=== PATIENT | male | born 1960 | race Two or more races ===

== ENCOUNTER → 2016-04-01 | Outpatient (CLI) | payer OTHER ==
[~2016-04-01] MED LIST: /WARF25TA PO; ALBU17IN INH; EFFE37.527 PO; METOPROLOL SUCCINATE; OMEPPOW18 OR; OXYC30TA4 PO; PERCOCET PO; PRAV40TA PO; PRIL20CA9 PO; SING10TA32 PO; TOPR25TA PO; TYLE325T5 PO; VENL37TA OR; albuterol inhaler INH; allergy shots; effexor OR; pravastatin OR
[2016-04-01 12:25] LABS: MEAN CORPUSCULAR HEMOGLOBIN 32.3 pg (27.0-33.0); MEAN CORPUSCULAR HGB CONC 34.6 g/dl (32.0-36.5); MEAN CORPUSCULAR VOLUME 93.2 fl (80.0-96.0); RED CELL DISTRIBUTION WIDTH 12.5 % (11.5-14.5); WHITE BLOOD COUNT 5.4 K/mm3 (4.0-10.0)
[2016-04-01 12:29] LABS: INR 0.96
[2016-04-01 13:02] LABS: ALBUMIN 4.1 GM/DL (3.2-5.2); ALBUMIN/GLOBULIN RATIO 1.17 (1.00-1.93); ALKALINE PHOSPHATASE 80 U/L (45-117); ALT/SGPT 53 U/L (12-78); ANION GAP 7 MEQ/L (8-16); AST/SGOT 29 U/L (15-37); BILIRUBIN,TOTAL 0.8 MG/DL (0.2-1.0); BLOOD UREA NITROGEN 13 MG/DL (7-18); CALCIUM LEVEL 9.3 MG/DL (8.5-10.1); CARBON DIOXIDE LEVEL 28 MEQ/L (21-32); CHLORIDE LEVEL 102 MEQ/L (98-107); CREATININE FOR GFR 1.03 MG/DL (0.70-1.30); GLOMERULAR FILTRATION RATE > 60.0 (>56); GLUCOSE, FASTING 96 MG/DL (70-105); POTASSIUM SERUM 4.5 MEQ/L (3.5-5.1); SODIUM LEVEL 137 MEQ/L (136-145); TOTAL PROTEIN 7.6 GM/DL (6.4-8.2)
--- NOTE | 2016-04-01 16:16 | REP ---
Chest x-ray: Two views. History: Hypertension. Comparison study: April 11, 2014 . Findings: The lungs are well inflated and free of infiltrate. The pleural angles are sharp. The heart size is normal. Pulmonary vasculature is not increased. No significant bony abnormality is seen. Impression: Negative chest x-ray. Signed by Michael Morales MD 04/01/2016 04:08 P
--- NOTE | 2016-04-01 23:14 | ECGEPIP ---
Stationary ECG Study [facility] Test Date: 2016-04-01 Pat Name: ELVA ODDD Department: Room: - Gender: M Cardiac Rehabilitation Program Director: JULIAN : 1960 Requested By: Jada George Order Number: [id number] Reading MD: Willem Vaughan Measurements Intervals [place] Rate: 55 P: 30 WI: 184 QRS: 23 QRSD: 106 T: 20 QT: 407 QTc: 391 Interpretive Statements SINUS BRADYCARDIA SIMILAR 04/01/14 Electronically Signed On 04-01-2016 23:13:30 EST by Willem Vaughan
== END ==
LOC: EDSTATUS 10:30 → M ADMPAT 10:35
PROVIDERS: ATTEND Orthopaedic Surgery
DX: Z01.818 Encounter for other preprocedural examination (principal); M17.11 Unilateral primary osteoarthritis, right knee

== ENCOUNTER 2016-04-13 09:57 | Inpatient (IN) | payer OTHER ==
[2016-04-01 11:18] VITALS: BP 155/84
[~2016-04-13] VITALS: Ht 185.4 cm; Wt 120.0 kg
[2016-04-13] MEDS ORDERED: LR 1,000 ML IV SCH ×4 (10:15→15:00)
[2016-04-13] MEDS ORDERED: VANCOMYCIN HCL 1,000 MG, VIAL MATE ADAPTER 1 EACH in D5W 250 ML IV ONE ×2 (10:15→23:00)
[2016-04-13] MEDS ORDERED: ACETAMINOPHEN 500 MG TAB PO ONE (10:15)
[2016-04-13] MEDS ORDERED: TRANEXAMIC ACID 100 MG/ML 10ML VIAL As Ordered ONE (10:29)
[2016-04-13] MEDS ORDERED: ROPIvacaine 0.5% 30 ML INJECTION (J2795) As Ordered ONE (10:29)
[2016-04-13] MEDS ORDERED: BUPIVACAINE HCL 0.5% 10 ML VIAL As Ordered ONE (10:30)
[2016-04-13] MEDS ORDERED: EPINEPHrine INJ 1 MG/ML 1ML VIAL/AMP As Ordered ONE (10:30)
[2016-04-13] MEDS ORDERED: ceFAZolin 1GM INJ (J0690) As Ordered ONE (10:30)
[2016-04-13] MEDS ORDERED: CLINDAMYCIN INJ 900MG/6ML VIAL As Ordered ONE (10:39)
[2016-04-13] MEDS ORDERED: fentaNYL 100 MCG/2 ML INJECTION (J3010) As Ordered ONE ×3 (10:51→12:34)
[2016-04-13] MEDS ORDERED: MIDAZOLAM INJ 2 MG/2 ML VIAL (J2250) As Ordered ONE ×2 (10:51→11:48)
[2016-04-13] MEDS ORDERED: XANA0.5T PO (10:57)
[2016-04-13] MEDS ORDERED: PROPOFOL 200 MG/20 ML VIAL As Ordered ONE ×2 (12:34→13:11)
[2016-04-13] MEDS ORDERED: LIDOCAINE 2% INJ 100 MG/5 ML SDV (FOR ANES.) As Ordered ONE (12:34)
[2016-04-13] MEDS ORDERED: TRANEXAMIC ACID 100 MG/ML 10ML VIAL XX ONE (12:52)
[2016-04-13] MEDS ORDERED: CLINDAMYCIN INJ 900MG/6ML VIAL IR ONE (12:52)
[2016-04-13] MEDS ORDERED: fentaNYL 100 MCG/2 ML INJECTION (J3010) XX ONE (12:52)
[2016-04-13] MEDS ORDERED: BUPIVACAINE HCL 0.5% 10 ML VIAL XX ONE (12:52)
[2016-04-13] MEDS ORDERED: EPINEPHrine INJ 1 MG/ML 1ML VIAL/AMP XX ONE (12:52)
[2016-04-13] MEDS ORDERED: ROPIvacaine 0.5% 30 ML INJECTION (J2795) XX ONE (12:52)
[2016-04-13] MEDS ORDERED: MIDAZOLAM INJ 2 MG/2 ML VIAL (J2250) IV ONE (13:00)
[2016-04-13] MEDS ORDERED: fentaNYL 100 MCG/2 ML INJECTION (J3010) IV ONE (13:00)
[2016-04-13] MEDS ORDERED: dexameTHASONE 10 MG/1 ML VIAL PRES.FREE (J1100) ONE (13:18)
[2016-04-13] MEDS ORDERED: LIDOCAINE W/EPINEPHRINE 1% 20ML VIAL ONE (13:18)
[2016-04-13] MEDS ORDERED: ROPIvacaine 0.5% 30 ML INJECTION (J2795) ONE (13:18)
[2016-04-13] MEDS ORDERED: MORPHINE PCA 1MG/ML 100ML CADD As Ordered ONE (14:19)
[2016-04-13] MEDS ORDERED: FLEET ENEMA PR PRN (14:45)
[2016-04-13] MEDS ORDERED: ALPRAZolam 0.25 MG TAB PO PRN (14:45)
[2016-04-13] MEDS ORDERED: ALBUTEROL 90 MCG/ACT 8GM HFA INHALER INH PRN (14:45)
[2016-04-13] MEDS ORDERED: diphenhydrAMINE INJ 50MG/ML VIAL (J1200) IV PRN (15:00)
[2016-04-13] MEDS ORDERED: PATIENT IS CURRENTLY ON AN ON-Q PAIN BUSTER PAIN RELIEF SYSTEM XX SCH (15:00)
[2016-04-13] MEDS ORDERED: EPIDURAL/PCA KEYS XX PRN (15:00)
[2016-04-13] MEDS ORDERED: fentaNYL 100 MCG/2 ML INJECTION (J3010) IV PRN (15:00)
[2016-04-13] MEDS ORDERED: NALBUPHINE HCL 10 MG/ML AMP (J2300) IV PRN (15:00)
[2016-04-13] MEDS ORDERED: MORPHINE 2 MG/ML 1ML SYRINGE IV PRN (15:00)
[2016-04-13] MEDS ORDERED: MORPHINE PCA 1MG/ML 100ML CADD IV PRN (15:00)
[2016-04-13] MEDS ORDERED: ONDANSETRON 4MG/2ML VIAL (J2405) IV PRN ×2 (15:00)
[2016-04-13] MEDS ORDERED: NALOXONE INJ 0.4 MG/1 ML VIAL (J2310) IV PRN (15:00)
[2016-04-13] MEDS ORDERED: WARFARIN SOD 5 MG TAB PO ONE (17:00)
--- NOTE | 2016-04-13 17:21 | CR ---
DATE OF CONSULTATION: 04/13/[address] Sumi Georges REFERRING PHYSICIAN: Dr. Perez REASON FOR CONSULTATION: Medical management. HOSPITALIZATION COURSE: The patient is a 55-year-old male with a past medical history significant for allergic rhinitis, hypertension, gastroesophageal reflux disease (GERD), anxiety, hyperlipidemia, bilateral osteoarthritis status post multiple knee procedures, reactive airway disease, who presented to [facility] on 04/13/2016 for right knee replacement. Preoperative clearance was done by Dr. Neno Ortiz on 04/03/2016. The patient tolerated the procedure well. No complications. After the surgery, the hospitalist team was called for medical management. ALLERGIES: CEPHALEXIN. PAST MEDICAL HISTORY: 1. Allergic rhinitis. 2. Hypertension. 3. Gastroesophageal reflux disease (GERD). 4. Anxiety. 5. Hyperlipidemia. 6. Osteoarthritis. 7. Reactive airway disease. PAST SURGICAL HISTORY: Five knee surgeries in the past. Two sinus surgeries. SOCIAL HISTORY: Denies smoking. Drinks wine almost every night. No recreational drug use. REVIEW OF SYSTEMS: GENERAL: No fever or chills. HEENT: No vision changes. No auditory changes. CARDIOVASCULAR: No chest pain, palpitations. RESPIRATORY: Reactive airway disease, uses breathing treatments intermittently. On Singulair. Currently no cough, no wheezes, no shortness of breath. GASTROINTESTINAL: No nausea. No vomiting. No abdominal pain. No diarrhea. MUSCULOSKELETAL: Multiple knee surgeries in the past. Today has a right knee replacement. NEUROLOGIC: No numbness or tingling. VITAL SIGNS: Blood pressure is 117/75, heart rate is 52, respiration rate 16. PHYSICAL EXAMINATION: GENERAL: No acute distress. Alert and oriented times three. HEENT: Normocephalic, atraumatic. Extraocular muscles intact. CARDIOVASCULAR: Positive S1, S2. Regular rate. LUNGS: Clear to auscultation bilaterally. No wheezes or rhonchi. ABDOMEN: Obese. Soft, nontender, nondistended. Bowel sounds present. No rebound or guarding. EXTREMITIES: No edema. No sign of cyanosis. Thromboembolic compression stockings (TEDS), sequential compression device (SCD) in place. NEUROLOGIC: Sensation to fine touch is grossly intact. Muscle strength 5/5. LABORATORY DATA: WBC 5.4, hemoglobin 16.2, hematocrit 46.9, platelet count is 235. Sodium is 137, potassium 4.5, chloride 102, carbon dioxide 28, BUN 13, creatinine 1.03, GFR greater than 60, fasting glucose 96, calcium is 9.3, phosphorous 3, total bilirubin 0.8, AST is 29, ALT 53, alkaline phosphatase 80, total CK is 168. ASSESSMENT AND PLAN: 1. Right knee replacement. Surgery was performed by Dr. Perez on 04/13/2016. I will defer pain management, activity level, diet, and anticoagulation to the primary team. 2. Anxiety. The patient was restarted on Effexor 37.5 mg by mouth daily. At baseline, the patient uses Xanax weekly to control the flares. The patient will have Xanax as needed here. 3. Hypertension. We will continue the patient on metoprolol 20 mg by mouth daily. 4. Gastroesophageal reflux disease (GERD). Continue omeprazole 40 mg by mouth daily. 5. Reactive airway disease. Continue on Singulair. The patient has as needed albuterol nebulizers. 6. Deep vein thrombosis (DVT) prophylaxis. Per surgical team.
[2016-04-13 17:30] VITALS: BP 145/88
[2016-04-13 18:00] VITALS: BP 135/76
[2016-04-13] MEDS: MONTELUKAST 10 MG TAB PO SCH (18:06)
[2016-04-13 19:00] VITALS: BP 130/96
--- NOTE | 2016-04-13 19:14 | RO ---
DATE OF PROCEDURE: 04/13/2016 PREPROCEDURE DIAGNOSIS: Right knee degenerative arthritis. POSTPROCEDURE DIAGNOSIS: Right knee degenerative arthritis. PROCEDURE: Right total knee arthroplasty using a size 5 cruciate-retaining femoral component, size 5 tibial tray, 10.5 mm rotating platform polyethylene insert and a 38 mm polyethylene button. Prosthesis made by [employer] is a PFC knee. SURGEON: Dr. Jada Perez CRANE HOIST OR LIFT OPERATOR: Mr. Sergey Hewitt ANESTHESIA: Spinal. COMPLICATIONS: None. ESTIMATED BLOOD LOSS: Less than 20 mL. DRAINS: One, PainBuster. SPECIMENS: Joint surface. DESCRIPTION OF PROCEDURE: Antibiotics were given intravenously preoperatively successfully, then a Elkins catheter was placed, tourniquet placed on the right upper thigh and not inflated. The right lower extremity was prepped and draped in the usual sterile fashion and then the leg was elevated. After appropriate time out, tourniquet was inflated, longitudinal incision was made for a medial parapatellar approach to the knee. Bovie cautery was used to coagulate crossing vessels. A medial parapatellar arthrotomy was performed. Subperiosteal dissection around the proximal and medial portion of the tibia was performed, then we everted the patella and flexed the knee. It was noteworthy he had a large Juliocesar-Schlatter ossicle, which we left alone at the insertion of the patellar tendon over the tibial tubercle. The starter reamer was placed down the center of the femoral canal, followed by the distal femoral cutting jig set at 10 mm resection level at 5 degree valgus for a right knee. I did remove any remaining bits of cartilage off the medial femoral condyle such that the distal femoral block would sit flush. It was pinned into position, the distal femoral cut performed. We took an additional 2 mm because of his flexion contracture. The AP sizing jig measured for about a 5.2, so I pinned it in place and elected to use a #5. The 3-degree external rotation block was placed and drill holes were made and the 4-in-1 block applied, then the anterior, posterior, chamfer cuts performed. We then exposed the proximal tibia, performed a proximal tibial osteotomy using the extramedullary alignment jig, making sure we were parallel to the mechanical axis, referencing off the medial tibial condyle and selected a 4 mm resection level. Block was pinned into place. Secondary check with the extramedullary mena confirmed we had good alignment and thus the osteotomy was performed. We then placed the lamina medical records administrator medially and performed a completion lateral meniscectomy and debridement of posterolateral osteophytes. We then placed the lamina medical records administrator laterally and performed a completion medial meniscectomy, debridement of the posteromedial osteophytes, as well as made sure we had good posteromedial release. The sizing block measured nicely at 10 mm in flexion and 11 mm in extension with very good stability of varus, valgus, AP stress testing. Thus, I felt this was the appropriate size component to use. We then exposed the proximal tibia, sized for a #5 tibial tray, which was pinned into position, followed by the reamer and the broach, then the trial polyethylene was applied, followed by the trial femoral component, and the knee was brought into extension. He had excellent stability once again in flexion and extension to AP and varus/valgus stress testing. With the knee in extension, I everted the patella, performed a patellar osteotomy, sized for a 38 mm button. The lug holes were drilled. Patellofemoral tracking was anatomic. We drilled the lug holes for the femur, removed all of the trial components, then copiously pulsatile lavage irrigated out the knee joint. I did do a little bit of posterior cruciate ligament release just to help a bit with some excessive posterior roll back in extreme flexion. Mr. Hewitt was critical to the success of the procedure by helping with appropriate soft tissue retraction, helping to manipulate the knee and helped to close the wound and prepare the patient for surgery, amongst many other tasks, as well as mixing the cement. Once all of the bony surfaces had been thoroughly dried, I cemented the tibial tray, removed excess cement, placed the polyethylene, then we cemented the femoral component and brought the knee into extension, and then cemented the patellar button and held it with a clamp until the cement had hardened. While we were waiting for it to harden, we copiously pulsatile lavage irrigated out the knee joint as I did several times throughout the operation. We then put two #1 PDS sutures at the apex proximally of the arthrotomy and then one at the medial parapatellar area to set the tension and then used a running double-armed Stratafix to close the capsule. The tourniquet was released at this point. TXA was placed prior to closure of the capsule and then we placed the PainBuster catheter from superolateral puncture underneath the capsule after the capsule had been closed. We copiously irrigated the subdermal tissues, they were then closed with interrupted #2-0 PDS sutures, skin was closed with stefany, covered by Adaptic dry sterile bulky dressing. He was then transferred to the recovery room in stable condition. There were no intraoperative complications.
[2016-04-13 20:00] VITALS: BP 144/83
[2016-04-13 21:00] VITALS: BP 134/86
[2016-04-13 22:00] VITALS: BP_SYST 144; BP_DIAS 81; BP_DIAS 83
[2016-04-14 02:00] VITALS: BP 108/79
[2016-04-14 06:00] VITALS: BP 126/72
[2016-04-14] MEDS ORDERED: ONDANSETRON 4 MG TAB (S0181) PO PRN (06:30)
[2016-04-14] MEDS ORDERED: PERCOCET 5MG/325MG TAB PO PRN (06:30)
[2016-04-14 07:11] LABS: MEAN CORPUSCULAR HEMOGLOBIN 33.2 pg (27.0-33.0); MEAN CORPUSCULAR HGB CONC 34.6 g/dl (32.0-36.5); RED CELL DISTRIBUTION WIDTH 12.7 % (11.5-14.5); WHITE BLOOD COUNT 14.4 K/mm3 (4.0-10.0)
[2016-04-14 07:19] LABS: INR 1.08
[2016-04-14 07:20] LABS: ANION GAP 6 MEQ/L (8-16); BLOOD UREA NITROGEN 10 MG/DL (7-18); CALCIUM LEVEL 8.5 MG/DL (8.5-10.1); CARBON DIOXIDE LEVEL 31 MEQ/L (21-32); CHLORIDE LEVEL 100 MEQ/L (98-107); GLOMERULAR FILTRATION RATE > 60.0 (>56); GLUCOSE, FASTING 127 MG/DL (70-105); POTASSIUM SERUM 4.1 MEQ/L (3.5-5.1); SODIUM LEVEL 137 MEQ/L (136-145)
[2016-04-14] MEDS: OMEPRAZOLE 20 MG CAP PO SCH (09:00)
[2016-04-14] MEDS: VENLAFAXINE **XR** 37.5 MG CAPSULE PO SCH (09:00)
[2016-04-14] MEDS: METOPROLOL SUCC *XL* 25MG TAB (TopROL *XL*) PO SCH (09:00)
[2016-04-14] MEDS ORDERED: VENLAFAXINE **XR** 37.5 MG CAPSULE PO SCH (09:00)
[2016-04-14] MEDS: PRAVASTATIN 20 MG TAB PO SCH (09:00)
[2016-04-14] MEDS ORDERED: MONTELUKAST 10 MG TAB PO SCH (09:00)
[2016-04-14] MEDS ORDERED: OMEPRAZOLE 20 MG CAP PO SCH (09:00)
[2016-04-14] MEDS: SENOKOT S TAB PO SCH ×2 (09:26→21:45)
[2016-04-14] MEDS: MIRALAX *UNIT DOSE* 17GM PACKET PO SCH (09:26)
[2016-04-14] MEDS: MOM 30ML SUSPENSION UDC PO SCH (09:26)
[2016-04-14] MEDS: MONTELUKAST 10 MG TAB PO SCH (09:29)
[2016-04-14] MEDS: PERCOCET 5MG/325MG TAB PO PRN ×4 (09:30→21:47)
[2016-04-14 10:00] VITALS: BP 135/76
--- NOTE | 2016-04-14 11:25 | REP ---
Clinical: Status post arthroplasty. Technique: AP and cross-table lateral views. Findings: The patient is status post right knee replacement with normal positioning and appearance to the femoral and tibial components. Overlying postsurgical changes appreciated. Impression: Satisfactory right knee replacement radiographs. Signed by Jonny Patterson MD 04/14/2016 11:17 A
[2016-04-14 14:00] VITALS: BP 138/78
[2016-04-14] MEDS ORDERED: WARFARIN SOD 5 MG TAB PO ONE (17:00)
[2016-04-14 22:00] VITALS: BP 167/88
[2016-04-15] MEDS: ACETAMINOPHEN TAB 650MG DOSE (2X325MG) PO PRN ×2 (00:20→05:06)
--- NOTE | 2016-04-15 00:35 | IPNPDOC ---
Subjective General Date Seen The patient was seen on 04/14/16. Subjective Chief Complaint/HPI The patient is a 55-year-old male admitted with a reason for visit of Arthritis Right Knee. Today he reports that his pain is controlled. He feels "groggy" on the pain medications. Was able to eat dinner last night. Has not had a BM since surgery. Needed O2 overnight because his saturations were low. Denies any fevers, dyspnea , SOB. Has some knee soreness around surgical site. General: Reports: Normal Appetite, Denies: Chills, Fatigue, Malaise, Night Sweats Constitutional: Denies: Chills, Fever, Night Sweats Pulmonary: Denies: Cough, Dyspnea Cardiovascular: Denies: Chest Pain, Lt Headedness, Orthopnea, Palpitations, Paroxysmal Noc. Dyspnea Gastrointestinal: Denies: Abdominal Pain, Constipation, Diarrhea, Nausea, Vomiting Musculoskeletal: Reports: Joint Pain (L knee soreness, postop), Denies: Back Pain, Muscle Pain, Neck Pain, Spasms Objective Physical Examination General Exam: Positive: Alert, No Acute Distress Neck Exam: Positive: Supple, Negative: JVD, thyromegaly Chest Exam: Positive: Clear to auscultation, Normal air movement Heart Exam: Positive: Normal S1, Normal S2, Rate Normal, Regular Rhythm, Negative: Murmurs, Rubs Abdomen Exam: Positive: Normal bowel sounds, Soft, Negative: Hepatospenomegaly, Tenderness Skin Exam: Positive: Other skin issue (Surgical incision site on R knee. Dressing intact. No swelling or edema to surrounding skin.) Neuro Exam: Positive: Normal Speech Assessment /Plan Problems Problems: (1) Degenerative arthritis of right knee Status: Acute Problem Text: Post op day #1 s/p Right total knee arthroplasty Surgical site dressed and intact. No swelling to surrounding skin. Pt still feels sore, but is tolerated with pain medications that are managed by ortho. (2) HTN (hypertension) Status: Chronic Problem Text: BP controlled today, we will continue to monitor. Pt was continued on home medication (3) Reactive airway disease Status: Acute Problem Text: Cont Singulair. No respiratory symptoms today. (4) Anxiety Status: Chronic Problem Text: Restarted on home medications for anxiety. (5) GERD (gastroesophageal reflux disease) Status: Chronic Problem Text: Cont on home medications. stable today. Plan/VTE VTE Prophylaxis Ordered?: Yes VS, I&O, 24H, Fishbone Vital Signs/I&O Vital Signs Date Time Temp Pulse Resp B/P Pulse Ox O2 Delivery O2 Flow Rate FiO2 04/14/16 09:30 18 04/14/16 06:00 96.7 88 126/72 97 Room Air 04/14/16 05:37 2.0 I&O- Last 24 Hours up to 6 AM 04/14/16 06:00 Intake Total 2140 ml Output Total 2300 ml Balance -160 ml Laboratory Data 24H LABS Laboratory Tests 2 04/14/16 06:24: Anion Gap 6L, Blood Urea Nitrogen 10, Creatinine 0.90, Sodium Level 137, Potassium Level 4.1, Chloride Level 100, Carbon Dioxide Level 31, Calcium Level 8.5, Glomerular Filtration Rate > 60.0, Prothromb Time International Ratio 1.08 , Prothrombin Time 14.1 CBC/BMP Laboratory Tests 04/14/16 06:24 Calcium Level 8.5, Red Blood Count 4.53, Mean Corpuscular Volume 96.0, Mean Corpuscular Hemoglobin 33.2 H, Mean Corpuscular Hemoglobin Concent 34.6, Red Cell Distribution Width 12.7 SUSAN SWAN DO Apr 14, 2016 10:43
[2016-04-15] MEDS: PERCOCET 5MG/325MG TAB PO PRN ×4 (02:02→17:00)
[2016-04-15 06:00] VITALS: BP 182/90
[2016-04-15] MEDS ORDERED: MORPHINE 15 MG SA TAB As Ordered ONE (06:52)
[2016-04-15] MEDS: MORPHINE 15 MG SA TAB PO SCH ×2 (06:53→21:04)
[2016-04-15 06:58] LABS: MEAN CORPUSCULAR HEMOGLOBIN 32.2 pg (27.0-33.0); MEAN CORPUSCULAR HGB CONC 33.8 g/dl (32.0-36.5); MEAN CORPUSCULAR VOLUME 95.3 fl (80.0-96.0); WHITE BLOOD COUNT 9.6 K/mm3 (4.0-10.0)
[2016-04-15 07:00] LABS: INR 1.28
[2016-04-15 07:04] LABS: ANION GAP 8 MEQ/L (8-16); BLOOD UREA NITROGEN 8 MG/DL (7-18); CALCIUM LEVEL 8.4 MG/DL (8.5-10.1); CARBON DIOXIDE LEVEL 31 MEQ/L (21-32); CHLORIDE LEVEL 97 MEQ/L (98-107); CREATININE FOR GFR 0.95 MG/DL (0.70-1.30); GLOMERULAR FILTRATION RATE > 60.0 (>56); GLUCOSE, FASTING 113 MG/DL (70-105); POTASSIUM SERUM 3.9 MEQ/L (3.5-5.1); SODIUM LEVEL 136 MEQ/L (136-145)
[2016-04-15] MEDS: SENOKOT S TAB PO SCH ×2 (08:49→21:05)
[2016-04-15] MEDS: PRAVASTATIN 20 MG TAB PO SCH (08:49)
[2016-04-15] MEDS: METOPROLOL SUCC *XL* 25MG TAB (TopROL *XL*) PO SCH (08:50)
[2016-04-15] MEDS: VENLAFAXINE **XR** 37.5 MG CAPSULE PO SCH (08:50)
[2016-04-15] MEDS: OMEPRAZOLE 20 MG CAP PO SCH (08:51)
[2016-04-15] MEDS: MOM 30ML SUSPENSION UDC PO SCH (08:51)
[2016-04-15] MEDS: MONTELUKAST 10 MG TAB PO SCH (08:51)
[2016-04-15] MEDS: MIRALAX *UNIT DOSE* 17GM PACKET PO SCH (08:52)
[2016-04-15] MEDS: ALBUTEROL 90 MCG/ACT 8GM HFA INHALER INH PRN ×2 (08:58→20:12)
[2016-04-15] MEDS ORDERED: MORPHINE 30 MG SA TAB PO SCH (09:00)
[2016-04-15] MEDS ORDERED: MORPHINE 15 MG SA TAB PO SCH (09:00)
[2016-04-15 14:00] VITALS: BP 152/88
[2016-04-15 22:00] VITALS: BP 158/77
[2016-04-16] MEDS: PERCOCET 5MG/325MG TAB PO PRN ×2 (01:08→05:36)
[2016-04-16 06:00] VITALS: BP 143/83
[2016-04-16] MEDS ORDERED: MAGNESIUM CITRATE 300 ML BTL PO ONE (06:45)
[2016-04-16 07:17] LABS: INR 1.11
[2016-04-16 07:19] LABS: MEAN CORPUSCULAR HGB CONC 33.6 g/dl (32.0-36.5); MEAN CORPUSCULAR VOLUME 95.3 fl (80.0-96.0); RED CELL DISTRIBUTION WIDTH 12.7 % (11.5-14.5)
[2016-04-16] MEDS: ALBUTEROL 90 MCG/ACT 8GM HFA INHALER INH PRN (07:30)
[2016-04-16 07:37] LABS: ANION GAP 7 MEQ/L (8-16); BLOOD UREA NITROGEN 8 MG/DL (7-18); CALCIUM LEVEL 8.4 MG/DL (8.5-10.1); CARBON DIOXIDE LEVEL 32 MEQ/L (21-32); CHLORIDE LEVEL 99 MEQ/L (98-107); CREATININE FOR GFR 0.96 MG/DL (0.70-1.30); GLOMERULAR FILTRATION RATE > 60.0 (>56); GLUCOSE, FASTING 108 MG/DL (70-105); POTASSIUM SERUM 3.7 MEQ/L (3.5-5.1); SODIUM LEVEL 138 MEQ/L (136-145)
[2016-04-16] MEDS ORDERED: MORP-38 PO (07:55)
[2016-04-16] MEDS ORDERED: PERC5TAB6 PO (07:55)
[2016-04-16] MEDS ORDERED: COUM2.5T11 PO (07:55)
[2016-04-16] MEDS ORDERED: ENOXAPARIN 40 MG/0.4 ML SYRINGE (J1650) SC ONE (08:00)
--- NOTE | 2016-04-16 08:32 | IPNPDOC ---
Subjective General Date Seen The patient was seen on 04/16/16. Subjective Chief Complaint/HPI The patient is a 55-year-old male admitted with a reason for visit of Arthritis Right Knee. Events since last encounter pt seen and examined, doing well, wants to go home today Constitutional: Denies: Chills, Fever, Night Sweats Pulmonary: Denies: Cough, Dyspnea Cardiovascular: Denies: Chest Pain, Lt Headedness, Orthopnea, Palpitations, Paroxysmal Noc. Dyspnea Objective Physical Examination General Exam: Positive: Alert, No Acute Distress Neck Exam: Positive: Supple, Negative: JVD, thyromegaly Chest Exam: Positive: Clear to auscultation, Normal air movement Heart Exam: Positive: Normal S1, Normal S2, Rate Normal, Regular Rhythm, Negative: Murmurs, Rubs Abdomen Exam: Positive: Normal bowel sounds, Soft, Negative: Hepatospenomegaly, Tenderness Skin Exam: Positive: Other skin issue (Surgical incision site on R knee. Dressing intact. No swelling or edema to surrounding skin.) Neuro Exam: Positive: Normal Speech Assessment /Plan Problems Problems: (1) Degenerative arthritis of right knee Status: Acute Problem Text: * Post op day #3 s/p Right total knee arthroplasty * Surgical site dressed and intact. No swelling to surrounding skin. * can be discharged today (2) HTN (hypertension) Status: Chronic Problem Text: BP controlled today, Pt was continued on home medication (3) Reactive airway disease Status: Acute Problem Text: Cont Singulair. No respiratory symptoms today. (4) Anxiety Status: Chronic Problem Text: continue home medications for anxiety. (5) GERD (gastroesophageal reflux disease) Status: Chronic Problem Text: Cont on home medications. stable today. Plan/VTE VTE Prophylaxis Ordered?: Yes VS, I&O, 24H, Fishbone Vital Signs/I&O Vital Signs Date Time Temp Pulse Resp B/P Pulse Ox O2 Delivery O2 Flow Rate FiO2 04/16/16 07:56 Room Air 04/16/16 06:06 18 04/16/16 06:00 97.8 70 143/83 94 04/14/16 05:37 2.0 I&O- Last 24 Hours up to 6 AM 04/16/16 06:00 Intake Total 2280 ml Output Total 2050 ml Balance 230 ml Laboratory Data 24H LABS Laboratory Tests 2 04/16/16 06:59: Anion Gap 7L, Blood Urea Nitrogen 8, Creatinine 0.96, Sodium Level 138, Potassium Level 3.7, Chloride Level 99, Carbon Dioxide Level 32, Calcium Level 8.4L, Glomerular Filtration Rate > 60.0, Prothromb Time International Ratio 1.11 , Prothrombin Time 14.4 CBC/BMP Laboratory Tests 04/16/16 06:59 Calcium Level 8.4 L, Red Blood Count 3.94 L, Mean Corpuscular Volume 95.3, Mean Corpuscular Hemoglobin 32.0, Mean Corpuscular Hemoglobin Concent 33.6, Red Cell Distribution Width 12.7 PATRICK GARAY DO Apr 16, 2016 08:32
[2016-04-16] MEDS: PRAVASTATIN 20 MG TAB PO SCH (09:43)
[2016-04-16] MEDS: MOM 30ML SUSPENSION UDC PO SCH (09:43)
[2016-04-16] MEDS: MONTELUKAST 10 MG TAB PO SCH (09:44)
[2016-04-16] MEDS: VENLAFAXINE **XR** 37.5 MG CAPSULE PO SCH (09:44)
[2016-04-16] MEDS: MORPHINE 15 MG SA TAB PO SCH (09:44)
[2016-04-16] MEDS: SENOKOT S TAB PO SCH (09:44)
[2016-04-16 09:45] VITALS: BP 143/83
[2016-04-16] MEDS: OMEPRAZOLE 20 MG CAP PO SCH (09:45)
[2016-04-16] MEDS: METOPROLOL SUCC *XL* 25MG TAB (TopROL *XL*) PO SCH (09:45)
[2016-04-16] MEDS: MIRALAX *UNIT DOSE* 17GM PACKET PO SCH (09:45)
--- NOTE | 2016-04-16 10:10 | NOCOX ---
DATE OF PROCEDURE: Nocturnal recording oximetry was performed on room air. Baseline oxygen saturation was 92%. Lowest oxygen saturation recorded was 84%. The pattern was one of periodic variable desaturations. IMPRESSION: Normal baseline oxygen saturation on room air with pattern of periodic desaturations consistent with obstructive sleep apnea syndrome. Consider formal sleep testing if clinically indicated.
--- NOTE | 2016-04-20 10:08 | DSES ---
DATE OF ADMISSION: 04/13/2016 DATE OF DISCHARGE: 04/16/2016 ADMISSION DIAGNOSIS: Right knee osteoarthritis. DISCHARGE DIAGNOSIS: Status post right total knee arthroplasty. HOSPITAL COURSE: The patient uneventfully underwent right total knee arthroplasty under spinal anesthesia. Medical optimization per Dr. Neno Ortiz. X-rays are consistent with advanced osteoarthritis. OPERATION PERFORMED: Right total knee arthroplasty. HOSPITAL COURSE: The patient uneventfully underwent right total knee arthroplasty under spinal anesthesia and was returned to postanesthesia care unit (PACU) comfortable. Our hospital team decided to discharge the patient on 04/16/2016, with the following instructions. Weightbearing as tolerated right lower extremity with walker. Percocet as needed for pain. Coumadin and thromboembolic deterrent (ANUJ) stockings times 30 days. Diet as regular. Optifoam dressing change in 4 days time. Followup in office 12-14 days for wound check, staple removal. The patient is encouraged to contact our office sooner with increased pain, bleeding, drainage, radiating leg discomfort, fever greater than 101 or further concerns. MTDDon
== END 2016-04-16 11:32 | disposition home health service (06) | DRG 302 ==
LOC: M OR 09:57 → M MS5PR 17:10
PROVIDERS: ADMIT Orthopaedic Surgery; ATTEND Orthopaedic Surgery
PROC: 0SRC0J9 Replacement of Right Knee Joint with Synthetic Substitute, Cemented, Open Approach (ICD-10-PCS; principal; 2016-04-13 11:50)
DX: M17.11 Unilateral primary osteoarthritis, right knee (principal); I10 Essential (primary) hypertension; J45.909 Unspecified asthma, uncomplicated; K21.9 Gastro-esophageal reflux disease without esophagitis; F41.8 Other specified anxiety disorders; E78.2 Mixed hyperlipidemia; E66.9 Obesity, unspecified; Z88.1 Allergy status to other antibiotic agents; Z79.1 Long term (current) use of non-steroidal anti-inflammatories (NSAID); Z79.51 Long term (current) use of inhaled steroids; Z79.899 Other long term (current) drug therapy; Z96.652 Presence of left artificial knee joint; Z68.38 Body mass index [BMI] 38.0-38.9, adult

== ENCOUNTER 2017-07-05 14:48 | Inpatient (IN) | payer OTHER ==
[2017-07-05 15:31] LABS: BASO % 0.1 % (0.0-1.0); EOS % 0.1 % (0.0-3.0); HEMATOCRIT 46.9 % (42.0-52.0); HEMOGLOBIN 16.2 g/dl (13.5-17.5); IMMATURE GRANULOCYTE % 0.3 % (0-3.0); LYMPH # 0.8 10^3/uL (1.5-4.5); LYMPH % 5.6 % (24.0-44.0); MEAN CORPUSCULAR HEMOGLOBIN 32.5 pg (27.0-33.0); MEAN CORPUSCULAR HGB CONC 34.5 g/dl (32.0-36.5); MEAN CORPUSCULAR VOLUME 94.2 fl (80.0-96.0); MONO # 0.9 10^3/uL (0.0-0.8); MONO % 5.8 % (0.0-5.0); NEUTROPHILS # 13.2 10^3/uL (1.8-7.7); NEUTROPHILS % 88.1 % (36.0-66.0); PLATELET COUNT, AUTOMATED 236 10^3/uL (150-450); RED BLOOD COUNT 4.98 10^6/uL (4.30-6.10); RED CELL DISTRIBUTION WIDTH 13.5 % (11.5-14.5)
[2017-07-05 15:54] LABS: ERYTHROCYTE SEDIMENTATION RATE 17 mm/hr (0-20)
[2017-07-05 15:58] LABS: ALBUMIN 3.6 GM/DL (3.2-5.2); ALBUMIN/GLOBULIN RATIO 0.82 (1.00-1.93); ALKALINE PHOSPHATASE 77 U/L (45-117); ALT/SGPT 33 U/L (12-78); ANION GAP 9 MEQ/L (8-16); AST/SGOT 21 U/L (7-37); BILIRUBIN,TOTAL 1.2 MG/DL (0.2-1.0); BLOOD UREA NITROGEN 10 MG/DL (7-18); CALCIUM LEVEL 9.2 MG/DL (8.5-10.1); CARBON DIOXIDE LEVEL 24 MEQ/L (21-32); CHLORIDE LEVEL 100 MEQ/L (98-107); CREATININE FOR GFR 1.05 MG/DL (0.70-1.30); GLOMERULAR FILTRATION RATE > 60.0 (>56); GLUCOSE, FASTING 142 MG/DL (70-100); POTASSIUM SERUM 3.9 MEQ/L (3.5-5.1); SODIUM LEVEL 133 MEQ/L (136-145)
[2017-07-05] MEDS: ACETAMINOPHEN TAB 650MG DOSE (2X325MG) PO ×2 (16:41→20:53)
[2017-07-05] MEDS ORDERED: MONTELUKAST 10 MG TAB PO (16:45)
[2017-07-05] MEDS: NS 500 ML IV (17:00)
[2017-07-05] MEDS: VANCOMYCIN HCL 1,000 MG, VIAL MATE ADAPTER 1 EACH in D5W 250 ML IV (17:16)
[2017-07-05] MEDS: MORPHINE 4 MG/ML 1ML VIAL/SYRINGE (J2270) IV (17:16)
[2017-07-05 18:15] LABS: KETONE, URINE AUTO RFX NEGATIVE (NEGATIVE); LEUKOCYTE ESTERASE UR AUTO RFX NEGATIVE (NEGATIVE); NITRITE, URINE AUTO RFX NEGATIVE (NEGATIVE); RBC, URINE AUTO RFX 5 /HPF (0-3); SQUAM EPITHELIAL CELL UR AURFX 0 /HPF (0-6); WBC, URINE AUTO RFX 1 /HPF (0-3)
[2017-07-05] MEDS: NS 1,000 ML IV (18:47)
[2017-07-05] MEDS: SENOKOT S TAB PO (20:52)
[2017-07-05] MEDS: ALBUTEROL 90 MCG/ACT 8GM HFA INHALER INH (21:59)
[2017-07-06] MEDS: ACETAMINOPHEN TAB 650MG DOSE (2X325MG) PO ×4 (01:37→20:21)
[2017-07-06] MEDS: VANCOMYCIN HCL 1,000 MG, VIAL MATE ADAPTER 1 EACH in D5W 250 ML IV ×3 (04:27→20:22)
[2017-07-06] MEDS: NS 1,000 ML IV (05:31)
[2017-07-06] MEDS: MORPHINE 4 MG/ML 1ML VIAL/SYRINGE (J2270) IV (05:32)
[2017-07-06 06:26] LABS: HEMATOCRIT 40.1 % (42.0-52.0); MEAN CORPUSCULAR HEMOGLOBIN 32.9 pg (27.0-33.0); MEAN CORPUSCULAR HGB CONC 35.2 g/dl (32.0-36.5); MEAN CORPUSCULAR VOLUME 93.5 fl (80.0-96.0); PLATELET COUNT, AUTOMATED 229 10^3/uL (150-450); RED BLOOD COUNT 4.29 10^6/uL (4.30-6.10); RED CELL DISTRIBUTION WIDTH 13.5 % (11.5-14.5); WHITE BLOOD COUNT 10.6 10^3/uL (4.0-10.0)
[2017-07-06] MEDS ORDERED: PERCOCET 5MG/325MG TAB PO ×2 (06:30→18:15)
[2017-07-06 06:33] LABS: HEMOGLOBIN 14.1 g/dl (13.5-17.5)
[2017-07-06 06:45] LABS: ANION GAP 7 MEQ/L (8-16); BLOOD UREA NITROGEN 9 MG/DL (7-18); CALCIUM LEVEL 8.5 MG/DL (8.5-10.1); CARBON DIOXIDE LEVEL 26 MEQ/L (21-32); CHLORIDE LEVEL 103 MEQ/L (98-107); CREATININE FOR GFR 0.92 MG/DL (0.70-1.30); GLOMERULAR FILTRATION RATE > 60.0 (>56); GLUCOSE, FASTING 105 MG/DL (70-100); POTASSIUM SERUM 3.5 MEQ/L (3.5-5.1); SODIUM LEVEL 136 MEQ/L (136-145)
[2017-07-06] MEDS: SENOKOT S TAB PO ×2 (08:22→20:22)
[2017-07-06] MEDS: PRAVASTATIN 20 MG TAB PO (08:22)
[2017-07-06] MEDS: METOPROLOL SUCC *XL* 25MG TAB (TopROL *XL*) PO (08:22)
[2017-07-06] MEDS: OMEPRAZOLE 20 MG CAP PO (08:23)
[2017-07-06] MEDS: PERCOCET 5MG/325MG TAB PO (09:51)
[2017-07-06] MEDS: TRANEXAMIC ACID 100 MG/ML 10ML VIAL As Ordered (14:14)
[2017-07-06] MEDS: EPINEPHrine INJ 1 MG/ML 1ML AMP As Ordered (14:14)
[2017-07-06] MEDS: BUPIVACAINE HCL 0.25% 10 ML VIAL As Ordered (14:14)
[2017-07-06] MEDS: BUPIVACAINE LIPOSOME/PF 1.3% 20 ML VIAL (13.3MG/ML)(EXPAREL) As Ordered (14:14)
[2017-07-06] MEDS ORDERED: TOBRAMYCIN SULF 1.2 GM VIAL (14:53)
[2017-07-06] MEDS ORDERED: TOBRAMYCIN SULF 1.2 GM VIAL As Ordered (14:53)
[2017-07-06] MEDS ORDERED: ALBUTEROL SULFATE 2.5 MG/0.5 ML INH NEB SOLN As Ordered (14:57)
[2017-07-06] MEDS: ALBUTEROL SULFATE 2.5 MG/0.5 ML INH NEB SOLN INH (15:10)
[2017-07-06] MEDS ORDERED: fentaNYL 100 MCG/2 ML INJECTION (J3010) As Ordered (16:14)
[2017-07-06] MEDS ORDERED: MIDAZOLAM INJ 2 MG/2 ML VIAL (J2250) As Ordered (16:14)
[2017-07-06] MEDS ORDERED: PROPOFOL 200 MG/20 ML VIAL As Ordered ×4 (16:14→17:10)
[2017-07-06] MEDS: CLINDAMYCIN INJ 900MG/6ML VIAL As Ordered ×2 (16:19→16:49)
[2017-07-06] MEDS: VANCOMYCIN 1000 MG/20 ML VIAL (J3370) As Ordered (17:23)
[2017-07-06] MEDS ORDERED: MORPHINE 1MG/ML IN 0.9% NACL 100ML IV BAG As Ordered (18:00)
[2017-07-06] MEDS ORDERED: MORPHINE 1MG/ML IN 0.9% NACL 100ML IV BAG IV (18:15)
[2017-07-06] MEDS ORDERED: ONDANSETRON 4MG/2ML VIAL (J2405) IV ×2 (18:15)
[2017-07-06] MEDS ORDERED: EPIDURAL/PCA KEYS XX (18:15)
[2017-07-06] MEDS ORDERED: NALOXONE INJ 0.4 MG/1 ML VIAL (J2310) IV (18:15)
[2017-07-06] MEDS: LR 1,000 ML IV ×2 (18:15→18:51)
[2017-07-06] MEDS ORDERED: NALBUPHINE HCL 10 MG/ML AMP (J2300) IV (18:15)
[2017-07-06] MEDS ORDERED: KETOROLAC 30 MG/ML VIAL (J1885) IV (18:15)
[2017-07-06] MEDS ORDERED: fentaNYL 100 MCG/2 ML INJECTION (J3010) IV (18:15)
[2017-07-06] MEDS ORDERED: FLEET ENEMA PR (18:30)
[2017-07-06] MEDS: WARFARIN SOD 5 MG TAB PO (20:22)
[2017-07-06] MEDS: diphenhydrAMINE INJ 50MG/ML VIAL (J1200) IV (20:22)
[2017-07-06] MEDS: ALBUTEROL 90 MCG/ACT 8GM HFA INHALER INH (22:50)
[2017-07-07] MEDS: ACETAMINOPHEN TAB 650MG DOSE (2X325MG) PO (00:45)
[2017-07-07] MEDS: ALPRAZolam 0.5 MG TAB PO (00:45)
[2017-07-07] MEDS: VANCOMYCIN HCL 1,000 MG, VIAL MATE ADAPTER 1 EACH in D5W 250 ML IV ×2 (04:13→12:31)
[2017-07-07 06:21] LABS: HEMATOCRIT 42.6 % (42.0-52.0); HEMOGLOBIN 14.3 g/dl (13.5-17.5); MEAN CORPUSCULAR HEMOGLOBIN 32.1 pg (27.0-33.0); MEAN CORPUSCULAR HGB CONC 33.6 g/dl (32.0-36.5); MEAN CORPUSCULAR VOLUME 95.7 fl (80.0-96.0); PLATELET COUNT, AUTOMATED 265 10^3/uL (150-450); RED BLOOD COUNT 4.45 10^6/uL (4.30-6.10); RED CELL DISTRIBUTION WIDTH 13.4 % (11.5-14.5); WHITE BLOOD COUNT 7.9 10^3/uL (4.0-10.0)
[2017-07-07 06:38] LABS: ANION GAP 7 MEQ/L (8-16); BLOOD UREA NITROGEN 9 MG/DL (7-18); CALCIUM LEVEL 8.7 MG/DL (8.5-10.1); CARBON DIOXIDE LEVEL 28 MEQ/L (21-32); CHLORIDE LEVEL 100 MEQ/L (98-107); CREATININE FOR GFR 0.88 MG/DL (0.70-1.30); GLOMERULAR FILTRATION RATE > 60.0 (>56); GLUCOSE, FASTING 98 MG/DL (70-100); POTASSIUM SERUM 3.6 MEQ/L (3.5-5.1); SODIUM LEVEL 135 MEQ/L (136-145)
[2017-07-07] MEDS: METOPROLOL SUCC *XL* 25MG TAB (TopROL *XL*) PO (06:38)
[2017-07-07 06:46] LABS: INR 1.08; PROTHROMBIN TIME 14.2 SECONDS (12.4-14.5)
[2017-07-07] MEDS ORDERED: ONDANSETRON 4 MG TAB (S0181) PO (07:00)
[2017-07-07] MEDS ORDERED: PERCOCET 5MG/325MG TAB PO (07:00)
[2017-07-07] MEDS: MOM 30ML SUSPENSION UDC PO (08:10)
[2017-07-07] MEDS: MIRALAX *UNIT DOSE* 17GM PACKET PO (08:10)
[2017-07-07] MEDS: OMEPRAZOLE 20 MG CAP PO (08:10)
[2017-07-07] MEDS: PRAVASTATIN 20 MG TAB PO (08:11)
[2017-07-07] MEDS: MORPHINE 15 MG SA TAB PO ×2 (08:11→21:43)
[2017-07-07] MEDS: SENOKOT S TAB PO ×2 (08:12→21:43)
[2017-07-07] MEDS: ALBUTEROL 90 MCG/ACT 8GM HFA INHALER INH (09:59)
[2017-07-07] MEDS: PERCOCET 5MG/325MG TAB PO ×2 (12:30→17:38)
[2017-07-07] MEDS ORDERED: VANCOMYCIN HCL 750 MG, VIAL MATE ADAPTER 1 EACH in D5W 250 ML IV (13:00)
[2017-07-07] MEDS: WARFARIN SOD 7.5 MG TAB PO (17:37)
[2017-07-07] MEDS: CETIRIZINE (ZyrTEC) 10 MG TAB PO (18:31)
[2017-07-08] MEDS: PERCOCET 5MG/325MG TAB PO ×2 (03:02→17:15)
[2017-07-08] MEDS: SODIUM CHLORIDE 0.9% INJ 10 ML SYR IV ×3 (06:00→17:16)
[2017-07-08 06:35] LABS: HEMATOCRIT 38.8 % (42.0-52.0); HEMOGLOBIN 13.6 g/dl (13.5-17.5); MEAN CORPUSCULAR HEMOGLOBIN 32.5 pg (27.0-33.0); MEAN CORPUSCULAR HGB CONC 35.1 g/dl (32.0-36.5); MEAN CORPUSCULAR VOLUME 92.6 fl (80.0-96.0); PLATELET COUNT, AUTOMATED 257 10^3/uL (150-450); RED BLOOD COUNT 4.19 10^6/uL (4.30-6.10); RED CELL DISTRIBUTION WIDTH 13.1 % (11.5-14.5)
[2017-07-08 06:51] LABS: INR 1.09; PROTHROMBIN TIME 14.3 SECONDS (12.4-14.5)
[2017-07-08 07:13] LABS: ANION GAP 8 MEQ/L (8-16); BLOOD UREA NITROGEN 6 MG/DL (7-18); CALCIUM LEVEL 8.7 MG/DL (8.5-10.1); CARBON DIOXIDE LEVEL 29 MEQ/L (21-32); CHLORIDE LEVEL 98 MEQ/L (98-107); CREATININE FOR GFR 0.78 MG/DL (0.70-1.30); GLOMERULAR FILTRATION RATE > 60.0 (>56); GLUCOSE, FASTING 95 MG/DL (70-100); POTASSIUM SERUM 3.8 MEQ/L (3.5-5.1); SODIUM LEVEL 135 MEQ/L (136-145)
[2017-07-08] MEDS: MORPHINE 15 MG SA TAB PO ×2 (09:39→21:25)
[2017-07-08] MEDS: LACTOBACILLUS ACIDOPHILUS CAP (BACID) PO ×2 (09:40→21:24)
[2017-07-08] MEDS: OMEPRAZOLE 20 MG CAP PO (09:40)
[2017-07-08] MEDS: SENOKOT S TAB PO ×2 (09:41→21:24)
[2017-07-08] MEDS: PRAVASTATIN 20 MG TAB PO (09:41)
[2017-07-08] MEDS: MOM 30ML SUSPENSION UDC PO (09:42)
[2017-07-08] MEDS: METOPROLOL SUCC *XL* 25MG TAB (TopROL *XL*) PO (09:42)
[2017-07-08] MEDS: MIRALAX *UNIT DOSE* 17GM PACKET PO (09:42)
[2017-07-08] MEDS: DAPTOmycin 1,000 MG in NS 50 ML IV (14:10)
[2017-07-08] MEDS: WARFARIN SOD 5 MG TAB PO (17:15)
[2017-07-08] MEDS: ALBUTEROL 90 MCG/ACT 8GM HFA INHALER INH (20:19)
[2017-07-09] MEDS: PERCOCET 5MG/325MG TAB PO ×2 (02:53→15:29)
[2017-07-09] MEDS: ALBUTEROL 90 MCG/ACT 8GM HFA INHALER INH (04:20)
[2017-07-09] MEDS: SODIUM CHLORIDE 0.9% INJ 10 ML SYR IV ×2 (06:00→10:10)
[2017-07-09 06:20] LABS: HEMATOCRIT 38.5 % (42.0-52.0); HEMOGLOBIN 13.3 g/dl (13.5-17.5); MEAN CORPUSCULAR HEMOGLOBIN 32.2 pg (27.0-33.0); MEAN CORPUSCULAR HGB CONC 34.5 g/dl (32.0-36.5); MEAN CORPUSCULAR VOLUME 93.2 fl (80.0-96.0); PLATELET COUNT, AUTOMATED 287 10^3/uL (150-450); RED BLOOD COUNT 4.13 10^6/uL (4.30-6.10); RED CELL DISTRIBUTION WIDTH 13.1 % (11.5-14.5)
[2017-07-09 06:29] LABS: INR 1.56; PROTHROMBIN TIME 19.1 SECONDS (12.4-14.5)
[2017-07-09 06:48] LABS: ANION GAP 6 MEQ/L (8-16); BLOOD UREA NITROGEN 9 MG/DL (7-18); CALCIUM LEVEL 8.4 MG/DL (8.5-10.1); CARBON DIOXIDE LEVEL 30 MEQ/L (21-32); CHLORIDE LEVEL 99 MEQ/L (98-107); CREATININE FOR GFR 0.83 MG/DL (0.70-1.30); GLOMERULAR FILTRATION RATE > 60.0 (>56); GLUCOSE, FASTING 101 MG/DL (70-100); POTASSIUM SERUM 3.9 MEQ/L (3.5-5.1); SODIUM LEVEL 135 MEQ/L (136-145)
[2017-07-09] MEDS: MOM 30ML SUSPENSION UDC PO (09:32)
[2017-07-09] MEDS: MIRALAX *UNIT DOSE* 17GM PACKET PO (09:32)
[2017-07-09] MEDS: OMEPRAZOLE 20 MG CAP PO (09:34)
[2017-07-09] MEDS: LACTOBACILLUS ACIDOPHILUS CAP (BACID) PO (09:35)
[2017-07-09] MEDS: SENOKOT S TAB PO (09:35)
[2017-07-09] MEDS: METOPROLOL SUCC *XL* 25MG TAB (TopROL *XL*) PO (09:36)
[2017-07-09] MEDS: PRAVASTATIN 20 MG TAB PO (09:36)
[2017-07-09] MEDS: DAPTOmycin 1,000 MG in NS 50 ML IV (09:38)
[2017-07-09] MEDS: MORPHINE 15 MG SA TAB PO (09:38)
== END 2017-07-09 16:30 | disposition home or self-care (01) | DRG 302 ==
LOC: M MS5PR 14:48
PROC: 0SPW0JZ Removal of Synthetic Substitute from Left Knee Joint, Tibial Surface, Open Approach (ICD-10-PCS; principal; 2017-07-06 15:29)
PROC: 0SRW0J9 Replacement of Left Knee Joint, Tibial Surface with Synthetic Substitute, Cemented, Open Approach (ICD-10-PCS; 2017-07-06 15:29)
PROC: 3E0U029 Introduction of Other Anti-infective into Joints, Open Approach (ICD-10-PCS; 2017-07-06 15:29)
PROC: 30233N1 Transfusion of Nonautologous Red Blood Cells into Peripheral Vein, Percutaneous Approach (ICD-10-PCS; 2017-07-06 15:29)
DX: T84.54XA Infection and inflammatory reaction due to internal left knee prosthesis, initial encounter (principal); I10 Essential (primary) hypertension; E78.00 Pure hypercholesterolemia, unspecified; F41.9 Anxiety disorder, unspecified; E78.5 Hyperlipidemia, unspecified; K21.9 Gastro-esophageal reflux disease without esophagitis; J45.909 Unspecified asthma, uncomplicated; Z79.899 Other long term (current) drug therapy; Z88.1 Allergy status to other antibiotic agents; Z96.653 Presence of artificial knee joint, bilateral; B95.61 Methicillin susceptible Staphylococcus aureus infection as the cause of diseases classified elsewhere; Y82.9 Unspecified medical devices associated with adverse incidents

== ENCOUNTER → 2017-07-05 | Outpatient (REF) | payer OTHER ==
[2017-07-05 14:05] LABS: CRYSTALS, BODY FLUID NONE SEEN (NONE SEEN); SOURCE, BODY FLUID CRYSTALS RT KNEE
[2017-07-05 14:27] LABS: APPEARANCE, BODY FLUID TURBID (CLEAR); SOURCE, BODY FLUID RT KNEE; SYNOVIAL FLUID COLOR AMBER (YELLOW)
[2017-07-05 14:29] LABS: BODY FLUID RHEUMATOID SCREEN NEGATIVE (NEGATIVE); RBC BODY FLUID 98 10^3/uL (<2); WBC BODY FLUID 179400 /uL (0-10)
[2017-07-05 14:30] LABS: BF DIFF IF INDICATED? YES (NO); BF MONONUCLEAR CELL % 13.8 % (0-0); BF POLYMORPHONUCLEAR CELL % 86.2 % (0-0)
[2017-07-05 14:31] LABS: MUCIN CLOT TEST 4+ (4+); SOURCE, BODY FLUID GLUCOSE RT KNEE
== END ==
LOC: M LAB REF 13:24
DX: Z96.651 Presence of right artificial knee joint (principal)

== ENCOUNTER → 2017-07-12 | Outpatient (REF) | payer OTHER ==
[2017-07-12 11:42] LABS: BASO % 0.7 % (0.0-1.0); EOS # 0.3 10^3/uL (0.0-0.50); EOS % 5.1 % (0.0-3.0); HEMATOCRIT 39.9 % (42.0-52.0); HEMOGLOBIN 13.6 g/dl (13.5-17.5); MEAN CORPUSCULAR HEMOGLOBIN 32.4 pg (27.0-33.0); MEAN CORPUSCULAR HGB CONC 34.1 g/dl (32.0-36.5); MONO # 0.5 10^3/uL (0.0-0.8); MONO % 9.1 % (0.0-5.0); NEUTROPHILS # 4.1 10^3/uL (1.8-7.7); NEUTROPHILS % 68.1 % (36.0-66.0); PLATELET COUNT, AUTOMATED 379 10^3/uL (150-450); RED CELL DISTRIBUTION WIDTH 13.1 % (11.5-14.5); WHITE BLOOD COUNT 5.9 10^3/uL (4.0-10.0)
[2017-07-12 11:52] LABS: ANION GAP 7 MEQ/L (8-16); BLOOD UREA NITROGEN 12 MG/DL (7-18); C REACTIVE PROTEIN QUANTITATIV 4.77 MG/DL (0.00-0.30); CALCIUM LEVEL 8.6 MG/DL (8.5-10.1); CARBON DIOXIDE LEVEL 29 MEQ/L (21-32); CHLORIDE LEVEL 102 MEQ/L (98-107); CPK CREATINE PHOSPHOKINASE 96 U/L (39-308); CREATININE FOR GFR 0.81 MG/DL (0.70-1.30); GLOMERULAR FILTRATION RATE > 60.0 (>56); GLUCOSE, FASTING 128 MG/DL (70-100); POTASSIUM SERUM 4.1 MEQ/L (3.5-5.1); SODIUM LEVEL 138 MEQ/L (136-145)
== END ==
LOC: M LAB REF 11:22
DX: T84.54XA Infection and inflammatory reaction due to internal left knee prosthesis, initial encounter (principal); B95.61 Methicillin susceptible Staphylococcus aureus infection as the cause of diseases classified elsewhere
CPT/HCPCS: 82550

== ENCOUNTER → 2017-07-12 | Outpatient (REF) | payer OTHER ==
[2017-07-12 11:53] LABS: INR 2.05; PROTHROMBIN TIME 23.8 SECONDS (12.4-14.5)
== END ==
LOC: M LAB REF 11:23
DX: Z51.81 Encounter for therapeutic drug level monitoring (principal); Z79.01 Long term (current) use of anticoagulants
CPT/HCPCS: 85610

== ENCOUNTER → 2017-07-19 | Outpatient (REF) | payer OTHER ==
[2017-07-19 12:41] LABS: ANION GAP 9 MEQ/L (8-16); BLOOD UREA NITROGEN 11 MG/DL (7-18); C REACTIVE PROTEIN QUANTITATIV 1.13 MG/DL (0.00-0.30); CALCIUM LEVEL 8.7 MG/DL (8.5-10.1); CARBON DIOXIDE LEVEL 26 MEQ/L (21-32); CHLORIDE LEVEL 102 MEQ/L (98-107); CPK CREATINE PHOSPHOKINASE 83 U/L (39-308); GLOMERULAR FILTRATION RATE > 60.0 (>56); GLUCOSE, FASTING 139 MG/DL (70-100); POTASSIUM SERUM 4.2 MEQ/L (3.5-5.1); SODIUM LEVEL 137 MEQ/L (136-145)
[2017-07-19 12:52] LABS: BASO # 0.1 10^3/uL (0.0-0.2); BASO % 1.4 % (0.0-1.0); EOS # 0.3 10^3/uL (0.0-0.50); EOS % 4.3 % (0.0-3.0); HEMATOCRIT 41.5 % (42.0-52.0); HEMOGLOBIN 14.2 g/dl (13.5-17.5); IMMATURE GRANULOCYTE % 0.5 % (0-3.0); LYMPH # 1.1 10^3/uL (1.5-4.5); LYMPH % 17.5 % (24.0-44.0); MEAN CORPUSCULAR HEMOGLOBIN 32.2 pg (27.0-33.0); MEAN CORPUSCULAR HGB CONC 34.2 g/dl (32.0-36.5); MEAN CORPUSCULAR VOLUME 94.1 fl (80.0-96.0); MONO # 0.4 10^3/uL (0.0-0.8); MONO % 5.5 % (0.0-5.0); NEUTROPHILS # 4.6 10^3/uL (1.8-7.7); NEUTROPHILS % 70.8 % (36.0-66.0); PLATELET COUNT, AUTOMATED 524 10^3/uL (150-450); RED BLOOD COUNT 4.41 10^6/uL (4.30-6.10); RED CELL DISTRIBUTION WIDTH 12.7 % (11.5-14.5); WHITE BLOOD COUNT 6.5 10^3/uL (4.0-10.0)
== END ==
LOC: M LAB REF 11:40
DX: T84.54XA Infection and inflammatory reaction due to internal left knee prosthesis, initial encounter (principal); B95.61 Methicillin susceptible Staphylococcus aureus infection as the cause of diseases classified elsewhere; Y79.2 Prosthetic and other implants, materials and accessory orthopedic devices associated with adverse incidents
CPT/HCPCS: 82550

== ENCOUNTER → 2017-07-19 | Outpatient (REF) | payer OTHER ==
[2017-07-19 12:45] LABS: INR 1.24; PROTHROMBIN TIME 15.8 SECONDS (12.4-14.5)
== END ==
LOC: M SHH 11:43
DX: Z51.81 Encounter for therapeutic drug level monitoring (principal); Z79.01 Long term (current) use of anticoagulants
CPT/HCPCS: 85610

== ENCOUNTER → 2017-07-27 | Outpatient (REF) | payer OTHER ==
[2017-07-27 10:34] LABS: BASO # 0.1 10^3/uL (0.0-0.2); BASO % 0.8 % (0.0-1.0); EOS # 0.6 10^3/uL (0.0-0.50); EOS % 8.3 % (0.0-3.0); HEMATOCRIT 39.7 % (42.0-52.0); HEMOGLOBIN 13.4 g/dl (13.5-17.5); IMMATURE GRANULOCYTE % 0.4 % (0-3.0); LYMPH # 0.9 10^3/uL (1.5-4.5); LYMPH % 11.6 % (24.0-44.0); MEAN CORPUSCULAR HEMOGLOBIN 31.5 pg (27.0-33.0); MEAN CORPUSCULAR HGB CONC 33.8 g/dl (32.0-36.5); MEAN CORPUSCULAR VOLUME 93.2 fl (80.0-96.0); MONO # 0.5 10^3/uL (0.0-0.8); MONO % 6.2 % (0.0-5.0); NEUTROPHILS # 5.5 10^3/uL (1.8-7.7); NEUTROPHILS % 72.7 % (36.0-66.0); PLATELET COUNT, AUTOMATED 283 10^3/uL (150-450); RED BLOOD COUNT 4.26 10^6/uL (4.30-6.10); RED CELL DISTRIBUTION WIDTH 12.8 % (11.5-14.5); WHITE BLOOD COUNT 7.6 10^3/uL (4.0-10.0)
[2017-07-27 10:54] LABS: ANION GAP 8 MEQ/L (8-16); BLOOD UREA NITROGEN 7 MG/DL (7-18); CALCIUM LEVEL 8.5 MG/DL (8.5-10.1); CARBON DIOXIDE LEVEL 26 MEQ/L (21-32); CHLORIDE LEVEL 103 MEQ/L (98-107); CPK CREATINE PHOSPHOKINASE 71 U/L (39-308); CREATININE FOR GFR 0.89 MG/DL (0.70-1.30); GLOMERULAR FILTRATION RATE > 60.0 (>56); GLUCOSE, FASTING 143 MG/DL (70-100); POTASSIUM SERUM 3.7 MEQ/L (3.5-5.1); SODIUM LEVEL 137 MEQ/L (136-145)
== END ==
LOC: M LAB REF 09:58
DX: B95.61 Methicillin susceptible Staphylococcus aureus infection as the cause of diseases classified elsewhere (principal)

== ENCOUNTER → 2017-07-27 | Outpatient (REF) | payer OTHER ==
[2017-07-27 10:56] LABS: INR 1.27; PROTHROMBIN TIME 16.2 SECONDS (12.4-14.5)
== END ==
LOC: M LAB REF 10:00
DX: Z79.01 Long term (current) use of anticoagulants (principal)

== ENCOUNTER → 2017-07-29 | Outpatient (REF) | payer OTHER ==
[2017-07-29 12:38] LABS: BASO # 0.1 10^3/uL (0.0-0.2); BASO % 1.1 % (0.0-1.0); EOS # 0.5 10^3/uL (0.0-0.50); EOS % 6.1 % (0.0-3.0); HEMATOCRIT 43.9 % (42.0-52.0); HEMOGLOBIN 14.8 g/dl (13.5-17.5); IMMATURE GRANULOCYTE % 0.5 % (0-3.0); LYMPH # 1.3 10^3/uL (1.5-4.5); LYMPH % 17.3 % (24.0-44.0); MEAN CORPUSCULAR HEMOGLOBIN 31.5 pg (27.0-33.0); MEAN CORPUSCULAR HGB CONC 33.7 g/dl (32.0-36.5); MEAN CORPUSCULAR VOLUME 93.4 fl (80.0-96.0); MONO # 0.6 10^3/uL (0.0-0.8); MONO % 8.1 % (0.0-5.0); NEUTROPHILS # 5.1 10^3/uL (1.8-7.7); NEUTROPHILS % 66.9 % (36.0-66.0); PLATELET COUNT, AUTOMATED 294 10^3/uL (150-450); RED CELL DISTRIBUTION WIDTH 12.5 % (11.5-14.5); WHITE BLOOD COUNT 7.6 10^3/uL (4.0-10.0)
[2017-07-29 12:53] LABS: ALBUMIN 3.4 GM/DL (3.2-5.2); ALBUMIN/GLOBULIN RATIO 0.83 (1.00-1.93); ALKALINE PHOSPHATASE 117 U/L (45-117); ALT/SGPT 175 U/L (12-78); ANION GAP 7 MEQ/L (8-16); AST/SGOT 63 U/L (7-37); BILIRUBIN,TOTAL 0.6 MG/DL (0.2-1.0); BLOOD UREA NITROGEN 7 MG/DL (7-18); C REACTIVE PROTEIN QUANTITATIV 6.51 MG/DL (0.00-0.30); CALCIUM LEVEL 8.9 MG/DL (8.5-10.1); CARBON DIOXIDE LEVEL 27 MEQ/L (21-32); CHLORIDE LEVEL 102 MEQ/L (98-107); CREATININE FOR GFR 0.93 MG/DL (0.70-1.30); GLOMERULAR FILTRATION RATE > 60.0 (>56); GLUCOSE, FASTING 122 MG/DL (70-100); POTASSIUM SERUM 4.3 MEQ/L (3.5-5.1); SODIUM LEVEL 136 MEQ/L (136-145); TOTAL PROTEIN 7.5 GM/DL (6.4-8.2)
[2017-07-29 13:47] LABS: ERYTHROCYTE SEDIMENTATION RATE 69 mm/hr (0-20)
== END ==
LOC: M SFHCPLAZ 07:52
DX: A49.01 Methicillin susceptible Staphylococcus aureus infection, unspecified site (principal); Z96.652 Presence of left artificial knee joint
CPT/HCPCS: 80053

== ENCOUNTER → 2017-08-03 | Outpatient (REF) | payer OTHER ==
[2017-08-03 09:46] LABS: BASO # 0.1 10^3/uL (0.0-0.2); BASO % 1.2 % (0.0-1.0); EOS # 0.3 10^3/uL (0.0-0.50); EOS % 6.6 % (0.0-3.0); HEMATOCRIT 40.4 % (42.0-52.0); HEMOGLOBIN 13.9 g/dl (13.5-17.5); IMMATURE GRANULOCYTE % 0.9 % (0-3.0); LYMPH # 1.1 10^3/uL (1.5-4.5); LYMPH % 26.4 % (24.0-44.0); MEAN CORPUSCULAR HEMOGLOBIN 31.4 pg (27.0-33.0); MEAN CORPUSCULAR HGB CONC 34.4 g/dl (32.0-36.5); MEAN CORPUSCULAR VOLUME 91.2 fl (80.0-96.0); MONO # 0.4 10^3/uL (0.0-0.8); MONO % 9.9 % (0.0-5.0); NEUTROPHILS # 2.3 10^3/uL (1.8-7.7); PLATELET COUNT, AUTOMATED 231 10^3/uL (150-450); RED BLOOD COUNT 4.43 10^6/uL (4.30-6.10); RED CELL DISTRIBUTION WIDTH 12.5 % (11.5-14.5); WHITE BLOOD COUNT 4.3 10^3/uL (4.0-10.0)
[2017-08-03 09:56] LABS: INR 1.25
[2017-08-03 10:09] LABS: ALBUMIN 3.2 GM/DL (3.2-5.2); ALBUMIN/GLOBULIN RATIO 0.86 (1.00-1.93); ALKALINE PHOSPHATASE 94 U/L (45-117); ALT/SGPT 282 U/L (12-78); ANION GAP 7 MEQ/L (8-16); AST/SGOT 102 U/L (7-37); BILIRUBIN,TOTAL 0.3 MG/DL (0.2-1.0); BLOOD UREA NITROGEN 9 MG/DL (7-18); C REACTIVE PROTEIN QUANTITATIV 0.68 MG/DL (0.00-0.30); CALCIUM LEVEL 8.5 MG/DL (8.5-10.1); CARBON DIOXIDE LEVEL 26 MEQ/L (21-32); CHLORIDE LEVEL 103 MEQ/L (98-107); GLOMERULAR FILTRATION RATE > 60.0 (>56); GLUCOSE, FASTING 80 MG/DL (70-100); POTASSIUM SERUM 4.5 MEQ/L (3.5-5.1); SODIUM LEVEL 136 MEQ/L (136-145); TOTAL PROTEIN 6.9 GM/DL (6.4-8.2); VANCOMYCIN LEVEL TROUGH 8.1 UG/ML (10.0-20.0)
[2017-08-03 10:21] LABS: ERYTHROCYTE SEDIMENTATION RATE 58 mm/hr (0-20)
== END ==
LOC: M SHH 09:18
DX: Z79.01 Long term (current) use of anticoagulants (principal)

== ENCOUNTER → 2017-08-10 | Outpatient (REF) | payer OTHER ==
[2017-08-10 09:24] LABS: BASO # 0.1 10^3/uL (0.0-0.2); BASO % 1.1 % (0.0-1.0); EOS # 0.2 10^3/uL (0.0-0.50); EOS % 4.6 % (0.0-3.0); HEMATOCRIT 41.6 % (42.0-52.0); HEMOGLOBIN 14.4 g/dl (13.5-17.5); IMMATURE GRANULOCYTE % 0.4 % (0-3.0); LYMPH # 1.4 10^3/uL (1.5-4.5); LYMPH % 30.3 % (24.0-44.0); MEAN CORPUSCULAR HEMOGLOBIN 31.4 pg (27.0-33.0); MEAN CORPUSCULAR HGB CONC 34.6 g/dl (32.0-36.5); MEAN CORPUSCULAR VOLUME 90.8 fl (80.0-96.0); MONO # 0.4 10^3/uL (0.0-0.8); MONO % 9.2 % (0.0-5.0); NEUTROPHILS # 2.5 10^3/uL (1.8-7.7); NEUTROPHILS % 54.4 % (36.0-66.0); PLATELET COUNT, AUTOMATED 210 10^3/uL (150-450); RED BLOOD COUNT 4.58 10^6/uL (4.30-6.10); RED CELL DISTRIBUTION WIDTH 13.3 % (11.5-14.5); WHITE BLOOD COUNT 4.6 10^3/uL (4.0-10.0)
[2017-08-10 09:42] LABS: ALBUMIN 3.2 GM/DL (3.2-5.2); ALBUMIN/GLOBULIN RATIO 0.86 (1.00-1.93); ALKALINE PHOSPHATASE 78 U/L (45-117); ALT/SGPT 225 U/L (12-78); ANION GAP 6 MEQ/L (8-16); AST/SGOT 61 U/L (7-37); BILIRUBIN,TOTAL 0.5 MG/DL (0.2-1.0); BLOOD UREA NITROGEN 9 MG/DL (7-18); C REACTIVE PROTEIN QUANTITATIV < 0.30 MG/DL (0.00-0.30); CALCIUM LEVEL 8.5 MG/DL (8.5-10.1); CARBON DIOXIDE LEVEL 27 MEQ/L (21-32); CHLORIDE LEVEL 106 MEQ/L (98-107); CREATININE FOR GFR 0.85 MG/DL (0.70-1.30); GLOMERULAR FILTRATION RATE > 60.0 (>56); GLUCOSE, FASTING 90 MG/DL (70-100); POTASSIUM SERUM 4.2 MEQ/L (3.5-5.1); SODIUM LEVEL 139 MEQ/L (136-145); TOTAL PROTEIN 6.9 GM/DL (6.4-8.2); VANCOMYCIN LEVEL TROUGH 9.5 UG/ML (10.0-20.0)
[2017-08-10 10:40] LABS: ERYTHROCYTE SEDIMENTATION RATE 24 mm/hr (0-20)
== END ==
LOC: M SHH 09:09
DX: T84.54XA Infection and inflammatory reaction due to internal left knee prosthesis, initial encounter (principal); Y82.8 Other medical devices associated with adverse incidents; B95.61 Methicillin susceptible Staphylococcus aureus infection as the cause of diseases classified elsewhere

== ENCOUNTER → 2017-08-30 | Outpatient (REF) | payer OTHER ==
[2017-08-30 11:02] LABS: BASO % 0.8 % (0.0-1.0); EOS # 0.1 10^3/uL (0.0-0.50); EOS % 2.1 % (0.0-3.0); HEMOGLOBIN 14.8 g/dl (13.5-17.5); IMMATURE GRANULOCYTE % 0.2 % (0-3.0); LYMPH # 2.2 10^3/uL (1.5-4.5); LYMPH % 45.1 % (24.0-44.0); MEAN CORPUSCULAR HEMOGLOBIN 31.3 pg (27.0-33.0); MEAN CORPUSCULAR HGB CONC 34.4 g/dl (32.0-36.5); MEAN CORPUSCULAR VOLUME 90.9 fl (80.0-96.0); MONO # 0.3 10^3/uL (0.0-0.8); MONO % 7.1 % (0.0-5.0); NEUTROPHILS # 2.1 10^3/uL (1.8-7.7); NEUTROPHILS % 44.7 % (36.0-66.0); PLATELET COUNT, AUTOMATED 225 10^3/uL (150-450); RED BLOOD COUNT 4.73 10^6/uL (4.30-6.10); RED CELL DISTRIBUTION WIDTH 13.8 % (11.5-14.5); WHITE BLOOD COUNT 4.8 10^3/uL (4.0-10.0)
[2017-08-30 11:14] LABS: ANION GAP 9 MEQ/L (8-16); BLOOD UREA NITROGEN 7 MG/DL (7-18); C REACTIVE PROTEIN QUANTITATIV < 0.30 MG/DL (0.00-0.30); CALCIUM LEVEL 8.5 MG/DL (8.5-10.1); CARBON DIOXIDE LEVEL 27 MEQ/L (21-32); CHLORIDE LEVEL 105 MEQ/L (98-107); CREATININE FOR GFR 1.09 MG/DL (0.70-1.30); GLOMERULAR FILTRATION RATE > 60.0 (>56); GLUCOSE, FASTING 120 MG/DL (70-100); POTASSIUM SERUM 3.7 MEQ/L (3.5-5.1); SODIUM LEVEL 141 MEQ/L (136-145)
[2017-08-30 11:37] LABS: ERYTHROCYTE SEDIMENTATION RATE 12 mm/hr (0-20)
== END ==
LOC: M SFHCPLAZ 07:39 → M SFHCCLAY 07:43
DX: T84.54XD Infection and inflammatory reaction due to internal left knee prosthesis, subsequent encounter (principal)
CPT/HCPCS: 80048

== ENCOUNTER → 2017-10-01 | Outpatient (REF) | payer OTHER ==
[2017-10-01 11:35] LABS: BASO % 0.6 % (0.0-1.0); EOS # 0.2 10^3/uL (0.0-0.50); EOS % 3.2 % (0.0-3.0); HEMATOCRIT 46.3 % (42.0-52.0); HEMOGLOBIN 15.8 g/dl (13.5-17.5); IMMATURE GRANULOCYTE % 0.6 % (0-3.0); LYMPH % 41.7 % (24.0-44.0); MEAN CORPUSCULAR HEMOGLOBIN 31.7 pg (27.0-33.0); MEAN CORPUSCULAR HGB CONC 34.1 g/dl (32.0-36.5); MONO # 0.4 10^3/uL (0.0-0.8); MONO % 8.7 % (0.0-5.0); NEUTROPHILS # 2.1 10^3/uL (1.8-7.7); NEUTROPHILS % 45.2 % (36.0-66.0); PLATELET COUNT, AUTOMATED 224 10^3/uL (150-450); RED BLOOD COUNT 4.98 10^6/uL (4.30-6.10); WHITE BLOOD COUNT 4.7 10^3/uL (4.0-10.0)
[2017-10-01 11:55] LABS: ALBUMIN 3.9 GM/DL (3.2-5.2); ALBUMIN/GLOBULIN RATIO 1.05 (1.00-1.93); ALKALINE PHOSPHATASE 97 U/L (45-117); ALT/SGPT 42 U/L (12-78); ANION GAP 8 MEQ/L (8-16); AST/SGOT 31 U/L (7-37); BILIRUBIN,TOTAL 0.7 MG/DL (0.2-1.0); BLOOD UREA NITROGEN 8 MG/DL (7-18); C REACTIVE PROTEIN QUANTITATIV 0.55 MG/DL (0.00-0.30); CALCIUM LEVEL 8.8 MG/DL (8.5-10.1); CARBON DIOXIDE LEVEL 27 MEQ/L (21-32); CHLORIDE LEVEL 102 MEQ/L (98-107); CREATININE FOR GFR 1.04 MG/DL (0.70-1.30); GLOMERULAR FILTRATION RATE > 60.0 (>56); GLUCOSE, FASTING 82 MG/DL (70-100); POTASSIUM SERUM 4.5 MEQ/L (3.5-5.1); SODIUM LEVEL 137 MEQ/L (136-145); TOTAL PROTEIN 7.6 GM/DL (6.4-8.2)
[2017-10-01 11:58] LABS: ERYTHROCYTE SEDIMENTATION RATE 7 mm/hr (0-20)
== END ==
LOC: M SFHCPLAZ 08:54
DX: T84.54XD Infection and inflammatory reaction due to internal left knee prosthesis, subsequent encounter (principal); W18.30XD Fall on same level, unspecified, subsequent encounter; Y92.009 Unspecified place in unspecified non-institutional (private) residence as the place of occurrence of the external cause

== ENCOUNTER → 2017-10-18 | Outpatient (REF) | payer OTHER ==
[2017-10-18 17:18] LABS: C REACTIVE PROTEIN QUANTITATIV < 0.30 MG/DL (0.00-0.30)
[2017-10-18 17:20] LABS: BASO % 0.9 % (0.0-1.0); EOS # 0.2 10^3/uL (0.0-0.50); EOS % 4.9 % (0.0-3.0); HEMATOCRIT 45.3 % (42.0-52.0); HEMOGLOBIN 15.3 g/dl (13.5-17.5); IMMATURE GRANULOCYTE % 0.2 % (0-3.0); LYMPH # 1.5 10^3/uL (1.5-4.5); LYMPH % 33.8 % (24.0-44.0); MEAN CORPUSCULAR HEMOGLOBIN 31.4 pg (27.0-33.0); MEAN CORPUSCULAR HGB CONC 33.8 g/dl (32.0-36.5); MEAN CORPUSCULAR VOLUME 92.8 fl (80.0-96.0); MONO # 0.5 10^3/uL (0.0-0.8); MONO % 10.5 % (0.0-5.0); NEUTROPHILS # 2.2 10^3/uL (1.8-7.7); NEUTROPHILS % 49.7 % (36.0-66.0); PLATELET COUNT, AUTOMATED 248 10^3/uL (150-450); RED BLOOD COUNT 4.88 10^6/uL (4.30-6.10); RED CELL DISTRIBUTION WIDTH 15.6 % (11.5-14.5); WHITE BLOOD COUNT 4.5 10^3/uL (4.0-10.0)
[2017-10-18 19:03] LABS: ERYTHROCYTE SEDIMENTATION RATE 6 mm/hr (0-20)
== END ==
LOC: M SFHCPLAZ 11:01
DX: T84.54XD Infection and inflammatory reaction due to internal left knee prosthesis, subsequent encounter (principal)
CPT/HCPCS: 86140

== ENCOUNTER → 2017-11-24 | Outpatient (REF) | payer OTHER ==
[2017-11-24 17:25] LABS: BASO % 0.5 % (0.0-1.0); EOS # 0.1 10^3/uL (0.0-0.50); EOS % 3.3 % (0.0-3.0); HEMATOCRIT 47.1 % (42.0-52.0); HEMOGLOBIN 15.8 g/dl (13.5-17.5); IMMATURE GRANULOCYTE % 0.5 % (0-3.0); LYMPH # 1.7 10^3/uL (1.5-4.5); LYMPH % 38.7 % (24.0-44.0); MEAN CORPUSCULAR HEMOGLOBIN 31.9 pg (27.0-33.0); MEAN CORPUSCULAR HGB CONC 33.5 g/dl (32.0-36.5); MONO # 0.5 10^3/uL (0.0-0.8); MONO % 10.5 % (0.0-5.0); NEUTROPHILS % 46.5 % (36.0-66.0); PLATELET COUNT, AUTOMATED 235 10^3/uL (150-450); RED BLOOD COUNT 4.96 10^6/uL (4.30-6.10); RED CELL DISTRIBUTION WIDTH 14.5 % (11.5-14.5); WHITE BLOOD COUNT 4.3 10^3/uL (4.0-10.0)
[2017-11-24 17:46] LABS: C REACTIVE PROTEIN QUANTITATIV < 0.30 MG/DL (0.00-0.30)
[2017-11-24 18:38] LABS: ERYTHROCYTE SEDIMENTATION RATE 4 mm/hr (0-20)
== END ==
LOC: M SFHCCLAY 09:46
DX: T84.54XD Infection and inflammatory reaction due to internal left knee prosthesis, subsequent encounter (principal); Y82.8 Other medical devices associated with adverse incidents

== ENCOUNTER → 2017-12-29 | Outpatient (REF) | payer OTHER ==
[2017-12-29 17:52] LABS: BASO % 0.7 % (0.0-1.0); EOS # 0.2 10^3/uL (0.0-0.50); EOS % 4.6 % (0.0-3.0); HEMATOCRIT 44.8 % (42.0-52.0); IMMATURE GRANULOCYTE % 0.5 % (0-3.0); LYMPH # 1.4 10^3/uL (1.5-4.5); MEAN CORPUSCULAR HEMOGLOBIN 32.8 pg (27.0-33.0); MEAN CORPUSCULAR HGB CONC 33.5 g/dl (32.0-36.5); MONO # 0.5 10^3/uL (0.0-0.8); MONO % 11.7 % (0.0-5.0); NEUTROPHILS % 47.5 % (36.0-66.0); PLATELET COUNT, AUTOMATED 226 10^3/uL (150-450); RED BLOOD COUNT 4.57 10^6/uL (4.30-6.10); RED CELL DISTRIBUTION WIDTH 13.6 % (11.5-14.5); WHITE BLOOD COUNT 4.1 10^3/uL (4.0-10.0)
[2017-12-29 18:01] LABS: ALBUMIN 3.7 GM/DL (3.2-5.2); ALBUMIN/GLOBULIN RATIO 1.09 (1.00-1.93); ALKALINE PHOSPHATASE 75 U/L (45-117); ALT/SGPT 48 U/L (12-78); ANION GAP 7 MEQ/L (8-16); AST/SGOT 30 U/L (7-37); BILIRUBIN,TOTAL 0.6 MG/DL (0.2-1.0); BLOOD UREA NITROGEN 11 MG/DL (7-18); C REACTIVE PROTEIN QUANTITATIV < 0.30 MG/DL (0.00-0.30); CALCIUM LEVEL 8.6 MG/DL (8.5-10.1); CARBON DIOXIDE LEVEL 29 MEQ/L (21-32); CHLORIDE LEVEL 102 MEQ/L (98-107); CREATININE FOR GFR 1.05 MG/DL (0.70-1.30); GLOMERULAR FILTRATION RATE > 60.0 (>56); GLUCOSE, FASTING 56 MG/DL (70-100); POTASSIUM SERUM 4.5 MEQ/L (3.5-5.1); SODIUM LEVEL 138 MEQ/L (136-145); TOTAL PROTEIN 7.1 GM/DL (6.4-8.2)
[2017-12-29 18:20] LABS: ERYTHROCYTE SEDIMENTATION RATE 5 mm/hr (0-20)
== END ==
LOC: M SFHCPLAZ 10:43
DX: T84.54XD Infection and inflammatory reaction due to internal left knee prosthesis, subsequent encounter (principal); Y83.1 Surgical operation with implant of artificial internal device as the cause of abnormal reaction of the patient, or of later complication, without mention of misadventure at the time of the procedure
CPT/HCPCS: 80053

== ENCOUNTER → 2018-02-16 | Outpatient (REF) | payer OTHER ==
[~2018-02-16] MED LIST changes: +AUGM875T28 PO; +CETI10TA PO; +COUM2.5T17 PO; +EFFE37.5 PO; -EFFE37.527 PO; +MEDR4PAK PO; +MORP-38 PO; +PERC5TAB12 PO; +RIFA300C3 PO; +TEST1INJ3 IM; +TOPR25TA13 PO; +XANA0.5T PO
[2018-02-16 17:04] LABS: BASO % 0.8 % (0.0-1.0); EOS # 0.2 10^3/uL (0.0-0.50); EOS % 3.6 % (0.0-3.0); HEMATOCRIT 45.7 % (42.0-52.0); HEMOGLOBIN 15.8 g/dl (13.5-17.5); LYMPH % 37.9 % (24.0-44.0); MEAN CORPUSCULAR HEMOGLOBIN 33.1 pg (27.0-33.0); MEAN CORPUSCULAR HGB CONC 34.6 g/dl (32.0-36.5); MEAN CORPUSCULAR VOLUME 95.8 fl (80.0-96.0); MONO # 0.4 10^3/uL (0.0-0.8); MONO % 8.2 % (0.0-5.0); NEUTROPHILS # 2.6 10^3/uL (1.8-7.7); NEUTROPHILS % 49.1 % (36.0-66.0); PLATELET COUNT, AUTOMATED 235 10^3/uL (150-450); RED BLOOD COUNT 4.77 10^6/uL (4.30-6.10); WHITE BLOOD COUNT 5.3 10^3/uL (4.0-10.0)
[2018-02-16 18:08] LABS: ERYTHROCYTE SEDIMENTATION RATE 4 mm/hr (0-20)
== END ==
LOC: M SFHCPLAZ 10:18 → M SFHCCLAY 10:19
PROVIDERS: ATTEND Internal Medicine Infectious Disease
DX: T84.54XD Infection and inflammatory reaction due to internal left knee prosthesis, subsequent encounter (principal); Y83.2 Surgical operation with anastomosis, bypass or graft as the cause of abnormal reaction of the patient, or of later complication, without mention of misadventure at the time of the procedure

== ENCOUNTER → 2018-09-06 | Outpatient (CLI) | payer OTHER ==
[~2018-09-06] MED LIST changes: -/WARF25TA PO; +COUM1TAB18 PO; +METO-1 PO; +OXYC1TAB23 PO; -PERCOCET PO; -TOPR25TA13 PO
--- NOTE | 2018-09-09 10:37 | SLEEPCENT ---
DATE OF PROCEDURE: 09/06/2018 ORDERED BY: Dr. Rojo Nocturnal polysomnography was performed for evaluation of sleep physiology in this patient with history of excessive somnolence and nonrestorative sleep. 8 hours and 1 minute of data were reviewed. There were 336 minutes of sleep identified. Sleep latency was prolonged at 68 minutes. Rapid eye movement (REM) latency was prolonged at 146 minutes. Sleep architecture showed fragmentation for sleep progression. There were 2 REM cycles noted. Overall sleep efficiency was 71.1%. The electrocardiogram showed sinus rhythm with an average heart rate of 56 beats per minute. Rate ranged 40-70 beats per minute. Electroencephalogram (EEG) showed normal waveforms for awake and sleep stages. There were 155 respiratory events identified of 10 seconds in duration or greater for an apnea-hypopnea index of 7.7. The events were primarily obstructive not exclusive to sleep stage nor body posture. Arousals from respiratory events occurred 11.1 times per hour and oxygen desaturations were seen into the 70s. Remaining measures of sleep physiology were normal. IMPRESSION: Obstructive sleep apnea syndrome (G47.33). Apnea-hypopnea index 7.7. RECOMMENDATIONS: The patient should be encouraged to return to sleep disorder center for pressure therapy. In the interim, alcohol and sedative avoidance should be practiced and caution exercised during the operation of motor vehicles. TEJASD
== END ==
LOC: M SLEEP 19:28
PROVIDERS: ATTEND Internal Medicine Pulmonary Disease
DX: G47.33 Obstructive sleep apnea (adult) (pediatric) (principal)

== ENCOUNTER → 2018-09-27 | Outpatient (CLI) | payer OTHER ==
--- NOTE | 2018-09-30 09:13 | SLEEPCENT ---
DATE OF PROCEDURE: 09/27/2018 ORDERED BY: Dr. Rojo Nocturnal polysomnography was performed for the titration of pressure therapy is patient with obstructive sleep apnea syndrome. Apnea-hypopnea index 27.7. For testing a Respirvzaar Karen View full-face mask of large size was used; 4 cm of water pressure were applied to the circuit and lights were extinguished. 6 hours and 53 minutes of data were reviewed. They were 211.5 minutes of sleep identified. Sleep latency was prolonged 41 minutes. Rapid eye movement (REM) latency was prolonged at 291 minutes. Sleep architecture improved late in the study. Overall sleep efficiency was reduced at 52.2% due to periods of wake after sleep onset. The patient's electrocardiogram showed a sinus rhythm with an average heart rate of 50 beats per minute. Electroencephalogram (EEG) showed some coarsening in background, no focal events, normal waveforms for awake and sleep. Respiratory events were fully palliated with CPAP at a pressure of +9 and remaining measures of sleep physiology were normal. IMPRESSION: Obstructive sleep apnea syndrome (G47.33). RECOMMENDATIONS: Nightly use of pressure therapy 9 cm of water.
== END ==
LOC: M SLEEP 20:20
PROVIDERS: ATTEND Internal Medicine Pulmonary Disease
DX: G47.33 Obstructive sleep apnea (adult) (pediatric) (principal)

== ENCOUNTER → 2020-01-31 | Outpatient (CLI) | payer OTHER ==
[~2020-01-31] MED LIST changes: -MORP-38 PO; +MORP-69 PO; +OMEP1CAP73 PO; +VENL37TA PO; +VENTAER INH
== END ==
LOC: M LABSMTC 11:13
PROVIDERS: ATTEND Anesthesiology
DX: Z01.812 Encounter for preprocedural laboratory examination (principal); Z20.828 Contact with and (suspected) exposure to other viral communicable diseases

== ENCOUNTER 2020-02-05 12:35 | Day surgery (SDC) | payer OTHER ==
[~2020-02-05] VITALS: Ht 185.4 cm; Wt 127.0 kg
[~2020-02-05 12:35] MED LIST changes: +NS 1,000 ML IV ONE
--- NOTE | 2020-02-05 15:04 | ROOR ---
Patient Name: Pernell Mota Procedure Date: 02/05/2020 2:43 PM Date of : 1960 Age: 59 Room: [facility] Gender: Male Note Status: Finalized Procedure: Total Colonoscopy to Cecum Indications: Colon cancer screening in patient at increased risk: Colorectal cancer in sister Providers: Adán Chaudhari MD Referring MD: ARESN UREÑA MD Requesting Provider: Medicines: Monitored Anesthesia Care Complications: No immediate complications. Procedure: Pre-Anesthesia Assessment: - The heart rate, respiratory rate, oxygen saturations, blood pressure, adequacy of pulmonary ventilation, and response to care were monitored throughout the procedure. The Colonoscope was introduced through the anus and advanced to the cecum, identified by appendiceal orifice and ileocecal valve. The colonoscopy was performed without difficulty. The patient tolerated the procedure well. The quality of the bowel preparation was excellent. Findings: The perianal and digital rectal examinations were normal. Non-bleeding internal hemorrhoids were found during retroflexion. The hemorrhoids were small and Grade I (internal hemorrhoids that do not prolapse). The exam was otherwise without abnormality on direct and retroflexion views. Impression: - Non-bleeding internal hemorrhoids. - The examination was otherwise normal on direct and retroflexion views. - No specimens collected. - The exam was otherwise normal to the cecum. Recommendation: - Patient has a contact number available for emergencies. The signs and symptoms of potential delayed complications were discussed with the patient. Return to normal activities tomorrow. Written discharge instructions were provided to the patient. - High fiber diet. - Discharge patient to home. - Continue present medications. - Repeat colonoscopy in 5 years for screening purposes. - Return to referring physician. - The findings and recommendations were discussed with the patient. Procedure Code(s): --- Professional --- G0105, Colorectal cancer screening; colonoscopy on individual at high risk Diagnosis Code(s): --- Professional --- Z80.0, Family history of malignant neoplasm of digestive organs K64.0, First degree hemorrhoids CPT copyright 2019 [employer]. All rights reserved. The codes documented in this report are preliminary and upon roll off driver review may be revised to meet current compliance requirements. Adán Chaudhari MD Adán Chaudhari MD 02/05/2020 3:04:12 PM Electronically signed by Adán Chaudhari MD Number of Addenda: 0 Note Initiated On: 02/05/2020 2:43 PM Estimated Blood Loss: Estimated blood loss: none.
[2020-02-05] MEDS ORDERED: propofoL 200 MG/20 ML VIAL As Ordered ONE (15:15)
[2020-02-05 15:30] VITALS: BP 123/85
== END 2020-02-05 15:40 | disposition home or self-care (01) ==
LOC: M OPP 12:35
PROVIDERS: ATTEND Internal Medicine Gastroenterology
DX: Z12.11 Encounter for screening for malignant neoplasm of colon (principal); Z80.0 Family history of malignant neoplasm of digestive organs; K64.0 First degree hemorrhoids; I10 Essential (primary) hypertension; Z79.899 Other long term (current) drug therapy; Z88.1 Allergy status to other antibiotic agents

== ENCOUNTER 2020-03-21 12:21 | Inpatient (IN) | payer OTHER ==
[~2020-03-21] VITALS: Ht 185.4 cm; Wt 124.5 kg
[~2020-03-21 12:21] MED LIST changes: -NS 1,000 ML IV ONE
--- OUTSIDE RECORDS SUMMARY | 2020-03-21 12:27 | CCD | Continuity of Care Document ---
Author Author [facility] Address [address] [place] [address] Phone Care Team Providers Care Physiognomist Name Role Phone LINDA UREÑA PCP Allergies, Adverse Reactions, Alerts No allergy information available. Medications No medication information available. Problems No problem information available. Procedures Procedure Date Performed Status CHEST 1 VIEW March 18, 2020 completed Relevant Diagnostic Tests and/or Laboratory Data Laboratory Results Test Date/Time Result Interpretation Reference Range Result Co mment Performing Site White Blood Count March 18, 2020 6:10am 4.2 4.0-10 .0 [facility], [address] [place] [address] Red Blood Count March 18, 2020 6:10am 5.21 4.50-6.0 0 [facility], [address] [place] [address] 41670 Hemoglobin March 18, 2020 6:10am 16.6 14.0-18.0 [facility], [address] [place] [address] Hematocrit March 18, 2020 6:10am 46.9 42.0-54.0 [facility], [address] [place] [address] Mean Corpuscular Volume March 18, 2020 6:10am 90.0 80-96 [facility], [address] [place] [address] Mean Corpuscular Hemoglobin March 18, 2020 6:10am 31.9 27.0-31.0 [facility], 4 [facility] [address] Mean Corpuscular Hgb Concent Diff March 18, 2020 6:10am 35.4 32.0-36.0 [facility], 4 [facility] [address] Red Cell Distribution Width March 18, 2020 6:10am 12.6 10.0-14.5 [facility], 4 [facility] [address] Platelet Count March 18, 2020 6:10am 161 172-450 [facility], [address] [place] [address] Mean Platelet Volume March 18, 2020 6:10am 10.0 9.0 -13.0 [facility], [address] [place] [address] Granulocytes % (Auto) March 18, 2020 6:10am 82.1 50 -80.0 [facility], [address] [place] [address] Immature Granulocytes % March 18, 2020 6:10am 0.5 0.0-0.2 [facility], [address] [place] [address] Lymphocytes % March 18, 2020 6:10am 10.5 25.0-50.0 [facility], 4 [facility] [address] Monocytes % March 18, 2020 6:10am 6.7 2.0-10.0 [facility], 4 [facility] [address] Eosinophils % March 18, 2020 6:10am 0.0 0-5.0 [facility], 4 [facility] [address] Basophils % March 18, 2020 6:10am 0.2 0.0-2.0 [facility], 4 [facility] [address] Granulocytes # March 18, 2020 6:10am 3.4 2.0-8.00 [facility], 4 [facility] [address] Immature Granulocytes # March 18, 2020 6:10am 0.0 0.0-0.2 [facility], [address] [place] [address] Lymphocytes # March 18, 2020 6:10am 0.4 1.0-5.0 [facility], 4 [facility] [address] Monocytes # March 18, 2020 6:10am 0.3 0.10-1.20 [facility], 4 [facility] [address] Eosinophils # March 18, 2020 6:10am 0.0 0.0-0.5 [facility], 4 [facility] [address] Basophils # March 18, 2020 6:10am 0.0 0.0-0.2 [facility], 4 [facility] [address] Erythrocyte Sedimentation Rate March 18, 2020 6:10am 40 0-20 [facility], 4 [facility] [address] Prothrombin Time March 18, 2020 6:10am 9.9 9.1-11. 6 [facility], 4 [facility] [address] INR International Normalized Ratio March 18, 2020 6:10am 0.95 0.87-1.06 [facility], 4 [facility] [address] Partial Thromboplastin Time - Zoey March 18, 2020 6:10am 27.5 21.2-27.3 [facility], 4 [facility] [address] Arterial Blood pH March 18, 2020 6:10am 7.39 7.31-7 .41 [facility], 4 [facility] [address] Venous Blood pCO2 at Patient Temp March 18, 2020 6:10am 46.8 41-51 [facility], 4 [facility] [address] Venous Blood pO2 at Patient Temp March 18, 2020 6:10am 29 35-42 [facility], 4 [facility] [address] Venous Bld O2 Saturation (Measured) March 18, 2020 6:10am 36.0 68-77 [facility], 4 [facility] [address] Venous Blood HCO3 March 18, 2020 6:10am 27.6 24.0-2 5.0 [facility], 4 [facility] [address] Venous Blood Base Excess March 18, 2020 6:10am 2.3 -3.0-3.0 [facility], 4 [facility] [address] Mixed Venous Blood Total CO2 March 18, 2020 6:10am 29.1 23.0-32.0 [facility], 4 [facility] [address] Glucose Level March 18, 2020 6:10am 97 74-106 [facility], 4 [facility] [address] Lactic Acid Level March 18, 2020 6:10am 1.3 0.4-2. 0 [facility], 4 [facility] [address] Blood Urea Nitrogen March 18, 2020 6:10am 15 7-18 [facility], 4 [facility] [address] Creatinine March 18, 2020 6:10am 1.10 0.7-1.3 [facility], 4 [facility] [address] Sodium Level March 18, 2020 6:10am 130 136-145 [facility], 4 [facility] [address] Potassium Level March 18, 2020 6:10am 4.0 3.5-5.1 [facility], 4 [facility] [address] Chloride Level March 18, 2020 6:10am 92 98-107 [facility], 4 [facility] [address] Carbon Dioxide Level March 18, 2020 6:10am 27 21- 32 [facility], 4 [facility] [address] Calcium Level March 18, 2020 6:10am 9.0 8.5-10.1 [facility], 4 [facility] [address] Anion Gap March 18, 2020 6:10am 11.0 5-12 [facility], 4 [facility] [address] Estimated GFR (MDRD) March 18, 2020 6:10am 69 GFR IS CALCULATED IN mL/min/1.73m2 NORMAL FUNCTION: >90MILDLY DECREASED: 60-89MILDY TO MODERATELY DECREASED: 45-59 MODERATELY TO SEVERELY DECREASED: 30-44SEVERELY DECREASED: 15-29RENAL FAILURE: <15 [facility], 4 [facility] [address] Aspartate Amino Transf (AST/SGOT) March 18, 2020 6:10am 48 15-37 [facility], 4 [facility] [address] Alanine Aminotransferase (ALT/SGPT) March 18, 2020 6:10am 62 12-78 [facility], 4 [facility] [address] Alkaline Phosphatase March 18, 2020 6:10am 65 46- 116 [facility], 4 [facility] [address] Total Bilirubin March 18, 2020 6:10am 0.4 0.2-1.0 [facility], 4 [facility] [address] Total Protein March 18, 2020 6:10am 8.8 6.4-8.2 [facility], 4 [facility] [address] Albumin March 18, 2020 6:10am 3.8 3.4-5.0 [facility], 4 [facility] [address] Troponin I March 18, 2020 6:10am < 0.017 0.0-0.056 [facility], 4 [facility] [address] C-Reactive Protein March 18, 2020 6:10am 37.0 0.0-3 .0 [facility], 4 [facility] [address] Ferritin March 18, 2020 6:10am 1240 26-388 [facility], 4 [facility] [address] Adenovirus (PCR) March 18, 2020 4:56am Not Detected Not [facility], 4 [facility] [address] Coronavirus Type 229E (PCR) March 18, 2020 4:56am Not Detected Not [facility], [address] [facility] [address] Coronavirus Type HKU1 (PCR) March 18, 2020 4:56am Not Detected Not [facility], [address] [facility] [address] Coronavirus Type NL63 (PCR) March 18, 2020 4:56am Not Detected Not [facility], 4 [facility] [address] Coronavirus Type OC43 (PCR) March 18, 2020 4:56am Not Detected Not [facility], [address] [facility] [address] Coronavirus (COVID-19)(PCR) March 18, 2020 4:56am DETECTED Not [facility], 4 [facility] [address] Human Metapneumovirus (PCR) March 18, 2020 4:56am Not Detected Not [facility], 4 [facility] [address] Rhinovirus (PCR) March 18, 2020 4:56am Not Detected Not [facility], 4 [facility] [address] Influenza Type A (RT-PCR) March 18, 2020 4:56am Not Detected Not [facility], 4 [facility] [address] Influenza Type B (RT-PCR) March 18, 2020 4:56am Not Detected Not [facility], 4 [facility] [address] Parainfluenza Type 1 (PCR) March 18, 2020 4:56am Not Detected Not [facility], 4 [facility] [address] Parainfluenza Type 2 (PCR) March 18, 2020 4:56am Not Detected Not [facility], 4 [facility] [address] Parainfluenza Type 3 (PCR) March 18, 2020 4:56am Not Detected Not [facility], 4 [facility] [address] Parainfluenza Type 4 (PCR) March 18, 2020 4:56am Not Detected Not [facility], 4 [facility] [address] Respiratory Syncytial Virus (PCR) March 18, 2020 4:56am Not Detec jamarcus Not [facility], 4 [facility] [address] Bordetella parapertussis DNA (PCR) March 18, 2020 4:56am Not Dete cted Not [facility], 4 [facility] [address] Bordetella pertussis DNA (PCR) March 18, 2020 4:56am Not Detected Not [facility], 4 [facility] [address] Chlamydia pneumoniae March 18, 2020 4:56am Not Detected Not [facility], 4 [facility] [address] Mycoplasma pneumoniae March 18, 2020 4:56am Not Detected Not The Above results have been determined by using the [employer] FilmArray system.FilmArray is an automated in vitro diagnostic system thatutilizes nested multiplex Polymerase Chain Reaction (PCR)and high-resolution melting analysis to detect and identifymultiple nucleic acid targets from clinical specimens. [facility], [address] [place] [address] Blood Culture (LAB) March 18, 2020 6:10am SENT TO [facility], [address] [place] [address] SARS-CoV-2 (PCR) February 24, 2020 7:05am Not Detected N ot Detected This nucleic acid amplification test was developed and itsperformance characteristics determined by [facility]. Nucleic acid amplification tests include PCRand TMA. This test has not been FDA cleared or approved.This test has been authorized by FDA under an Emergency UseAuthorization (EUA). This test is only authorized forthe duration of time the declaration that circumstancesexist justifying the authorization of the emergency use ofin vitro diagnostic tests for detection of SARS-CoV-2 virusand/or diagnosis of COVID-19 infection under qyzcake956(b)(1) of the Act, 21 U.S.C. 360bbb-3(b) (1), unless theauthorization is terminated or revoked sooner.When diagnostic testing is negative, the possibility of afalse negative result should be considered in the contextof a patient's recent exposures and the presence ofclinical signs and symptoms consistent with COVID-19. Anindividual without symptoms of COVID-19 and who is notshedding SARS-CoV-2 virus would expect to have a negative(not detected) r esult in this assay.Performed at: [id number], [place], [place] [id number] Director: Meena Mc PhD, Phone: [phone] [facility] Health Concerns No known health concerns documented Chief Complaint and Reason for Visit Reason for Visit FLU LIKE SYMPTOMS Encounters Encounter Location(s) Arrival/Admit Date Discharge/Depart Date Provider(s) Departed Emergency [facility] March 18, 2020 4:32am March 18, 2020 7:49am EVERT DOUGHERTY @ Departed Emergency [facility] March 16, 2020 1:40pm March 16, 2020 2:00pm GEORGE DE ANDA Registered Referral [facility] February 24, 2020 7:49am CHAIM RIOS Registered Physician/Provider Office Visit [facility] February 24, 2020 6:31am CHAIM RIOS Assessments No Assessments Information Available Functional Status No Functional Status information available Goals No Goals Information Available Immunizations No Immunization Information Available Mental Status No Mental Status Information Available Medical Equipment No Medical Equipment Information available Insurance Providers Guarantor ELVA DODD Address [address] [place] [address] Contact Info. Home Phone: Payer Policy Id Coverage Id Subscriber's Name Subscriber Id Effect jessica Date Expiration Date [facility] [id number] [employer] D[employer]D 2016 Social History Assigned Sex Male Vital Signs No vital signs result information available.
--- OUTSIDE RECORDS SUMMARY | 2020-03-21 12:27 | CCD | Continuity of Care Document ---
Author Author [facility] Address [address] [place] [address] Phone Care Team Providers Care Solar Installer Name Role Phone LINDA UREÑA PCP Allergies, Adverse Reactions, Alerts No allergy information available. Medications No medication information available. Problems No problem information available. Procedures No procedure information available. Relevant Diagnostic Tests and/or Laboratory Data Laboratory Results Test Date/Time Result Interpretation Reference Range Result Co mment Performing Site SARS-CoV-2 (PCR) February 24, 2020 7:05am Not [...] SARS-CoV-2 virusand/or diagnosis of COVID-19 infection under qtenopm453(b)(1) of the Act, 21 U.S.C. 360bbb-3(b) (1), [...] detected) r esult in this assay.Performed at: [email or web address] [employer] [facility], [place], [place] [id number] Director: Meena Mc PhD, Phone: [phone] [facility] Health Concerns No known health concerns documented Chief Complaint and Reason for Visit Reason for Visit CHEST PAIN,HEADACHES Encounters Encounter Location(s) Arrival/Admit Date Discharge/Depart Date Provider(s) Departed Emergency [facility] March 16, 2020 1:40pm March 16, 2020 2:00pm GEORGE DE ANDA Registered Referral [facility] February 24, 2020 7:49am CHAIM RIOS Registered Physician/Provider Office Visit [facility] February 24, 2020 6:31am CHAIM RIOS Assessments No Assessments Information Available Functional Status No Functional Status information available Goals No Goals Information Available Immunizations No Immunization Information Available Mental Status No Mental Status Information Available Medical Equipment No Medical Equipment Information available Insurance Providers Guarantor ELVA DODD Address [address] [place] [address] Contact Info. Home Phone: Payer Policy Id Coverage Id Subscriber's Name Subscriber Id Effect jessica Date Expiration Date R [id number] [employer] Social History Assigned Sex Male Vital Signs No vital signs result information available.
--- OUTSIDE RECORDS SUMMARY | 2020-03-21 12:28 | CCD | Continuity of Care Document ---
Author Author Pernell RUFFIN MD Organization Unknown Address [address] [place] [address] [place] [address] Phone [phone] Care Team Providers Care Horse Wrangler Name Role Phone Sumi Georges MD [facility] [phone] Timmy Coulter [employer] [facility] [phone] Problems Description No Information Available Social History Type Date Description Comments Sex Unknown ETOH Use Consumes 1 glass of wine per day Tobacco Use Start: Unknown Patient has never smoked Smoking Status Reviewed: 03/12/20 Patient has never smoked Allergies, Adverse Reactions, Alerts Active Allergies Reaction Severity Comments Date Kenalog rash 11/10/2011 Medications Active Medications SIG Qnty Indications Ordering Provide r Date Oseltamivir Phosphate 75mg Capsule s take one tab by mouth twice a day for 5 days 10caps J09.x9 Usama Pereira JR., M.D. 03/12/2020 Toprol XL 25mg Tablets ER 24HR qd Unknown Venlafaxine HCL 37.5mg Tablets qd Unknown Omeprazole 20mg Capsules DR q d Unknown Pravastatin Sodium 40mg Tablets qd Unknown Flonase 50mcg/Act Suspension 1 spray per nostril bid Unknown Zyrtec Allergy 10mg Capsules take one per day Unknown Zaditor 0.025% Solution prn Unknown Ventolin HFA 108(90Base) mcg/Act A erosol 1-2 puffs q4-6 hours prn shortness of breath 1units Unk nown Symbicort 80-4.5mcg/Act Aerosol 1 puff twice a day Unknown Immunizations Description No Information Available Vital Signs Date Vital Result Comment 03/12/2020 8:22am BP Systolic 135 mmHg BP Diastolic 91 mmHg Heart Rate 94 /min Respiratory Rate 14 /min O2 % BldC Oximetry 95 % Body Temperature 98.6 F Weight 270.00 lb Height 73 inches 6'1" BMI (Body Mass Index) 35.6 kg/m2 Pain Level 7 04/28/2013 9:36am BP Systolic 160 mmHg BP Diastolic 102 mmHg Heart Rate 80 /min Respiratory Rate 18 /min O2 % BldC Oximetry 98 % Body Temperature 97.9 F Weight 258.00 lb Height 72 inches 6'0" BMI (Body Mass Index) 35.0 kg/m2 Pain Level 0 Results Description No Information Available Procedures Description No Information Available Medical Devices Description No Information Available Encounters Type Date Location Provider Dx Diagnosis Office Visit 03/12/2020 8:05a Main Office SIMI Perrin J09 .x9 Flu due to ident novel influenza A virus w oth manifest R05 Cough Z20.828 Contact w and exposure to ot h viral communicable diseases Assessments Date Code Description Provider 03/12/2020 J09.x9 Influenza due to mani ntified novel influenza A virus with other manifestations SIMI Perrin 03/12/2020 R05 Cough SIMI Rosales 03/12/2020 Z20.828 Contact with and (diggs spected) exposure to other viral communicable diseases SIMI Perrin Plan of Treatment No Information Available Functional Status Description No Information Available Mental Status Description No Information Available Referrals Description No Information Available
--- OUTSIDE RECORDS SUMMARY | 2020-03-21 12:28 | CCD ---
Author Author [facility] Organization [facility] Address Unknown Phone Unavailable Care Team Providers Care Finance Assistant Name Role Phone Jazmin Ng Unavailable PROBLEMS Type Condition ICD9-CM Code [id number] Code Onset Dates Condition S tatus SNOMED Code Notes Problem Seasonal allergic rhinitis, unspecified trigger J3 0.2 Active 022719952 Problem Essential hypertension I10 Active [id number] ALLERGIES Allergen (clinical drug ingredient) Drug/Non Drug Allergy do cumented on EMR Reaction Allergy Type Onset Date Status cephalexin Keflex([facility] [place] Code:[address]-88) rash Drug Allergy Active ENCOUNTERS from 1960 to 2020-03-04 Encounter [place] [address] Jan, Jazmin Ng Essential hypertension I10 ; Seasonal al lergic rhinitis, unspecified trigger J30.2 and Intractable episodic headache, unspecified headache type R51.9 IMMUNIZATIONS No Information SOCIAL HISTORY Sex Assigned At : Social History Observation Description Sex Assigned At Unknown REASON FOR REFERRAL No Information VITAL SIGNS Height 73 in Jan, Weight 270 lbs Jan, BMI 35.62 kg/m2 Jan, Temperature 98.3 degrees Fahrenheit Jan, Heart Rate 79 /min Jan, Respiratory Rate 18 /min Jan, Oximetry 98 % Jan, Blood pressure systolic 140 mmHg Jan, Blood pressure diastolic 90 mmHg Jan, MEDICATIONS Medication SIG (Take, Route, Frequency, Duration) Notes Start Da te End Date Status Metoprolol Tartrate 25 MG 1 tablet with food Orally Twice a day for 30 day(s) Active Pravastatin Sodium 40 MG 1 tablet Orally Once a day for 30 day(s) Active Venlafaxine HCl 37.5 MG 1 tablet with food Orally Once a day for 30 day(s) Active Omeprazole 20 MG 1 capsule 30 minutes before morning meal Orally Once a day for 30 day(s) Active PROCEDURES No Information RESULTS No Results REASON FOR VISIT headache MEDICAL (GENERAL) HISTORY Type Description Date Medical History Anxiety/Depression Medical History GERD Medical History HTN Medical History HLD Medical History Allergic Rhinitis Medical History sinus "issues" Surgical History Bilateral knee replacement Surgical History Sinuses x 2 Hospitalization History Surgical Needs Goals Section No Information Health Concerns No Information MEDICAL EQUIPMENT No Information MENTAL STATUS No Information FUNCTIONAL STATUS No Information ASSESSMENTS Encounter Date Diagnosis Assessment Notes Treatment Notes Treatm ent Clinical Notes Jan, Essential hypertension (ICD-10 - I10) Your blood pressure is elevated in the office today - may be partial etiology of headache. recommend to take your blood pressure medication as prescribed, follow a low salt (DASH) diet and follow up with your PCP/inside sales trainer for further monitoring/treatment. Things that you can do at home to improve and maintain a healthy blood pressure: - Decrease salt intake - Increase water intake - Decrease alcohol and caffeine intake - Increase exercise - Weight loss. Jan, Seasonal allergic rhinitis, unspecified trigger (ICD-10 - J30.2) May take clartin/zyrtec/suma/xyzal/clarinex (or their generics) as needed for allergy symptoms (congestion, runny nose, itching) For sinus congestion, post nasal drip and/or ear pressure that is not resolved with allergy medication alone, would recommend starting Flonase or Nasonex twice per day (available over the counter). If you have history of hypertension or heart disease DO NOT take any medications that contain decongestants (including pseudoephedrine or phenylephrine). This includes allergy meds with -D (ie Zyrtec-D), dayquil, nyquil, sudafed, ect. You MAY take Coricidin (Chlorpheniramine) Continue Flonase BID; if not effective and you have been on for a long period of time may be beneficial to switch to Nasonex at this time. Start prednisone as prescribed by PCP. Jan, Intractable episodic headach e, unspecified headache type (ICD-10 - R51.9) Patient requesting COVID testing Advised low suspiscion for COVID - technically does not meet requirements for exposure. Advised results will take 3-5 days to return Will need to quarantine until results obtained If positive, public health will be in touch. Jan, Other All questions an d concerns addressed, patient understanding and agreeable to plan. Patient encouraged to follow up at the clinic for any additional or new questions or concerns. PLAN OF TREATMENT Treatment Notes Assessment Notes Clinical Notes Essential hypertension Your blood pressure is eleva jamarcus in the office today - may be partial etiology of headache.recommend to take your blood pressure medication as prescribed, follow a low salt (DASH) diet and follow up with your PCP/inside sales trainer for further monitoring/treatment.Things that you can do at home to improve and maintain a healthy blood pressure: - Decrease salt intake - Increase water intake - Decrease alcohol and caffeine intake - Increase exercise - Weight loss. Seasonal allergic rhinitis, unspecified trigger May ta ke clartin/zyrtec/suma/xyzal/clarinex (or their generics) as needed for allergy symptoms (congestion, runny nose, itching) For sinus congestion, post nasal drip and/or ear pressure that is not resolved with allergy medication alone, would recommend starting Flonase or Nasonex twice per day (available over the counter). If you have history of hypertension or heart disease DO NOT take any medications that contain decongestants (including pseudoephedrine or phenylephrine). This includes allergy meds with -D (ie Zyrtec-D), dayquil, nyquil, sudafed, ect. You MAY take Coricidin (Chlorpheniramine)Continue Flonase BID; if not effective and you have been on for a long period of time may be beneficial to switch to Nasonex at this time.Start prednisone as prescribed by PCP. Intractable episodic headache, unspecified headache ty pe Patient requesting COVID testingAdvised low suspiscion for COVID - technically does not meet requirements for exposure.Advised results will take 3-5 days to returnWill need to quarantine until results obtainedIf positive, public health will be in touch. Treatment Notes Test Name Order Date COVID19 2020-03-04 Next Appt Details prn Reason: Insurance Providers Payer Name Payer Address Payer Phone Insured Name Patient Relati onship to Insured Coverage Start Date Coverage End Date [facility] [address] [address] [facility] [id number] Jenniffer Clancy
--- OUTSIDE RECORDS SUMMARY | 2020-03-21 12:28 | CCD | Continuity of Care Document ---
Author Author [facility] [place] Organization Unknown Address [address] [place] [address] [place] [address] Phone [phone] Care Team Providers Care Fountain Pen Nibs Inspector Name Role Phone Sumi Georges MD AUTM [phone] Timmy Coulter Publi AUTM [phone] Problems Description No Information Available Social History [...]
--- OUTSIDE RECORDS SUMMARY | 2020-03-21 12:28 | CCD | Continuity of Care Document ---
Author Author [facility] CHAUD[facility] M.D. Organization Unknown Address [address] [place] [address] Phone [phone] Care Team Providers Care Fence Installer Helper Name Role Phone Sumi Georges M.D. AUTM [phone] Problems Active Problems Provider Date Screening for malignant neoplasm of colon Adán pacheco M.D. Onset: 01/04/2020 Social History Type Date Description Comments Sex Unknown ETOH Use Occasionally Tobacco Use Start: Unknown Patient has never smoked Allergies, Adverse Reactions, Alerts Active Allergies Reaction Severity Comments Date Keflex 01/04/2020 Medications Active Medications SIG Qnty Indications Ordering Provide r Date Suprep Bowel Prep Kit 17.5-3.13-1.6GM/177ML Solution use as directed 354ml Adán Chaudhari M.D. 01/04/2020 Immunizations Description No Information Available Vital Signs Date Vital Result Comment 01/04/2020 1:12pm Height 73 inches 6'1" Weight 284.00 lb BP Systolic 132 mmHg BP Diastolic 87 mmHg Heart Rate 87 /min BMI (Body Mass Index) 37.5 kg/m2 Weight 128.822 kg Body Temperature 97.9 F Results Description No Information Available Procedures Description No Information Available Medical Devices Description No Information Available Encounters Description No Information Available Assessments Date Code Description Provider 01/04/2020 Z12.11 Screening for malignant neoplasm of colon Adán Chaudhari M.D. Plan of Treatment Future Appointment(s):* 01/29/2020 8:45 am - Adán Chaudhari M.D. at Main Office 01/04/2020 - Adán Chaudhari M.D.* Z12.11 Screening for malignant neoplasm of colon* Comments:* 59 yo wm who presents for a screening colonoscopy due to a family h/o colon cancer-sister. No c/o abdominal pain, weight loss, change in bowel habits, or rectal bleeding. Positive family h/o colon cancer-sister. No h/o chest pain, or sob. Plan:1.Schedule patient for a colonoscopy.2.Informed consent given to the patient.3.Pt. advised to stop aspirin,plavix, and anticoagulants at least 3 to 7 days prior to the procedure. Functional Status Description No Information Available Mental Status Description No Information Available Referrals Description No Information Available
--- OUTSIDE RECORDS SUMMARY | 2020-03-21 12:28 | CCD | Continuity of Care Document ---
Author Author [facility]AUD[facility] M.D. Organization Unknown Address [address] [place] [address] Phone [phone] Care Team Providers Care Cigarette And Filter Chief Inspector Name Role Phone Sumi Georges M.D. AUTM [phone] Problems Active Problems Provider Date Screening for [...] Date Location Provider Dx Diagnosis Office Visit 01/04/2020 1:00p Main Office Adán Chaudhari M.D. Z 12.11 Encounter for screening for malignant neoplasm of colon Assessments Date Code Description Provider 01/04/2020 Z12.11 Screening for malignant neoplasm of colon Adán Chaudhari M.D. Plan of Treatment 01/04/2020 - Adán Chaudhari M.D.* Z12.11 Screening [...]
--- OUTSIDE RECORDS SUMMARY | 2020-03-21 12:28 | CCD | Continuity of Care Document ---
Author Author [facility] M.D. Organization Unknown Address [address] [place] [address] Phone [phone] Care Team Providers Care Snuff Blender Name Role Phone Sumi Georges M.D. AUTM [phone] Problems Active Problems Provider Date Screening for [...] Office Visit 01/04/2020 1:00p Main Office Adán Chaudhair M.D. Z 12.11 Encounter for screening for malignant neoplasm of colon Assessments Date Code Description Provider 01/04/2020 Z12.11 Screening for malignant neoplasm of colon Adán Chaudhari M.D. Plan of Treatment Future Appointment(s):* 01/24/2020 6:15 am - Sheri at Main Office * 01/29/2020 8:45 am - Adán Chaudhari M.D. [...]
--- OUTSIDE RECORDS SUMMARY | 2020-03-21 12:28 | CCD | Continuity of Care Document ---
Author Author [facility] CHAUDHARI M.D. Organization Unknown Address [address] [place] [address] Phone [phone] Care Team Providers Care Swat Team Member Name Role Phone Sumi Georges M.D. AUTM [phone] Problems Active Problems Provider Date Screening for [...] F Results Description No Information Available Procedures Date Code Description Status 02/05/2020 70044 Colonoscopy Flexible Diagnostic Completed Medical Devices Description No Information Available Encounters Type Date Location Provider Dx Diagnosis Office Visit 01/04/2020 1:00p Main Office Adán Chaudhari M.D. Z 12.11 Encounter for screening for malignant neoplasm of colon Assessments Date Code Description Provider 02/05/2020 Z80.0 Family history of malignant neop lasm of digestive organs Adán Chaudhari M.D. 02/05/2020 K64.0 First degree hemorrhoids Adán Chaudhari M.D. 01/04/2020 Z12.11 Screening for malignant neoplasm of [...]
--- OUTSIDE RECORDS SUMMARY | 2020-03-21 12:29 | CCD ---
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 Supervisor Twisting Department Name Role Phone Axel Chaudhari MD Unavailable Unavailable Axel Chaudhari MD Unavailable Unavailable Axel Chaudhari MD Unavailable Unavailable Axel Chaudhari MD Unavailable Unavailable Axel Chaudhari MD Unavailable Unavailable Axel Chaudhari MD Unavailable Unavailable Axel Chaudhari MD Unavailable Unavailable Axel Chaudhari MD Unavailable Unavailable Axel Chaudhari MD Unavailable Unavailable Axel Chaudhari MD Unavailable Unavailable Axel Chaudhari MD Unavailable Unavailable Axel Chaudhari MD Unavailable Unavailable Axel Chaudhari MD Unavailable Unavailable Axel Chaudhari MD Unavailable Unavailable Axel Chaudhari MD Unavailable Unavailable Axel Chaudhari MD Unavailable Unavailable Axel Chaudhari MD Unavailable Unavailable Axel Chaudhari MD Unavailable Unavailable Aexl Chaudhari MD Unavailable Unavailable Axel Chaudhari MD Unavailable Unavailable Fara, S Adán KNAPP Unavailable Unavailable Fara, S Adán MD Unavailable Unavailable Fara, S Adán MD Unavailable Unavailable Fara, S Adán MD Unavailable Unavailable Fara, S Adán MD Unavailable Unavailable Fara, S Adán KNAPP Unavailable Unavailable Fara, S Adán KNAPP Unavailable Unavailable Fara, S Adán MD Unavailable Unavailable Fara, S Adán MD Unavailable Unavailable Fara, S Adán MD Unavailable Unavailable Fara, S Adán MD Unavailable Unavailable Fara, S Adán MD Unavailable Unavailable Fara, S Adán MD Unavailable Unavailable Fara, S Adán MD Unavailable Unavailable Fara, S Adán MD Unavailable Unavailable Fara, S Adán MD Unavailable Unavailable Fara, S Adán MD Unavailable Unavailable Fara, S Adán MD Unavailable Unavailable Fara, S Adán MD Unavailable Unavailable Fara, S Adán KNAPP Unavailable Unavailable Fara, S Adán MD Unavailable Unavailable Fara, S Adán KNAPP Unavailable Unavailable Fara, S Adán MD Unavailable Unavailable Fara, S Adán KNAPP Unavailable Unavailable Fara, S Adán KNAPP Unavailable Unavailable Fara, S Adán KNAPP Unavailable Unavailable Fara, S Adán KNAPP Unavailable Unavailable Fara, S Adán KNAPP Unavailable Unavailable Byrnes, W Herman RPA-C Unavailable Unavailable Byrnes, W Herman RPA-C Unavailable Unavailable Byrnes, W Herman RPA-C Unavailable Unavailable Byrnes, W Herman RPA-C Unavailable Unavailable Byrnes, W Herman RPA-C Unavailable Unavailable Byrnes, W Herman RPA-C Unavailable Unavailable Byrnes, W Herman RPA-C Unavailable Unavailable Byrnes, W Herman RPA-C Unavailable Unavailable Byrnes, W Herman RPA-C Unavailable Unavailable Byrnes, W Herman RPA-C Unavailable Unavailable Byrnes, W Herman RPA-C Unavailable Unavailable Byrnes, W Herman RPA-C Unavailable Unavailable Byrnes, W Herman RPA-C Unavailable Unavailable Byrnes, W Herman RPA-C Unavailable Unavailable Byrnes, W Herman RPA-C Unavailable Unavailable Byrnes, W Herman RPA-C Unavailable Unavailable Andre Georges MD Unavailable Unavailable Andre Georges MD Unavailable Unavailable Andre Georges MD Unavailable Unavailable Andre Georges MD Unavailable Unavailable Andre Georges MD Unavailable Unavailable Andre Georges MD Unavailable Unavailable Andre Georges MD Unavailable Unavailable Andre Georges MD Unavailable Unavailable Andre Georges MD Unavailable Unavailable Pasquale Georges Moid Unavailable Unavailable GeorgesSusanul Moid MD Unavailable Unavailable GeorgesPasquale Moid Unavailable Unavailable Pasquale Georges Moid Unavailable Unavailable GeorgesPasquale Moid Unavailable Unavailable GeorgesSusanul Moid Unavailable Unavailable Georges, Pasquale Moid Unavailable Unavailable Georges, Pasquale Moid MD Unavailable Unavailable Georges, Pasquale Moid MD Unavailable Unavailable GeorgesSusanul Moid Unavailable Unavailable GeorgesSusanul Moid MD Unavailable Unavailable GeorgesSusanul Moid MD Unavailable Unavailable Georges, Pasquale Moid MD Unavailable Unavailable Georges, Pasquale Moid MD Unavailable Unavailable Georges, Pasquale Moid MD Unavailable Unavailable Pasquale Georges Moid Unavailable Unavailable Pasquale Georges Moid Unavailable Unavailable Pasquale Georges Moid MD Unavailable Unavailable Pasquale Georges Moid Unavailable Unavailable Susan Georgesul Moid MD Unavailable Unavailable Pasquale Georges Moid MD Unavailable Unavailable Pasquale Georges Moid Unavailable Unavailable Pasquale Georges Moid MD Unavailable Unavailable Pasquale Georges Moid MD Unavailable Unavailable Pasquale Georges Moid MD Unavailable Unavailable Pasquale Georges Moid MD Unavailable Unavailable Pasquale Georges Moid MD Unavailable Unavailable Pasquale Georges Moid Unavailable Unavailable Pasquale Georges Moid Unavailable Unavailable Pasquale Georges Moid Unavailable Unavailable Pasquale Georges Moid Unavailable Unavailable Pasquale Georges Moid Unavailable Unavailable Pasquale Georges Moid MD Unavailable Unavailable Pasquale Georges Moid Unavailable Unavailable Pasquale Georges Moid Unavailable Unavailable Pasquale Georges Moid Unavailable Unavailable Pasquale Georges Moid MD Unavailable Unavailable Pasquale Georges Moid MD Unavailable Unavailable Susan Georgesul Moid MD Unavailable Unavailable Georges, Pasquale Moid MD Unavailable Unavailable Susan Georgesul Moid Unavailable Unavailable Pasquale Georges Moid Unavailable Unavailable Pasquale Georges Moid Unavailable Unavailable Pasquale Georges Moid Unavailable Unavailable Susan Georgesul Moid MD Unavailable Unavailable Georges, Pasquale Moid MD Unavailable Unavailable Georges, Pasquale Moid MD Unavailable Unavailable Susan Georgesul Moid Unavailable Unavailable Pasquale Georges Moid Unavailable Unavailable Andre Georges MD Unavailable Unavailable Andre Georges MD Unavailable Unavailable Andre Georges MD Unavailable Unavailable Andre Georges MD Unavailable Unavailable Andre Georges MD Unavailable Unavailable Andre Georges MD Unavailable Unavailable LADONNA, L EVERT PA Unavailable Unavailable LADONNA, L EVERT PA Unavailable Unavailable LADONNA, L EVERT PA Unavailable Unavailable LADONNA, L EVERT PA Unavailable Unavailable LADONNA, L EVERT PA Unavailable Unavailable LADONNA, L EVERT PA Unavailable Unavailable LADONNA, L EVERT PA Unavailable Unavailable LADONNA, L EVERT PA Unavailable Unavailable LADONNA, L EVERT PA Unavailable Unavailable LADONNA, L EVERT PA Unavailable Unavailable LADONNA, L EVERT PA Unavailable Unavailable LADONNA, L EVERT PA Unavailable Unavailable LADONNA, L EVERT PA Unavailable Unavailable LADONNA, L EVERT PA Unavailable Unavailable LADONNA, L EVERT PA Unavailable Unavailable LADONNA, L EVERT PA Unavailable Unavailable LADONNA, L EVERT PA Unavailable Unavailable LADONNA, L EVERT PA Unavailable Unavailable LADONNA, L EVERT PA Unavailable Unavailable WOLFENDEN, T GEORGE PA Unavailable Unavailable WOLFENDEN, T GEORGE PA Unavailable Unavailable WOLFENDEN, T GEORGE PA Unavailable Unavailable WOLFENDEN, T GEORGE PA Unavailable Unavailable WOLFENDEN, T GEORGE PA Unavailable Unavailable WOLFENDEN, T GEORGE PA Unavailable Unavailable WOLFENDEN, T GEORGE PA Unavailable Unavailable WOLFENDEN, T GEORGE PA Unavailable Unavailable WOLFENDEN, T GEORGE PA Unavailable Unavailable WOLFENDEN, T GEORGE PA Unavailable Unavailable WOLFENDEN, T GEORGE PA Unavailable Unavailable WOLFENDEN, T GEORGE PA Unavailable Unavailable WOLFENDEN, T GEORGE PA Unavailable Unavailable WOLFENDEN, T GEORGE PA Unavailable Unavailable WOLFENDEN, T GEORGE PA Unavailable Unavailable WOLFENDEN, T GEORGE PA Unavailable Unavailable WOLFENDEN, T GEORGE PA Unavailable Unavailable WOLFENDEN, T GEORGE PA Unavailable Unavailable WOLFENDEN, T GEORGE PA Unavailable Unavailable WOLFENDEN, T GEORGE PA Unavailable Unavailable WOLFENDEN, T GEORGE PA Unavailable Unavailable WOLFENDEN, T GEORGE PA Unavailable Unavailable WOLFENDEN, T GEORGE PA Unavailable Unavailable WOLFENDEN, T GEORGE PA Unavailable Unavailable WOLFENDEN, T GEORGE PA Unavailable Unavailable WOLFENDEN, T GEORGE PA Unavailable Unavailable WOLFENDEN, T GEORGE PA Unavailable Unavailable WOLFENDEN, T GEORGE PA Unavailable Unavailable Elvia Leslie MD Unavailable Unavailable Elvia Leslie MD Unavailable Unavailable Elvia Leslie MD Unavailable Unavailable Elvia Leslie MD Unavailable Unavailable Elvia Leslie MD Unavailable Unavailable Elvia Leslie MD Unavailable Unavailable Elvia Leslie MD Unavailable Unavailable Elvia Leslie MD Unavailable Unavailable Elvia Leslie MD Unavailable Unavailable Elvia Leslie MD Unavailable Unavailable Elvia Leslie MD Unavailable Unavailable Elvia Leslie MD Unavailable Unavailable Elvia Leslie MD Unavailable Unavailable Elvia Leslie MD Unavailable Unavailable Elvia Leslie MD Unavailable Unavailable Elvia Leslie MD Unavailable Unavailable Elvia Leslie MD Unavailable Unavailable Elvia Leslie MD Unavailable Unavailable Elvia Leslie MD Unavailable Unavailable Elvia Leslie MD Unavailable Unavailable Elvia Leslie MD Unavailable Unavailable Elvia Leslie MD Unavailable Unavailable Elvia Leslie MD Unavailable Unavailable Elvia Leslie MD Unavailable Unavailable Elvia Leslie MD Unavailable Unavailable Elvia Leslie MD Unavailable Unavailable Elvia Leslie MD Unavailable Unavailable Elvia Leslie MD Unavailable Unavailable Elvia Leslie MD Unavailable Unavailable Elvia Leslie MD Unavailable Unavailable Elvia Leslie MD Unavailable Unavailable Elvia Leslie MD Unavailable Unavailable Elvia Leslie MD Unavailable Unavailable Elvia Leslie MD Unavailable Unavailable Elvia Leslie MD Unavailable Unavailable Elvia Leslie MD Unavailable Unavailable Elvia Leslie MD Unavailable Unavailable Elvia Leslie MD Unavailable Unavailable Elvia Leslie MD Unavailable Unavailable Elvia Leslie MD Unavailable Unavailable Elvia Leslie MD Unavailable Unavailable Elvia Leslie MD Unavailable Unavailable Elvia Leslie MD Unavailable Unavailable Elvia Leslie MD Unavailable Unavailable Elvia Leslie MD Unavailable Unavailable Elvia Leslie MD Unavailable Unavailable Elvia Leslie MD Unavailable Unavailable Elvia Leslie MD Unavailable Unavailable Elvia Leslie MD Unavailable Unavailable Elvia Leslie MD Unavailable Unavailable Elvia Leslie MD Unavailable Unavailable Elvia Leslie MD Unavailable Unavailable Elvia Leslie MD Unavailable Unavailable Elvia Leslie MD Unavailable Unavailable Elvia Leslie MD Unavailable Unavailable Elvia Leslie MD Unavailable Unavailable Elvia Leslie MD Unavailable Unavailable Elvia Leslie MD Unavailable Unavailable Elvia Leslie MD Unavailable Unavailable Elvia Leslie MD Unavailable Unavailable Elvia Leslie MD Unavailable Unavailable Elvia Leslie MD Unavailable Unavailable Elvia Leslie MD Unavailable Unavailable Elvia Leslie MD Unavailable Unavailable Elvia Leslie MD Unavailable Unavailable Elvia Leslie MD Unavailable Unavailable Elvia Leslie MD Unavailable Unavailable Elvia Leslie MD Unavailable Unavailable Elvia Leslie MD Unavailable Unavailable Elvia Leslie MD Unavailable Unavailable Elvia Leslie MD Unavailable Unavailable Elvia Leslie MD Unavailable Unavailable Elvia Leslie MD Unavailable Unavailable Elvia Leslie MD Unavailable Unavailable Elvia Leslie MD Unavailable Unavailable Elvia Leslie MD Unavailable Unavailable Elvia Leslie MD Unavailable Unavailable Elvia Leslie MD Unavailable Unavailable Elvia Leslie MD Unavailable Unavailable Elvia Leslie MD Unavailable Unavailable Elvia Leslie MD Unavailable Unavailable Elvia Leslie MD Unavailable Unavailable Elvia Leslie MD Unavailable Unavailable Elvia Leslie MD Unavailable Unavailable Elvia Leslie MD Unavailable Unavailable Elvia Leslie MD Unavailable Unavailable Elvia Leslie MD Unavailable Unavailable Elvia Leslie MD Unavailable Unavailable Elvia Leslie MD Unavailable Unavailable Elvia Leslie MD Unavailable Unavailable Elvia Leslie MD Unavailable Unavailable Elvia Leslie MD Unavailable Unavailable Elvia Leslie MD Unavailable Unavailable LADONNA, L EVERT PA Unavailable Unavailable LADONNA, L EVERT PA Unavailable Unavailable LADONNA, L EVERT PA Unavailable Unavailable LADONNA, L EVERT PA Unavailable Unavailable LADONNA, L EVERT PA Unavailable Unavailable LADONNA, L EVERT PA Unavailable Unavailable LADONNA, L EVERT PA Unavailable Unavailable LADONNA, L EVERT PA Unavailable Unavailable LADONNA, L EVERT PA Unavailable Unavailable LADONNA, L EVERT PA Unavailable Unavailable LADONNA, L EVERT PA Unavailable Unavailable LADONNA, L EVERT PA Unavailable Unavailable LADONNA, L EVERT PA Unavailable Unavailable LADONNA, L EVERT PA Unavailable Unavailable LADONNA, L EVERT PA Unavailable Unavailable LADONNA, L EVERT PA Unavailable Unavailable LADONNA, L EVERT PA Unavailable Unavailable LADONNA, L EVERT PA Unavailable Unavailable LADONNA, L EVERT PA Unavailable Unavailable Vaneenenaam, Don George MD Unavailable Unavailable Vaneenenaam, Don George MD Unavailable Unavailable Vaneenenaam, Don George MD Unavailable Unavailable Vaneenenaam, Don George MD Unavailable Unavailable Vaneenenaam, Don George MD Unavailable Unavailable Vaneenenaam, Don George MD Unavailable Unavailable Vaneenenaam, Don George MD Unavailable Unavailable Vaneenenaam, Don George MD Unavailable Unavailable Vaneenenaam, Don George MD Unavailable Unavailable Vaneenenaam, Don George MD Unavailable Unavailable Vaneenenaam, Don George MD Unavailable Unavailable Vaneenenaam, Don George MD Unavailable Unavailable Vaneenenaam, Don George MD Unavailable Unavailable Vaneenenaam, Don George MD Unavailable Unavailable Vaneenenaam, Don George MD Unavailable Unavailable Vaneenenaam, Don George MD Unavailable Unavailable Vaneenlucreciaam, Don George MD Unavailable Unavailable Vaneenenaam, Don George MD Unavailable Unavailable Vaneenenaam, Don George MD Unavailable Unavailable Vaneenenaam, Don George MD Unavailable Unavailable Vaneenenaam, Don George MD Unavailable Unavailable Vaneenenaam, Don George MD Unavailable Unavailable Vaneenlucreciaam, Don George MD Unavailable Unavailable Vaneenenaam, Don George MD Unavailable Unavailable Vaneenlucreciaam, Don George MD Unavailable Unavailable Vaneenlucreciaam, Don George MD Unavailable Unavailable Vaneenlucreciaam, Don George MD Unavailable Unavailable Vaneenlucreciaam, Don George MD Unavailable Unavailable Vaneenlucreciaam, Don George MD Unavailable Unavailable Vaneenlucreciaam, Don George MD Unavailable Unavailable Vaneenlucreciaam, Don George MD Unavailable Unavailable Vaneenlucreciaam, Don George MD Unavailable Unavailable Vaneenenaam, Don George MD Unavailable Unavailable Vaneenlucreciaam, Don George MD Unavailable Unavailable Vaneenenaam, Don George MD Unavailable Unavailable Vaneenlucreciaam, Don George MD Unavailable Unavailable Vanmelitonam, Don George MD Unavailable Unavailable Vanmelitonam, Don George MD Unavailable Unavailable Vanmelitonam, Don George MD Unavailable Unavailable Vanmelitonam, Don George MD Unavailable Unavailable Vaneenenaam, Don George MD Unavailable Unavailable Vaneenlucreciaam, Don George MD Unavailable Unavailable Vanaiden, Don George MD Unavailable Unavailable Vanmelitonam, Don George MD Unavailable Unavailable Hernandez, A Jazmin TECHNICAL ILLUSTRATOR Unavailable Unavailable Hernandez, A Jazmin TECHNICAL ILLUSTRATOR Unavailable Unavailable Hernandez, A Jazmin TECHNICAL ILLUSTRATOR Unavailable Unavailable Hernandez, A Jazmin TECHNICAL ILLUSTRATOR Unavailable Unavailable Hernandez, A Jazmin TECHNICAL ILLUSTRATOR Unavailable Unavailable Hernandez, A Jazmin TECHNICAL ILLUSTRATOR Unavailable Unavailable Hernandez, A Jazmin TECHNICAL ILLUSTRATOR Unavailable Unavailable Hernandez, A Jazmin TECHNICAL ILLUSTRATOR Unavailable Unavailable Hernandez, A Jazmin TECHNICAL ILLUSTRATOR Unavailable Unavailable Hernandez, A Jazmin TECHNICAL ILLUSTRATOR Unavailable Unavailable Hernandez, A Jazmin TECHNICAL ILLUSTRATOR Unavailable Unavailable Hernandez, A Jazmin TECHNICAL ILLUSTRATOR Unavailable Unavailable Hernandez, A Jazmin TECHNICAL ILLUSTRATOR Unavailable Unavailable Hernandez, A Jazmin TECHNICAL ILLUSTRATOR Unavailable Unavailable Hernandez, A Jazmin TECHNICAL ILLUSTRATOR Unavailable Unavailable Hernandez, A Jazmin TECHNICAL ILLUSTRATOR Unavailable Unavailable Hernandez, A Jazmin TECHNICAL ILLUSTRATOR Unavailable Unavailable Hernandez, A Jazmin TECHNICAL ILLUSTRATOR Unavailable Unavailable Hernandez, A Jazmin TECHNICAL ILLUSTRATOR Unavailable Unavailable Hernandez, A Jazmin TECHNICAL ILLUSTRATOR Unavailable Unavailable Hernandez, A Jazmin TECHNICAL ILLUSTRATOR Unavailable Unavailable Hernandez, A Jazmin TECHNICAL ILLUSTRATOR Unavailable Unavailable Hernandez, A Jazmin TECHNICAL ILLUSTRATOR Unavailable Unavailable Hernandez, A Jazmin TECHNICAL ILLUSTRATOR Unavailable Unavailable Hernandez, A Jazmin TECHNICAL ILLUSTRATOR Unavailable Unavailable Hernandez, A Jazmin TECHNICAL ILLUSTRATOR Unavailable Unavailable Hernandez, A Jazmin TECHNICAL ILLUSTRATOR Unavailable Unavailable Hernandez, A Jazmin TECHNICAL ILLUSTRATOR Unavailable Unavailable Hernandez, A Jazmin TECHNICAL ILLUSTRATOR Unavailable Unavailable Hernandez, A Jazmin TECHNICAL ILLUSTRATOR Unavailable Unavailable Hernandez, A Jazmin TECHNICAL ILLUSTRATOR Unavailable Unavailable Hernandez, A Jazmin TECHNICAL ILLUSTRATOR Unavailable Unavailable Hernandez, A Jazmin TECHNICAL ILLUSTRATOR Unavailable Unavailable Hernandez, A Jazmin TECHNICAL ILLUSTRATOR Unavailable Unavailable Hernandez, A Jazmin TECHNICAL ILLUSTRATOR Unavailable Unavailable Hernandez, A Jazmin TECHNICAL ILLUSTRATOR Unavailable Unavailable Hernandez, A Jazmin TECHNICAL ILLUSTRATOR Unavailable Unavailable Hernandez, A Jazmin TECHNICAL ILLUSTRATOR Unavailable Unavailable Hernandez, A Jazmin TECHNICAL ILLUSTRATOR Unavailable Unavailable Hernandez, A Jazmin TECHNICAL ILLUSTRATOR Unavailable Unavailable Hernandez, A Jazmin TECHNICAL ILLUSTRATOR Unavailable Unavailable Hernandez, A Jazmin TECHNICAL ILLUSTRATOR Unavailable Unavailable Hernandez, A Jazmin TECHNICAL ILLUSTRATOR Unavailable Unavailable Hernandez, A Jazmin TECHNICAL ILLUSTRATOR Unavailable [facility]available [facility] Unavailable Unavailable Georges, Pasquale Moid MD Unavailable Unavailable Andre Georges MD Unavailable Unavailable Andre Georges MD Unavailable Unavailable Andre Georges MD Unavailable Unavailable Andre Georges MD Unavailable Unavailable Andre Georges MD Unavailable Unavailable Pasquale Georges Moid Unavailable Unavailable Pasquale Georges Moid Unavailable Unavailable Pasquale Georges Moid Unavailable Unavailable Pasquale Georges Moid Unavailable Unavailable Pasquale Georges Moid Unavailable Unavailable Pasquale Georges Moid Unavailable Unavailable Pasquale Georges Moid Unavailable Unavailable Pasquale Georges Moid Unavailable Unavailable Lindy Georgesd Unavailable Unavailable Andre Georges MD Unavailable Unavailable Andre Georges MD Unavailable Unavailable Andre Georges MD Unavailable Unavailable Andre Georges MD Unavailable Unavailable Lindy Georgesd Unavailable Unavailable Pasquale Georges Moid Unavailable Unavailable Andre Georges MD Unavailable Unavailable Andre Georges MD Unavailable Unavailable Andre Georges MD Unavailable Unavailable Lindy Georgesd Unavailable Unavailable Lindy Georgesd Unavailable Unavailable Andre Georges MD Unavailable Unavailable Andre Georges MD Unavailable Unavailable Andre Georges MD Unavailable Unavailable Andre Georges MD Unavailable Unavailable Andre Georges MD Unavailable Unavailable Andre Georges MD Unavailable Unavailable Lindy Georgesd Unavailable Unavailable Andre Georges MD Unavailable Unavailable Andre Georges MD Unavailable Unavailable Andre Georges MD Unavailable Unavailable Andre Georges MD Unavailable Unavailable Lindy Georgesd Unavailable Unavailable Pasquale Georges Moid Unavailable Unavailable Pasquale Georges Moid Unavailable Unavailable Lindy Georgesd Unavailable Unavailable Andre Georges MD Unavailable Unavailable Andre Georges MD Unavailable Unavailable Lindy Georgesd Unavailable Unavailable Lindy Georgesd Unavailable Unavailable Pasquale Georges Moid Unavailable Unavailable Pasquale Georges Moid Unavailable Unavailable Andre Georges MD Unavailable Unavailable Andre Georges MD Unavailable Unavailable Andre Georges MD Unavailable Unavailable Georges, Pasquale Moid MD Unavailable Unavailable Andre Georges MD Unavailable Unavailable Andre Georges MD Unavailable Unavailable Andre Georges MD Unavailable Unavailable Andre Georges MD Unavailable Unavailable Andre Georges MD Unavailable Unavailable Andre Georges MD Unavailable Unavailable Andre Georges MD Unavailable Unavailable Andre Georges MD Unavailable Unavailable Andre Georges MD Unavailable Unavailable Andre Georges MD Unavailable Unavailable Andre Georges MD Unavailable Unavailable Andre Georges MD Unavailable Unavailable Andre Georges MD Unavailable Unavailable Tramaine Rojo MD Unavailable Unavailable Tramaine Rojo MD Unavailable Unavailable RojoTramaine MD Unavailable Unavailable RojoTramaine MD Unavailable Unavailable Tramaine Rojo MD Unavailable Unavailable Tramaine Rojo MD Unavailable Unavailable Tramaine Rojo MD Unavailable Unavailable Tramaine Rojo MD Unavailable Unavailable Tramaine Rojo MD Unavailable Unavailable Tramaine Rojo MD Unavailable Unavailable Tramaine Rojo MD Unavailable Unavailable RojoTramaine MD Unavailable Unavailable Tramaine Rojo MD Unavailable Unavailable RojoTramaine MD Unavailable Unavailable RojoTramaine MD Unavailable Unavailable Tramaine Rojo MD Unavailable Unavailable Tramaine Rojo MD Unavailable Unavailable Tramaine Rojo MD Unavailable Unavailable Tramaine Rojo MD Unavailable Unavailable RojoTramaine MD Unavailable Unavailable RojoTramaine MD Unavailable Unavailable Tramaine Rojo MD Unavailable Unavailable Tramaine Rojo MD Unavailable Unavailable Tramaine Rojo MD Unavailable Unavailable Tramaine Rojo MD Unavailable Unavailable Tramaine Rojo MD Unavailable Unavailable Tramaine Rojo MD Unavailable Unavailable Tramaine Rojo MD Unavailable Unavailable Tramaine Rojo MD Unavailable Unavailable RojoTramaine MD Unavailable Unavailable Tramaine Rojo MD Unavailable Unavailable Tramaine Rojo MD Unavailable Unavailable Tramaine Rojo MD Unavailable Unavailable Tramaine Rojo MD Unavailable Unavailable Tramaine Rojo MD Unavailable Unavailable Tramaine Rojo MD Unavailable Unavailable Tramaine Rojo MD Unavailable Unavailable Tramaine Rojo MD Unavailable Unavailable Tramaine Rojo MD Unavailable Unavailable Tramaine Rojo MD Unavailable Unavailable Tramaine Rojo MD Unavailable Unavailable RojoTramaine MD Unavailable Unavailable Tramaine Rojo MD Unavailable Unavailable Tramaine Rojo MD Unavailable Unavailable Tramaine Rojo MD Unavailable Unavailable Tramaine Rojo MD Unavailable Unavailable Tramaine Rojo MD Unavailable Unavailable Tramaine Rojo MD Unavailable Unavailable RojoTramaine MD Unavailable Unavailable RojoTramaine MD Unavailable Unavailable RojoTramaine MD Unavailable Unavailable LETTIERE, A RAFIA PA Unavailable Unavailable LETTIERE, A RAFIA PA Unavailable Unavailable LETTIERE, A RAFIA PA Unavailable Unavailable LETTIERE, A RAFIA PA Unavailable Unavailable LETTIERE, A RAFIA PA Unavailable Unavailable LETTIERE, A RAFIA PA Unavailable Unavailable LETTIERE, A RAFIA PA Unavailable Unavailable LETTIERE, A RAFIA PA Unavailable Unavailable LETTIERE, A RAFIA PA Unavailable Unavailable LETTIERE, A RAFIA PA Unavailable Unavailable LETTIERE, A RAFIA PA Unavailable Unavailable LETTIERE, A RAFIA PA Unavailable Unavailable LETTIERE, A RAFIA PA Unavailable Unavailable LETTIERE, A RAFIA PA Unavailable Unavailable LETTIERE, A RAFIA PA Unavailable Unavailable LETTIERE, A RAFIA PA Unavailable Unavailable LETTIERE, A RAFIA PA Unavailable Unavailable LETTIERE, A RAFIA PA Unavailable Unavailable LETTIERE, A RAFIA PA Unavailable Unavailable LETTIERE, A RAFIA PA Unavailable Unavailable LETTIERE, A RAFIA PA Unavailable Unavailable LETTIERE, A RAFIA PA Unavailable Unavailable LETTIERE, A RAFIA PA Unavailable Unavailable LETTIERE, A RAFIA PA Unavailable Unavailable LETTIERE, A RAFIA PA Unavailable Unavailable LETTIERE, A RAFIA PA Unavailable Unavailable LETTIERE, A RAFIA PA Unavailable Unavailable LETTIERE, A RAFIA PA Unavailable Unavailable LETTIERE, A RAFIA PA Unavailable Unavailable Re-disclosure Warning The records that you are about to access may contain information from federally-assisted alcohol or drug abuse programs. If such information is present, then the following federally mandated warning applies: This information has been disclosed to you from records protected by federal confidentiality rules (42 CFR part 2). The federal rules prohibit you from making any further disclosure of this information unless further disclosure is expressly permitted by the written consent of the person to whom it pertains or as otherwise permitted by 42 CFR part 2. A general authorization for the release of medical or other information is NOT sufficient for this purpose. The Federal rules restrict any use of the information to criminally investigate or prosecute any alcohol or drug abuse patient.The records that you are about to access may contain highly sensitive health information, the redisclosure of which is protected by Article 27-F of the [facility] Public Health law. If you continue you may have access to information: Regarding HIV / AIDS; Provided by facilities licensed or operated by the [facility] Office of Mental Health; or Provided by the [facility] Office for People With Developmental Disabilities. If such information is present, then the following [place] State mandated warning applies: This information has been disclosed to you from confidential records which are protected by state law. State law prohibits you from making any further disclosure of this information without the specific written consent of the person to whom it pertains, or as otherwise permitted by law. Any unauthorized further disclosure in violation of state law may result in a fine or snf sentence or both. A general authorization for the release of medical or other information is NOT sufficient authorization for further disc losure. Family History Family Member Name Family Member Gender Family Member Status Date o f Status Description Data Source(s) Unknown Female Problem MEDENT ([facility]) Unknown Female Problem MEDENT ([facility]) Unknown Female Problem MEDENT ([facility]) Encounters Encounter Providers Location Date Indications Data Source(s ) Outpatient Attender: EVERT DOUGHERTY PAConsultant: [facility] 03/18/2020 11:10:00 AM [facility] Emergency Attender: EVERT Valentino: Александр Georges MD EMERGENCY ROOM- EMERGENCY ROOM 03/18/2020 10:49:00 AM EST - 03/18/2020 10:49:00 AM [facility] Patient discharged. Emergency Attender: GEORGE Valentino: Sumi pacheco MD 03/16/2020 06:47:00 PM EST - 03/16/2020 07:00:00 PM [facility] pital Patient discharged. Outpatient Attender: RAFIA strong 03/12/2020 07:05:00 AM EST [facility] ([facility]) Outpatient Attender: Jazmin Ng FNPReferrer: Sumi Georges MD EMERGENCY ROOM- REFERRED LABS (DROP OFFS) 02/24/2020 12:49:00 PM EST - 02/24/2020 12:49:00 PM [facility] Outpatient Attender: Jazmin RIVERA 02/24/2020 11:31 :00 AM [facility] Outpatient [facility] 02/24/2020 12:00:00 AM EST eCW1 ([facility]) Outpatient Attender: Adán Chaudhari MD Main Office 01/04/2020 12:00:00 PM EST MEDENT ([facility]) Outpatient Attender: Sumi Sanchezer: Sumi pacheco MD EMERGENCY ROOM-LABOTHPROV 10/04/2019 07:42:00 AM EDT - 10/04/2019 07:42:00 AM [facility] Outpatient Attender: Efren Leslie MDReferrer: Sumi Georges MD 04/05/2019 07:21:35 PM EST [facility] Recurring Patient Referrer: Sumi Georges MD 04/05/2019 09:17: 39 AM EST [facility] Outpatient Attender: Don Aguiar MD Physical Therap y 03/10/2019 10:00:00 AM EST MEDENT ([facility]) Outpatient Attender: Sumi BAKEReferrer: Sumi Georges MD 03/03/2019 09:57:00 AM EST - 03/03/2019 09:57:00 AM [facility] Outpatient Attender: Norbert Tracy/Nasrin/Raymundo/Elvia eicedrick 02/08/2019 08:45:00 AM EST [facility] ([facility] Emergency Attender: Herman Byrnes RPA-CReferrer: Sumi Georges MD EMERGENCY ROOM-ER 07/03/2017 03:44:00 PM EDT - 07/03/2017 06:15:00 PM [facility] Outpatient Attender: Sumi Gridererrer: Sumi pacheco MD EMERGENCY ROOM-LABOTHPROV 05/18/2017 07:51:00 AM EDT - 05/18/2017 07:51:00 AM [facility] Outpatient Attender: Sumi Georges MD EMERGENCY ROOM-LABOTHPROV 12/23/2015 08:44:00 AM EDT - 12/23/2015 08:44:00 AM [facility] Immunizations Vaccine Date Status Description Data Source(s) INFLUENZA VIRUS VACCINE QUADRIVALENT 2019- (6 MOS AN D UP) 12/27/2019 12:00:00 AM EDT [facility] Drugs Medications Medication Brand Name Start Date Product Form Dose Route Admi nistrative Instructions Pharmacy Instructions Status Indications Reaction Description Data Source(s) 300-30 mg 03/19/2020 12:00:00 AM EST tablet 30 TAKE ONE TABLET BY MOUTH EVERY 4 HOURS NEEDED MAXIMUM DAILY DOSE = 6 TABLETS TAKE ONE TABLET BY MOUTH EVERY 4 HOURS NEEDED MAXIMUM DAILY DOSE = 6 TABLETS SOLD: 03/19/2020 [facility] 4 mg 03/15/2020 12:00:00 AM EST tablets,dose pack 21 TAKE DIRECTED BY MOUTH TAKE DIRECTED BY MOUTH SOLD: 03/15/2020 [facility] 250 mg 03/15/2020 12:00:00 AM EST tablet 6 TAKE DIRECTED BY MOUTH TAKE DIRECTED BY MOUTH SOLD: 03/15/2020 [facility] Oseltamivir 75 MG Oral Capsule Oseltamivir Phosphate 03/12/2020 12:00:00 AM EST ORAL active MEDENT ( [facility]) 75 mg 03/12/2020 12:00:00 AM EST capsule 10 TAKE ONE CAPSULE BY MOUTH TWICE A DAY FOR 5 DAYS TAKE ONE CAPSULE BY MOUTH TWICE A DAY FOR 5 DAYS SOLD: 03/12/2020 [facility] 4 mg 02/14/2020 12:00:00 AM EST tablets,dose pack 21 USE DIRECTED ON DOSE RICH USE DIRECTED ON DOSE RICH SOLD: 02/14/2020 [facility] Suprep Bowel Prep Kit Suprep Bowel Prep Kit 01/04/2020 12:00:00 AM EST active [facility]) 17.5-3.13-1.6 gram 01/04/2020 12:00:00 AM EST recon soln 354 USE DIRECTED USE DIRECTED SOLD: 01/05/2020 [facility] 12/27/2019 12:00:00 AM EDT Injectable 1 DIRECTED DIRECTED SOLD: 12/27/2019 [facility] 250 mg 11/20/2019 12:00:00 AM EDT tablet 6 TAKE TWO TABLETS BY MOUTH AT ONCE ON THE FIRST DAY THEN TAKE ONE DAILY THEREAFTER TAKE TWO TABLETS BY MOUTH AT ONCE ON THE FIRST DAY THEN TAKE ONE DAILY THEREAFTER SOLD: 11/20/2019 [facility] 4 mg 11/20/2019 12:00:00 AM EDT tablets,dose pack 21 TAKE ACCORDING TO PACKAGE INSTRUCTIONS TAKE ACCORDING TO PACKAGE INSTRUCTIONS SOLD: 11/20/2019 [facility] 20 mg 11/14/2019 12:00:00 AM EDT tablet 8 TAKE ONE TABLET BY MOUTH EVERY DAY NEEDED TAKE ONE TABLET BY MOUTH EVERY DAY NEEDED SOLD: 11/16/2019 [facility] Alprazolam 0.5 MG Oral Tablet ALPRAZOLAM 11/08/2019 12:00:00 AM EDT t ablet 120 TAKE ONE TABLET BY MOUTH FOUR TIMES A DAY MAX=4TABS/DA Y TAKE ONE TABLET BY MOUTH FOUR TIMES A DAY MAX=4TABS/DAY SOLD: 11/10/2019 [facility] 800 mg 08/03/2019 12:00:00 AM EDT tablet 30 TAKE ONE TABLET BY MOUTH EVERY 8 HOURS NEEDED FOR PAIN TAKE ONE TABLET BY MOUTH EVERY 8 HOURS A S NEEDED FOR PAIN SOLD: 08/03/2019 [facility] 0.12 % 08/03/2019 12:00:00 AM EDT mouthwash 473 SWISH 15ML BY MOUTH TWO TIMES A DAY FOR 30 SECONDS THEN SPIT SWISH 15ML BY MOUTH TWO TIMES A DAY FOR 30 SECONDS THEN SPIT SOLD: 08/03/2019 [facility] 500 mg 08/01/2019 12:00:00 AM EDT tablet 4 TAKE FOUR TABLETS BY MOUTH 1 HOUR PRIOR TO DENTAL PROCEDURE TAKE FOUR TABLETS BY MOUTH 1 HOUR PRIOR TO DENTAL PROCEDURE SOLD: 08/03/2019 [facility] 500 mg 07/28/2019 12:00:00 AM EDT capsule 40 TAKE ONE CAPSULE BY MOUTH FOUR TIMES A DAY TAKE ONE CAPSULE BY MOUTH FOUR TIMES A DAY SOLD: 07/28/2019 [facility] 4 mg 06/30/2019 12:00:00 AM EDT tablets,dose pack 21 DIRECTED WITH FOOD DIRECTED WITH FOOD SOLD: 06/30/2019 [facility] 250 mg 06/30/2019 12:00:00 AM EDT tablet 6 TAKE TWO TABLETS BY MOUTH AT ONCE ON THE FIRST DAY THEN TAKE ONE DAILY THEREAFTER TAKE TWO TABLETS BY MOUTH AT ONCE ON THE FIRST DAY THEN TAKE ONE DAILY THEREAFTER SOLD: 06/30/2019 [facility] 1 % 06/20/2019 12:00:00 AM EDT drops,suspension 5 INSTILL 1 DROP IN EACH EYE THREE TIMES A DAY DIRECTED SHAKE WELL BEFORE EACH USE INSTILL 1 DROP IN EACH EYE THREE TIMES A DAY DIRECTED SHAKE WELL BEFORE EACH USE SOLD: 06/20/2019 [facility] Alprazolam 0.5 MG Oral Tablet ALPRAZOLAM 06/14/2019 12:00:00 AM EDT ta blet 90 TAKE ONE TABLET BY MOUTH THREE TIMES A DAY MAXIMUM DAILY DOSE = 3 TAKE ONE TABLET BY MOUTH THREE TIMES A DAY MAXIMUM DAILY DOSE = 3 SOLD: 06/15/2019 [facility] 0.2 % 06/12/2019 12:00:00 AM EDT drops,suspension 5 INSTILL 1 DROP IN EACH EYE TWO TIMES A DAY *SHAKE BEFORE USE* INSTILL 1 DROP IN EACH EYE TWO TIMES A DAY *SHAKE BEFORE USE* SOLD: 06/12/2019 [facility] 90 mcg/actuation 05/29/2019 12:00:00 AM EDT HFA aerosol inha ler 36 INHALE TWO PUFFS BY MOUTH FOUR TIMES A DAY NEEDED INHALE TWO PUFFS BY MOUTH FOUR TIMES A DAY NEEDED SOLD: 05/30/2019 [facility] 0.1 mg/hr 04/05/2019 12:00:00 AM EST patch 24 hour 30 APPLY 1 PATCH FOR 12 TO 14 HOURS DAILY THEN REMOVE APPLY 1 PATCH FOR 12 TO 14 HOURS DAILY T HEN REMOVE SOLD: 04/06/2019 [facility] 80-4.5 mcg/actuation 03/23/2019 12:00:00 AM EST HFA aerosol inhaler 10 INHALE TWO PUFFS BY MOUTH TWICE A DAY INHALE TWO PUFFS BY MOUTH TWICE A DAY SOLD: 01/01/2020 [facility] 80-4.5 mcg/actuation 03/23/2019 12:00:00 AM EST HFA aerosol inhaler 10 INHALE TWO PUFFS BY MOUTH TWICE A DAY INHALE TWO PUFFS BY MOUTH TWICE A DAY SOLD: 03/23/2019 [facility] 80-4.5 mcg/actuation 03/23/2019 12:00:00 AM EST HFA aerosol inhaler 10 INHALE TWO PUFFS BY MOUTH TWICE A DAY INHALE TWO PUFFS BY MOUTH TWICE A DAY SOLD: 09/13/2019 [facility] 60 ACTUAT Budesonide 0.08 MG/ACTUAT / fo rmoterol fumarate 0.0045 MG/ACTUAT Metered Dose Inhaler [Symbicort] Symbicort 03/22/2019 12:00:00 AM EST RESPIRATORY active MEDENT ( [facility] ) 75 mg 03/22/2019 12:00:00 AM EST capsule 14 TAKE TWO CAPSULES BY MOUTH TWICE A DAY TAKE TWO CAPSULES BY MOUTH TWICE A DAY SOLD: 03/22/2019 [facility] 37.5 mg 03/08/2019 12:00:00 AM EST capsule,extended releas e 24hr 90 TAKE ONE CAPSULE BY MOUTH EVERY DAY TAKE ONE CAPSULE BY MOUTH EVERY DAY SOLD: 03/12/2019 [facility] 4 mg 03/03/2019 12:00:00 AM EST tablets,dose pack 21 DIRECTED IN PACKAGE DIRECTED IN PACKAGE SOLD: 03/03/2019 [facility] 500 mg 03/03/2019 12:00:00 AM EST tablet 20 TAKE ONE TABLET BY MOUTH TWICE A DAY TAKE ONE TABLET BY MOUTH TWICE A DAY SOLD: 03/03/2019 [facility] 4 mg 02/27/2019 12:00:00 AM EST tablets,dose pack 21 USE DIRECTED ON PACKAGE USE DIRECTED ON PACKAGE SOLD: 02/27/2019 [facility] 500 mg 01/30/2019 12:00:00 AM EST capsule 40 TAKE ONE CAPSULE BY MOUTH FOUR TIMES A DAY TAKE ONE CAPSULE BY MOUTH FOUR TIMES A DAY SOLD: 01/30/2019 [facility] 10-8 mg/5 mL 01/30/2019 12:00:00 AM EST suspension,extended rel 12 hr 60 TAKE ONE TEASPOON BY MOUTH EVERY 12 HOURS MAXIMUM DAILY DOSE = 2 TEASPOONS TAKE ONE TEASPOON BY MOUTH EVERY 12 HOURS MAXIMUM DAILY DOSE = 2 TEASPOONS SOLD: 01/30/2019 [facility] Insurance Providers Payer name Policy type / Coverage type Policy ID Covered democrat ID Covered democrat's relationship to ruiz Policy Ruiz Plan Information [facility] [id number] WI2 [id number] [facility] [id number] SPO [id number] [facility] [id number] SPO [id number] [employer] [id number] SPO [id number] [employer] [id number] SPO [id number] R F [id number] SPOUSE [id number] ANSI-Commercial [id number] ANSI-Commercial [id number] [facility] F [id number] SPOUSE [id number] [facility] Commercial [id number] Family Dependent [id number] [facility] CLAIM ADMIN WORK COMP [id number] SP [id number] [employer] [id number] [facility] [id number] [place] Claims (WC) Workers Compensation [id number] [facility] [id number] ANSI-Commercial [id number] ANSI-Commercial [id number] ANSI-Commercial [id number] ANSI-Commercial [id number] ANSI-Commercial [id number] ANSI-Commercial [id number] [facility] [id number] ANSI-Commercial [id number] ANSI-Commercial [id number] ANSI-Commercial [id number] ANSI-Commercial [id number] WORKERS COMPENSATION [id number] SP [id number] [facility] [id number] [facility] [id number] [facility] [employer]ANCE FUND [id number] SP [id number] ANSI-Commercial [id number] ANSI-Commercial [id number] ANSI-Commercial [id number] ANSI-Commercial [id number] ANSI-Commercial [id number] ANSI-Commercial [id number] ANSI-Commercial [id number] ANSI-Commercial [id number] [employer] (pr) Medigap Part B [id number] Family Dependent [id number] State Ins Fund () Workers Compensation [id number] Self [id number] State Ins Fund () Workers Compensation [id number] Self [id number] Special Funds-Dew () Workers Compensation [id number] Self [id number] [employer] PPO O [id number] S [id number] SPECIAL FUNDS O [id number] S [id number] [employer] (pr) Commercial [id number] Family Dependent [id number] State Ins Fund () Workers Compensation [id number] Self [id number] STATE INSURANCE FUND [id number] S [id number] SPECIAL FUNDS CONSERVATION [id number] S [id number] [place] [employer] [id number] S [id number] [employer] [id number] [place]2 [id number] STATE INSURANCE FUND WCB#[id number] SP WCB#[id number] [employer] [id number] [place]2 [id number] State Ins Fund () Workers Compensation Self Special Funds-[employer]ew (WC) Workers Compensation Self State Ins Fund () Workers Compensation Self [employer] (pr) Commercial Family Dependent [facility] [id number] SP [id number] [facility] DIV [id number] SP [id number] SPECIAL FUNDS P [id number] S [id number] [facility] [id number] SP [id number] [facility] DIV [id number] SP [id number] STATE INSURANCE FUND [id number] SP [id number] STATE INSURANCE FUND [id number] SP [id number] SPECIAL FUNDS CONSERVATION-DEW [id number] SP [id number] Problems, Conditions, and Diagnoses Code Display Name Description Problem Type Effective Dates Data Source(s) J30.2 804582378 Seasonal allergic rhinitis, unspecified 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 Problem 02/24/2020 12:00:00 AM EST [facility] I10 [id number] Essential hypertension Problem 02/24/2020 12 :00:00 AM EST eCW1 ([facility]) [id number] Screening for malignant neoplasm of colo n Screening for malignant neoplasm of colon Problem 01/04/2020 12:00:00 AM EST MED[facility] ([facility]) Z79.899 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 Diagnosis 03/18/2020 10:49:00 AM [facility] Z79.51 half-way (current) use of inhaled stero ids PRISON (CURRENT) USE OF INHALED STEROIDS Diagnosis 03/18/2020 10:49:00 AM [facility] l Z79.2 half-way (current) use of antibiotics L IRVING TERM (CURRENT) USE OF ANTIBIOTICS Diagnosis 03/18/2020 10:49:00 AM [facility] l U07.1 COVID-19 COVID-19 Diagnosis 03/18/2020 10:49:00 AM [facility] R50.9 Fever, unspecified FEVER, UNSPECIFIED Diagnosis 10:49:00 AM [facility] I10 Essential (primary) hypertension ESSENTIAL (PRIMARY) H YPERTENSION Diagnosis 03/16/2020 06:47:00 PM [facility] J45.909 Unspecified asthma, uncomplicated UNSPECIFIED THMA, UNCOMPLICATED Diagnosis 03/16/2020 06:47:00 PM [facility] M79.10 MYALGIA, UNSPECIFIED SITE MYALGIA, UNSPECIFIED SITE Di agnosis 03/16/2020 06:47:00 PM [facility] R53.83 Other fatigue OTHER FATIGUE Diagnosis 03/16/2020 06:47:00 PM [facility] R51.9 HEADACHE, UNSPECIFIED HEADACHE, UNSPECIFIED Diagnosis 02/24/2020 11:31:00 AM [facility] J30.2 Other seasonal allergic rhinitis OTHER SEASONAL ALLERGIC RHINITIS Diagnosis 02/24/2020 11:31:00 AM [facility] E05.90 Thyrotoxicosis, unspecified without thyr otoxic crisis or storm THYROTOXICOSIS, UNSP WITHOUT THYROTOXIC CRISIS OR Diagnosis 06/2019 07:42:00 AM [facility] E29.1 Testicular hypofunction TESTICULAR HYPOFUNCTION Diagno sis 10/04/2019 07:42:00 AM [facility] E78.00 PURE HYPERCHOLESTEROLEMIA, UNSPECIFIED P URE HYPERCHOLESTEROLEMIA, UNSPECIFIED Diagnosis 10/04/2019 07:42:00 AM [facility] J98.01 Acute bronchospasm ACUTE BRONCHOSPASM Diagnosis 04/2019 09:57:00 AM [facility] Surgeries/Procedures Procedure Description Date Indications Data Source(s) COLONOSCOPY FLX DX W/WO COLLJ SPECIMENS 02/05/2020 12: 00:00 AM EST MEDENT ([facility]) Results ID Date Data Source [id number] 03/21/2020 11:43:00 AM EST [facility] Patient: ELVA DODD Observation Rep ort - [facility].VisitID: [id number] [place] [address] [phone], MRegistration Date/Time: 03/18/2020 09:32 Weight:122.4 kg (S). Height/Length:73 inches (S). BMI:35.6 FAMILY HISTORYNegative. No significant family medical history. (Electronically signed by Cindy Loco 03/19/2020 19:20) Addenda for ELVA DODD VisitID: [id number] Date: 03/18/2020 03/21/2020 11:25Wife of pt called stating is having fevers of over 103 and what we advise. Discussed pts discharge instructions and stated that if he wishes he may return to be reevaluated. states she will bring him back in. (Electronically signed by Cisco Mccauley R.N. 03/21/2020 11:25) Name Value Range Interpretation Code Description Data Sejal rce(s) Supporting Document(s) ID Date Data Source [id number] 03/19/2020 07:47:00 PM EST [facility] Patient: ELVA DODD Observation Rep ort - [facility].VisitID: [id number] [place] [address] [phone], MRegistration Date/Time: 03/18/2020 09:32 Weight:122.4 kg (S). Height/Length:73 inches (S). BMI:35.6 FAMILY HISTORYNegative. No significant family medical history. (Electronically signed by Cindy Loco 03/19/2020 19:20) Name Value Range Interpretation Code Description Data Sejal rce(s) Supporting Document(s) ID Date Data Source [id number] 03/18/2020 11:51:00 AM EST [facility] DATE OF EXAMINATION: 03/18/2020 10:50 EST CHEST 1 VIEW HISTORY: Cough TECHNIQUE: Single frontal radiograph of chest COMPARISON: 10/04/2019 FINDINGS: No evidence of focal consolidation, pneumothorax or large pleural effusion.Lungs are clear. Mediastinal structures are unremarkable. No aggressive osseouslesions. IMPRESSION: No focal consolidation. Electronically signed in PS360 by: Erica Fenton M.D. 03/18/2020 11:46 EST Name Value Range Interpretation Code Description Data Sejal rce(s) Supporting Document(s) ID Date Data Source [id number] 03/18/2020 12:31:00 PM EST [facility] TSYSORDER [id number] Name Value Range Interpretation Code Description Data Sejal rce(s) Supporting Document(s) ERYTHROCYTE SEDIMENTATION RATE 40 mm/hr 0-20 H [facility] ID Date Data Source [id number] 03/18/2020 12:24:00 PM EST [facility] TSYSORDER [id number] Name Value Range Interpretation Code Description Data Sejal rce(s) Supporting Document(s) FERRITIN 1240 ng/mL 26-388 [facility] ID Date Data Source [id number] 03/18/2020 11:52:00 AM EST [facility] TSYSORDER [id number] Name Value Range Interpretation Code Description Data Sejal rce(s) Supporting Document(s) TROPONIN I < 0.017 ng/mL 0.0-0.056 [facility] ID Date Data Source [id number] 03/18/2020 11:51:00 AM EST [facility] TSYSORDER [id number] Name Value Range Interpretation Code Description Data Sejal rce(s) Supporting Document(s) PARTIAL THROMBOPLASTIN TIME 27.5 SECONDS 21.2-27.3 [facility] ID Date Data Source [id number] 03/18/2020 11:51:00 AM EST [facility] TSYSORDER [id number] Name Value Range Interpretation Code Description Data Sejal rce(s) Supporting Document(s) PROTHROMBIN TIME (PATIENT) 9.9 SECONDS 9.1-11.6 [facility] INR 0.95 0.87-1.06 [facility] ID Date Data Source [id number] 03/18/2020 11:51:00 AM EST [facility] TSYSORDER [id number] Name Value Range Interpretation Code Description Data Sejal rce(s) Supporting Document(s) LACTIC ACID 1.3 mmol/L 0.4-2.0 [facility] ID Date Data Source [id number] 03/18/2020 11:50:00 AM EST [facility] TSYSORDER [id number] Name Value Range Interpretation Code Description Data Sejal rce(s) Supporting Document(s) C REACTIVE PROTEIN 37.0 mg/L 0.0-3.0 [facility] dennis ID Date Data Source [id number] 03/18/2020 11:50:00 AM [facility] TSYSORDER [id number] Name Value Range Interpretation Code Description Data Sejal rce(s) Supporting Document(s) GLUCOSE 97 mg/dL 74-106 [facility] BLOOD UREA NITROGEN 15 mg/dL 7-18 [facility] ital CREATININE 1.10 mg/dL 0.7-1.3 [facility] SODIUM 130 mmol/L 136-145 L [facility] POTASSIUM 4.0 mmol/L 3.5-5.1 [facility] CHLORIDE 92 mmol/L 98-107 L [facility] CO2 27 mmol/L 21-32 [facility] CALCIUM 9.0 mg/dL 8.5-10.1 [facility] ANION GAP 11.0 mmol/L 5-12 [facility] GLOMERULAR FILTRATION RATE 69 mL/min [facility] GFR IS CALCULATED IN mL/min/1.73m2 TEMO L FUNCTION: >90MILDLY DECREASED: 60-89MILDY TO MODERATELY DECREASED: 45-59 MODERATELY TO SEVERELY DECREASED: 30-44SEVERELY DECREASED: 15-29RENAL FAILURE: <15 AST 48 U/L 15-37 H [facility] ALT 62 U/L 12-78 [facility] ALKALINE PHOSPHATASE 65 U/L 46-116 [facility] pital TOTAL BILIRUBIN 0.4 mg/dL 0.2-1.0 [facility] TOTAL PROTEIN 8.8 g/dl 6.4-8.2 H [facility] ALBUMIN 3.8 gm/dL 3.4-5.0 [facility] ID Date Data Source [id number] 03/18/2020 11:30:00 AM [facility] TSYSORDER [id number] Name Value Range Interpretation Code Description Data Sejal rce(s) Supporting Document(s) PH 7.39 7.31-7.41 [facility] VENOUS PCO2 46.8 mmHg 41-51 [facility] VENOUS PO2 29 mmHg 35-42 L [facility] VENOUS BLODD O2 SATURATION 36.0 % 68-77 L [facility] VENOUS BLOOD HCO3 27.6 meq/L 24.0-25.0 [facility] VENOUS BASE EXCESS 2.3 -3.0-3.0 [facility] VENOUS BLOOD CO2 29.1 mmol/L 23.0-32.0 [facility] ID Date Data Source [id number] 03/18/2020 11:27:00 AM [facility] l TSYSORDER [id number] Name Value Range Interpretation Code Description Data Sejal rce(s) Supporting Document(s) WHITE BLOOD COUNT 4.2 K/mm3 4.0-10.0 [facility] al RED BLOOD COUNT 5.21 M/mm3 4.50-6.00 [facility] HEMOGLOBIN 16.6 gm/dL 14.0-18.0 [facility] HEMATOCRIT 46.9 % 42.0-54.0 [facility] MEAN CELL VOLUME 90.0 fl 80-96 [facility] MEAN CORPUSCULAR HEMOGLOBIN 31.9 pg 27.0-31.0 H [facility] MEAN CORPUSCULAR HGB CONC 35.4 g/dl 32.0-36.0 [facility] RED CELL DISTRIBUTION WIDTH 12.6 % 10.0-14.5 [facility] PLATELET COUNT 161 K/mm3 172-450 L [facility] MEAN PLATELET VOLUME 10.0 fl 9.0-13.0 [facility] pital GRAN % 82.1 % 50-80.0 H [facility] IG% 0.5 % 0.0-0.2 H [facility] LYMPH % 10.5 % 25.0-50.0 L [facility] MONO % 6.7 % 2.0-10.0 [facility] EOS % 0.0 % 0-5.0 [facility] BASO % 0.2 % 0.0-2.0 [facility] GRAN # 3.4 K/mm3 2.0-8.00 [facility] IG# 0.0 K/mm3 0.0-0.2 [facility] LYMPH # 0.4 K/mm3 1.0-5.0 L [facility] MONO # 0.3 K/mm3 0.10-1.20 [facility] EOS # 0.0 K/mm3 0.0-0.5 [facility] BASO # 0.0 K/mm3 0.0-0.2 [facility] ID Date Data Source [id number] 03/18/2020 09:56:00 AM EST [facility] Name Value Range Interpretation Code Description Data Sejal rce(s) Supporting Document(s) SARS COV2 TRP DETECTED [facility] This lab was ordered by [facility] and reported by [facility]. ID Date Data Source [id number] 03/18/2020 11:47:00 AM EST [facility] TSYSORDER [id number] Results called to HAMILTONIain on 03/18/20-1146 byMEERA. Name Value Range Interpretation Code Description Data Sejal rce(s) Supporting Document(s) Adenovirus Not Detected Detected Not [facility] ospital Coronavirus 229E Not Detected Detected Not [facility] Coronavirus HKU1 Not Detected Detected Not [facility] Coronavirus NL63 Not Detected Detected Not [facility] Coronavirus OC43 Not Detected Detected Not [facility] Sars Cov 2 DETECTED Detected Not [facility] Human Metapneumovirus Not Detected Detected [facility] Human Rhinovirus Not Detected Detected Not [facility] Influenza A Not Detected Detected [facility] Influenza B Not Detected Detected Not [facility] Parainfluenza Virus 1 Not Detected Detected Not [facility] Parainfluenza Virus 2 Not Detected Detected Not [facility] Parainfluenza Virus 3 Not Detected Detected Not [facility] Parainfluenza Virus 4 Not Detected Detected Not [facility] Respiratory Syncytial Virus Not Detected Detected Not [facility] Bordetella parapertus ([id number]) Not Detected Detected Not [facility] Bordetella pertussis (ptxP) Not Detected Detected Not [facility] Chlamydia pneumoniae Not Detected Detected Not [facility] Mycoplasma pneumoniae Not Detected Detected Not [facility] The Above results have been determined b y using the [employer] system.Film[employer] is an automated in vitro diagnostic system thatutilizes nested multiplex Polymerase Chain Reaction (PCR)and high-resolution melting analysis to detect and identifymultiple nucleic acid targets from clinical specimens. ID Date Data Source [id number] 03/16/2020 07:13:00 PM EST [facility] Patient: ELVA DODD Rep ort - [facility].VisitID: [id number] [place] [address] [phone], MRegistration Date/Time: 03/16/2020 18:40 Weight:121.5 kg (S). Height/Length:73 inches (S). BMI:35.3 PAST HISTORYProblems:Seasonal allergic rhinitis.Arthritis.Asthma.Anxiety Reaction.Gastroesophageal Reflux Disease.Sinusitis.Hypertension. Additional Surgeries:Bilateral knee replacement. (Left 2011right 2016)Knee Surgery.Sinus Surgery. Medications:Tamiflu Oral (Capsule 75 mg) 1 capsule, 2x a day.Albuterol Sulfate HFA Inhalation 2 puffs, as needed, last dose last pm.Metoprolol Succinate ER Oral (Tablet Extended Release 24 Hour 25 mg) 1 tablet, daily, last dose today.Omeprazole Oral (Tablet Delayed Release 20 mg) 1 tablet, 2x a day, last dose TODAY. Allergies:Keflex.(rash). FAMILY HISTORYNo significant family medical history. (Electronically signed by George Allen P.A. 03/16/2020 19:00) Name Value Range Interpretation Code Description Data Sejal rce(s) Supporting Document(s) ID Date Data Source [id number] 03/12/2020 12:00:00 AM EST [facility] Name Value Range Interpretation Code Description Data Sejal rce(s) Supporting Document(s) SARS coronavirus 2 Ag Negative [facility] This lab was ordered by [facility] and reported by [facility]. ID Date Data Source [id number] 02/24/2020 12:05:00 PM EST [facility] Name Value Range Interpretation Code Description Data Sejal rce(s) Supporting Document(s) [facility] 2 [facility] This [facility] was ordered by [facility] nd reported by [facility]. ID Date Data Source [id number] 02/27/2020 04:10:00 PM EST [facility] Name Value Range Interpretation Code Description Data Sejal rce(s) Supporting Document(s) SARS COV2 [facility] Not Detected Not Detected [facility] This nucleic acid amplification test was developed [...] SARS-CoV-2 virusand/or diagnosis of COVID-19 infection under ohmsvoh931(b)(1) of the Act, 21 U.S.C. 360bbb-3(b) (1), unless theauthorization is terminated or revoked sooner.When diagnostic testing is negative, the possibility of afalse negative result should be considered in the contextof a patient's recent exposures and the presence ofclinical signs and symptoms consistent with COVID-19. Anindividual without symptoms of COVID-19 and who is notshedding SARS-CoV-2 virus would expect to have a negative(not detected) result in this assay.Performed at: [id number] [employer] [facility], [place], [place] [id number] Director: Meena Mc PhD, Phone: [phone] ID Date Data Source [id number] 02/27/2020 04:05:00 PM EST [facility] Name Value Range Interpretation Code Description Data Sejal rce(s) Supporting Document(s) SARS-CoV-2, ERWIN Not Detected Not Detected [facility] This nucleic acid amplification test was developed and its performancecharacteristics determined by [employer]. Nucleic acidamplification tests include PCR and TMA. This test has not been FDAcleared or approved. This test has been authorized by FDA under anEmergency Use Authorization (EUA). This test is only authorized forthe duration of time the declaration that circumstances existjustifying the authorization of the emergency use of in vitrodiagnostic tests for detection of SARS-CoV-2 virus and/or diagnosisof COVID-19 infection under section 564(b)(1) of the Act, 21 U.S.C.360bbb-3(b) (1), unless the authorization is terminated or revokedsooner.When diagnostic testing is negative, the possibility of a falsenegative result should be considered in the context of a patient'srecent exposures and the presence of clinical signs and symptomsconsistent with COVID- 19. An individual without symptoms of COVID-19and who is not shedding SARS-CoV-2 virus would expect to have anegative (not detected) result in this assay. ID Date Data Source [id number] 01/31/2020 11:15:00 AM EST [facility] Name Value Range Interpretation Code Description Data [facility] rce(s) Supporting Document(s) SARS coronavirus 2 RNA [facility] This lab was ordered by [facility] and reported by [facility]. ID Date Data Source [id number] 10/04/2019 09:02:00 AM EDT [facility] DATE OF EXAMINATION: 10/04/2019 8:02 EDT CHEST 2 VIEWS HISTORY: Physical TECHNIQUE: PA and lateral radiographs of the chest COMPARISON: 03/03/2019 FINDINGS: No evidence of focal consolidation, pneumothorax or large pleural effusion.Lungs are clear. Mediastinal structures are unremarkable. No aggressive osseouslesions. IMPRESSION: No focal consolidation. Electronically signed in PS360 by: Erica Fenton M.D. 10/04/2019 8:56 EDT Name Value Range Interpretation Code Description Data Sejal rce(s) Supporting Document(s) ID Date Data Source [id number] 10/05/2019 12:09:00 PM EDT [facility] Name Value Range Interpretation Code Description Data [facility] rce(s) Supporting Document(s) TESTOSTERONE, SERUM 268 ng/dL 264-676 [facility] Adult male reference interval is based o n a population ofhealthy nonobese males (BMI <30) between 19 and 39 yearsold. Maddison et.al. JCEM 2017,102;4514-7264. PMID:[id number].Performed at: - [facility] [id number] Director: Catherine Cleveland MD, Phone: [phone] ID Date Data Source [id number] 10/05/2019 12:05:00 PM EDT [facility] Name Value Range Interpretation Code Description Data Sejal rce(s) Supporting Document(s) Testosterone, Serum 268 ng/dL [id number] [facility] Adult male reference interval is based o n a population ofhealthy nonobese males (BMI <30) between 19 and 39 years old.radha Washburn.al. JCEM 2017,102;7149-2109. PMID: [id number]. ID Date Data Source [id number] 10/04/2019 08:51:00 AM EDT [facility] FAX [phone] Name Value Range Interpretation Code Description Data Sejal rce(s) Supporting Document(s) PSA 0.56 ng/mL 0.0-4.0 [facility] THIS ASSAY WAS PERFORMED ON THE [employer] USINGTHE B- GALACTOSIDASE/CRPG METHODOLOGY. THE PSA IS NOT AN ABSOLUTE TEST FOR MALIGNANCY. IT SHOULD BEUSED IN CONJUNCTION WITH INFORMATION AVAILABLE FROM THECLINICAL EVALUATION AND OTHER DIAGNOSTIC PROCEDURES. VALUES OBTAINED WITH DIFFERENT ASSAY METHODS CANNOT BE USEDINTERCHANGEABLY. ID Date Data Source [id number] 10/04/2019 08:51:00 AM EDT [facility] FAX [phone] Name Value Range Interpretation Code Description Data Sejal rce(s) Supporting Document(s) TSH 2.65 uIU/mL 0.36-3.74 [facility] ID Date Data Source [id number] 10/04/2019 08:39:00 AM EDT [facility] FA[facility] [phone] Name Value Range Interpretation Code Description Data Sejal rce(s) Supporting Document(s) CHOLESTEROL 228 mg/dL 0-200 H [facility] TRIGLYCERIDES 134 mg/dL 0-150 [facility] LDL CHOLESTEROL 116 mg/dL 0-100 H [facility] HDL CHOLESTEROL 85 mg/dL 40-60 H [facility] CHOL/HDL RATIO 2.7 0.0-5.0 [facility] ID Date Data Source [id number] 10/04/2019 08:39:00 AM [facility]T [facility] [phone] Name Value Range Interpretation Code Description Data Sejal rce(s) Supporting Document(s) GLUCOSE 98 mg/dL 74-106 [facility] BLOOD UREA NITROGEN 10 mg/dL 7-18 [facility] ital CREATININE 1.1 mg/dL 0.7-1.3 [facility] SODIUM 137 mmol/L 136-145 [facility] POTASSIUM 4.6 mmol/L 3.5-5.1 [facility] CHLORIDE 101 mmol/L 98-107 [facility] CO2 31 mmol/L 21-32 [facility] CALCIUM 8.9 mg/dL 8.5-10.1 [facility] ANION GAP 5.0 mmol/L 5-12 [facility] GLOMERULAR FILTRATION RATE 69 mL/min [facility] GFR IS CALCULATED IN mL/min/1.73m2 TEMO L FUNCTION: >90MILDLY DECREASED: 60-89MILDY TO MODERATELY DECREASED: 45-59 MODERATELY TO SEVERELY DECREASED: 30-44SEVERELY DECREASED: 15-29RENAL FAILURE: <15 AST 28 U/L 15-37 [facility] ALT 47 U/L 12-78 [facility] ALKALINE PHOSPHATASE 63 U/L 46-116 [facility] pital TOTAL BILIRUBIN 0.6 mg/dL 0.2-1.0 [facility] TOTAL PROTEIN 7.2 g/dl 6.4-8.2 [facility] ALBUMIN 3.8 gm/dL 3.4-5.0 [facility] ID Date Data Source [id number] 10/04/2019 08:31:00 AM EDT [facility] FAX [phone] Name Value Range Interpretation Code Description Data Sejal rce(s) Supporting Document(s) ESTIMATED AVERAGE GLUCOSE 105.4 mg/dL [facility] ID Date Data Source [id number] 10/04/2019 08:31:00 AM EDT [facility] FAX [phone] Name Value Range Interpretation Code Description Data Sejal rce(s) Supporting Document(s) HGBA1C 5.3 % 3.8-5.6 [facility] Diabetic > or = to 6.5%Prediabetes 5.7-6 .4%Normal <5.7 ID Date Data Source [id number] 10/04/2019 08:10:00 AM EDT [facility] FAX [phone] Name Value Range Interpretation Code Description Data Sejal rce(s) Supporting Document(s) WHITE BLOOD COUNT 4.6 K/mm3 4.0-10.0 [facility] al RED BLOOD COUNT 4.67 M/mm3 4.50-6.00 [facility] HEMOGLOBIN 15.4 gm/dL 14.0-18.0 [facility] HEMATOCRIT 44.3 % 42.0-54.0 [facility] MEAN CELL VOLUME 94.9 fl 80-96 [facility] MEAN CORPUSCULAR HEMOGLOBIN 33.0 pg 27.0-31.0 H [facility] MEAN CORPUSCULAR HGB CONC 34.8 g/dl 32.0-36.0 [facility] RED CELL DISTRIBUTION WIDTH 13.3 % 10.0-14.5 [facility] PLATELET COUNT 201 K/mm3 172-450 [facility] ID Date Data Source [id number] 04/05/2019 07:21:35 PM EST [facility], PCName: Elva Pizarro: 1Provider: Angelica Leslie: 04/05/2019 Results/DataXRays were ordered, obtained and interpreted today in the office. Indication: pain/dysfunction. Side: Right Site: Ankle Views: 3 Views AP/Lateral, Mortise Findings: no new fractures or dislocations, the joint remains reduced, No signs of charcot, deformity or event. Assessment 1. Right ankle pain (719.47) (M25.571) Plan 1. Start: Nitroglycerin 0.1 MG/HR Transdermal Patch 24 Hour (Nitro-Dur); APPLY PATCH FOR 12 TO 14 HOURS DAILY, THEN REMOVE Rx By: Efren Leslie; Dispense: 30 Days ; #:1 X 30 Patch Box; Refill: 0;For: Right ankle pain; SONNY = N; Verified Transmission to [facility]; Last Updated By: Terence Weller; 04/05/2019 10:26:47 AM 2. X-Ray I Ankle - 3 views (XRays were ordered, obtained and interpreted today in the office. Indication: pain/dysfunction.); Status:Complete; Done: [id number] Perform:SOS22; Due:[id number]; Last Updated By:Leena Coyle; 04/05/2019 9:45:40 AM;Ordered; For:Right ankle pain; Ordered By:Efren Leslie;Weight Bearing Status : Weight bearingLaterality: : Right 3. DME (SOS) Supply(s) Diagnostic Diagnostic Status: Complete Done: [id number] Ordered;For: Achilles tendinitis, Right ankle pain; Ordered By: Efren Leslie Performed: Due: [id number]; Last Updated By: Greta Jason; 04/05/2019 10:25:40 AMDME Supply (s) : Thermoplastic AFO, right AssessmentRight Achilles non-insertional tendinosis, severePlanHe reported insidious onset of pain, September 2018. No injury. Aching, throbbing, moderate to severe. Worse with standing, walking, working. 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 He has tried physical therapy, time, anti-inflammatories and a boot walker. The boot walker helps some. He is not ready to do surgery. He is tired of the pain and discomfort.I discussed a thermoplastic AFO. Hopefully that helps. Conservative bracing has failed. The boot walker helps but he cannot use it on a routine basis. We will try the thermoplastic AFO and see if it improves his symptoms.He has continued trouble, ankle and foot related. I believe that custom ankle-foot orthosis is medically necessary to control range of motion, b oth in regards to dorsiflexion and plantarflexion, and torque which would make the condition more painful. This condition has continued to persist for over 6 months, and will continue to be a problem lifelong. We have elected to avoid surgical intervention at present. This brace should optimize mobility as best as possible.I discussed surgery with him. This would be an Achilles debridement and repair, flexor hallux us longus tendon transfer, amniotic membrane supplementation. I told him generally results are good but it takes a long time to recover from.He is hoping to avoid surgery for now.He will try nitroglycerin patch applied daily.He describes Achilles avascular tendinosis. There is a palpable mass, posterior Achilles, watershed area that is not associated with the insertional area. There is no evidence of rupture. We discussed options for treatment. Conservative treatment includes, but is not limited to, NSAIDs, stretching, eccentric loading, physical therapy, nitro patch, and brisement. A ctivity modification frequently helps - minimizing running, and engaging in low- impact exercises. Other unproven treatment options exist, including shockwave therapy, PRP, and cold laser treatment. Surgical options include debridement, repair, and flexor hallicus tendon transfer. Surgery in indicated after failure of appropriate conservative care.The main reason for surgery is significant pain and disability. Surgery works well to improve ability to do low-impact exercise, walk, and perform day to day activity. There is no guarantee of being able to run, jog, or do extensive impact exercise. Risks of surgery include, not limited to, infection, repeat surgery, wound problems, continued pain, weakness, failure to achieve the desired result, blood clots, PE, etc. Recovery can take 6 months to a year for maximal medical improvement. There is typical postoperative immobilization for 2-3 months. There is a period of nonweightbearing for typically 4 weeks, sometimes longer. Typically results are good, but not great. Typically patients do have some degree of continued pain, but are significantly improved from preoperative status. No guarantee is offered in terms of complete pain relief.Follow-up at any time to discuss further options if he wants. My anticipation is that he is young enough and active enough that eventually he will want to do surgery.He understood our conversation, asked appropriate questions, illustrated understanding of our discussion, understood recommendations for treatment, and understood associated risks and benefits. Signatures Electronically signed by : Yusuf Collier; Apr 05 2019 7:21PM EST (Author) Name Value Range Interpretation Code Description Data Sejal rce(s) Supporting Document(s) ID Date Data Source [id number] 03/03/2019 10:34:00 AM EST [facility] DATE OF EXAMINATION: 03/03/2019 10:03 EST CHEST 2 VIEWS HISTORY: Bronchospasm TECHNIQUE: PA and lateral radiographs of the chest COMPARISON: None. FINDINGS: No evidence of focal consolidation, pneumothorax or large pleural effusion.Lungs are clear. Mediastinal structures are unremarkable. No aggressive osseouslesions. IMPRESSION: No focal consolidation. Electronically signed in PS360 by: Erica Fenton M.D. 03/03/2019 10:28 EST Name Value Range Interpretation Code Description Data Sejal rce(s) Supporting Document(s) Procedure Social History Code Duration Value Status Description Data Source(s ) Smoking 03/12/2020 12:00:00 AM EST Patient has never smoked co mpleted Patient has never smoked [facility] ([facility], [facility]) Smoking 08/14/2019 12:00:00 AM EDT Patient has never smoked co mpleted Patient has never smoked [facility] ([facility], ) Vital Signs ID Date Data Source UNK Name Value Range Interpretation Code Description Data Source(s) Body mass index (BMI) [Ratio] 35.6 kg/m2 35.6 k g/m2 [facility] ([facility], [facility]) Body height 73 [in_i] 73 [in_i] [facility] ([facility], [facility]) 6'1" Body weight 270.00 [lb_av] 270.00 [lb_av] MEDEN T ([facility], [facility]) Body temperature 98.6 [degF] 98.6 [degF] [facility] ([facility], [facility]) Oxygen saturation in Arterial blood by Pulse oximetry 95 % 95 % [facility] ([facility], [facility]) Respiratory rate 14 /min 14 /min [facility] ( [facility], [facility]) Heart rate 94 /min 94 /min [facility] ([facility], [facility]) Diastolic blood pressure 91 mm[Hg] 91 mm[Hg] [facility] ([facility], [facility]) Systolic blood pressure 135 mm[Hg] 135 mm[Hg] M EDENT ([facility], [facility]) Body height 73 [in_i] 73 [in_i] eCW1 ([facility]) Body weight 270 [lb_av] 270 [lb_av] eCW1 ([facility]) Body mass index (BMI) [Ratio] 35.62 kg/m2 35.62 kg/m2 eCW1 ([facility]) Body temperature 98.3 [degF] 98.3 [degF] eCW1 ( [facility]) Heart rate 79 /min 79 /min eCW1 ([facility]) Respiratory rate 18 /min 18 /min eCW1 ([facility]) Oxygen saturation in Arterial blood by Pulse oximetry 98 % 98 % eCW1 ([facility]) Body temperature 97.9 [degF] 97.9 [degF] [facility] ([facility]) Body weight 128.822 kg 128.822 kg [facility] ([facility]) Body mass index (BMI) [Ratio] 37.5 kg/m2 37.5 k g/m2 [facility] ([facility]) Heart rate 87 /min 87 /min [facility] ([facility]) Diastolic blood pressure 87 mm[Hg] 87 mm[Hg] [facility] ([facility]) Systolic blood pressure 132 mm[Hg] 132 mm[Hg] [facility] Body weight 284.00 [lb_av] 284.00 [lb_av] MEDEN T ([facility]) Body height 73 [in_i] 73 [in_i] [facility] ([facility]) 6'1" Body weight 127.008 kg 127.008 kg [facility] ([facility]) Body mass index (BMI) [Ratio] 36.9 kg/m2 36.9 k g/m2 [facility] ([facility]) Body weight 280.00 [lb_av] 280.00 [lb_av] [facility] Body height 73 [in_i] 73 [in_i] [facility] ([facility]) 6'1" Body temperature 97.4 [degF] 97.4 [degF] [facility] ([facility]) Oxygen saturation in Arterial blood by Pulse oximetry 97 % 97 % [facility] ([facility]) Room Air Heart rate 80 /min 80 /min [facility] ([facility]) Diastolic blood pressure 94 mm[Hg] 94 mm[Hg] [facility] ([facility]) Systolic blood pressure 142 mm[Hg] 142 mm[Hg] [facility] ([facility]) Body height 73 [in_i] 73 [in_i] [facility] ([facility]) 6'1" Oxygen saturation in Arterial blood by Pulse oximetry 96 % 96 % [facility] ([facility]) Heart rate 69 /min 69 /min [facility] ([facility]) Diastolic blood pressure 88 mm[Hg] 88 mm[Hg] [facility] ([facility]) Systolic blood pressure 128 mm[Hg] 128 mm[Hg] [facility] ([facility]) Body weight 125.250 kg 125.250 kg [facility] ([facility]) Body mass index (BMI) [Ratio] 36.4 kg/m2 36.4 k g/m2 [facility] Body weight 276.12 [lb_av] 276.12 [lb_av] [facility] ([facility])
[2020-03-21] MEDS ORDERED: ACETAMINOPHEN TAB 650MG DOSE (2X325MG) PO ONE (12:45)
--- OUTSIDE RECORDS SUMMARY | 2020-03-21 12:53 | CCD ---
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 Name Role Phone Axel Chaudhari MD Unavailable [...] Pasquale Georges Moid MD Unavailable Unavailable Pasquale Geroges Moid Unavailable Unavailable Pasquale Georges Moid MD [...] George MD Unavailable Unavailable Hernandez, A Jazmin HOUSING PROPERTY MANAGER Unavailable Unavailable Hernandez, A Jazmin HOUSING PROPERTY MANAGER Unavailable Unavailable Hernandez, A Jazmin HOUSING PROPERTY MANAGER Unavailable Unavailable Hernandez, A Jazmin HOUSING PROPERTY MANAGER Unavailable Unavailable Hernandez, A Jazmin HOUSING PROPERTY MANAGER Unavailable Unavailable Hernandez, A Jazmin HOUSING PROPERTY MANAGER Unavailable Unavailable Hernandez, A Jazmin HOUSING PROPERTY MANAGER Unavailable Unavailable Hernandez, A Jazmin HOUSING PROPERTY MANAGER Unavailable Unavailable Hernandez, A Jazmin HOUSING PROPERTY MANAGER Unavailable Unavailable Hernandez, A Jazmin HOUSING PROPERTY MANAGER Unavailable Unavailable Hernandez, A Jazmin HOUSING PROPERTY MANAGER Unavailable Unavailable Hernandez, A Jazmin HOUSING PROPERTY MANAGER Unavailable Unavailable Hernandez, A Jazmin HOUSING PROPERTY MANAGER Unavailable Unavailable Hernandez, A Jazmin HOUSING PROPERTY MANAGER Unavailable Unavailable Hernandez, A Jazmin HOUSING PROPERTY MANAGER Unavailable Unavailable Hernandez, A Jazmin HOUSING PROPERTY MANAGER Unavailable Unavailable Hernandez, A Jazmin HOUSING PROPERTY MANAGER Unavailable Unavailable Hernandez, A Jazmin HOUSING PROPERTY MANAGER Unavailable Unavailable Hernandez, A Jazmin HOUSING PROPERTY MANAGER Unavailable Unavailable Hernandez, A Jazmin HOUSING PROPERTY MANAGER Unavailable Unavailable Hernandez, A Jazmin HOUSING PROPERTY MANAGER Unavailable Unavailable Hernandez, A Jazmin HOUSING PROPERTY MANAGER Unavailable Unavailable Hernandez, A Jazmin HOUSING PROPERTY MANAGER Unavailable Unavailable Hernandez, A Jazmin HOUSING PROPERTY MANAGER Unavailable Unavailable Hernandez, A Jazmin HOUSING PROPERTY MANAGER Unavailable Unavailable Hernandez, A Jazmin HOUSING PROPERTY MANAGER Unavailable Unavailable Hernandez, A Jazmin HOUSING PROPERTY MANAGER Unavailable Unavailable Hernandez, A Jazmin HOUSING PROPERTY MANAGER Unavailable Unavailable Hernandez, A Jazmin HOUSING PROPERTY MANAGER Unavailable Unavailable Hernandez, A Jazmin HOUSING PROPERTY MANAGER Unavailable Unavailable Hernandez, A Jazmin HOUSING PROPERTY MANAGER Unavailable Unavailable Hernandez, A Jazmin HOUSING PROPERTY MANAGER Unavailable Unavailable Hernandez, A Jazmin HOUSING PROPERTY MANAGER Unavailable Unavailable Hernandez, A Jazmin HOUSING PROPERTY MANAGER Unavailable Unavailable Hernandez, A Jazmin HOUSING PROPERTY MANAGER Unavailable Unavailable Hernandez, A Jazmin HOUSING PROPERTY MANAGER Unavailable Unavailable Hernandez, A Jazmin HOUSING PROPERTY MANAGER Unavailable Unavailable Hernandez, A Jazmin HOUSING PROPERTY MANAGER Unavailable Unavailable Hernandez, A Jazmin HOUSING PROPERTY MANAGER Unavailable Unavailable Hernandez, A Jazmin HOUSING PROPERTY MANAGER Unavailable Unavailable Hernandez, A Jazmin HOUSING PROPERTY MANAGER Unavailable Unavailable Hernandez, A Jazmin HOUSING PROPERTY MANAGER Unavailable Unavailable Hernandez, A Jazmin HOUSING PROPERTY MANAGER Unavailable Unavailable Hernandez, A Jazmin HOUSING PROPERTY MANAGER Unavailable [facility] Unavailable Unavailable Georges, [...] Unavailable Unavailable Tramaine Rojo MD Unavailable Unavailable Trmaaine Rojo MD Unavailable Unavailable Tramaine Rojo MD [...] is protected by Article 27-F of the [facility] Public Health law. If you continue you may have access to information: Regarding HIV / AIDS; Provided by facilities licensed or operated by the [facility] Office of Mental Health; or Provided by the [facility] Office for People With Developmental Disabilities. If such information is present, then the following [place] State mandated warning applies: This information has [...] law may result in a fine or usp sentence or both. A general authorization for the release of medical or other information is NOT sufficient authorization for further disc losure. Family History Family Member Name Family Member Gender Family Member Status Date o f Status Description Data Source(s) Unknown Female Problem MEDENT ([facility]) Unknown Female Problem MEDENT ([facility]) Unknown Female Problem MEDENT ([facility]) Encounters Encounter Providers Location Date Indications Data Source(s ) Outpatient Attender: EVERT DOUGHERTY PAConsultant: [facility] 03/18/2020 11:10:00 AM [facility] Emergency Attender: EVERT Valentino: Александр Georges MD EMERGENCY ROOM- EMERGENCY ROOM 03/18/2020 10:49:00 AM EST - 03/18/2020 10:49:00 AM [facility] Patient discharged. Emergency Attender: GEORGE Valentino: Sumi pacheco MD 03/16/2020 06:47:00 PM EST - 03/16/2020 07:00:00 PM [facility]ital Patient discharged. Outpatient Attender: RAFIA strong 03/12/2020 07:05:00 AM EST [facility]ENT ([facility]) Outpatient Attender: Jazmin Ng FNPReferrer: Sumi Georges MD EMERGENCY ROOM- REFERRED LABS (DROP OFFS) 02/24/2020 12:49:00 PM EST - 02/24/2020 12:49:00 PM [facility] Outpatient Attender: Jazmin RIVERA 02/24/2020 11:31 :00 AM [facility] Outpatient [facility] 02/24/2020 12:00:00 AM EST eCW1 ([facility]) Outpatient Attender: Adán Chaudhari MD Main Office 01/04/2020 12:00:00 PM EST MEDENT ([facility]) Outpatient Attender: Sumi Sanchezer: Sumi pacheco MD EMERGENCY ROOM-LABOTHPROV 10/04/2019 07:42:00 AM EDT - 10/04/2019 07:42:00 AM [facility] Outpatient Attender: Efren Leslie MDReferrer: Sumi Georges MD 04/05/2019 07:21:35 PM EST [facility] Recurring Patient Referrer: Suim Georges MD 04/05/2019 09:17: 39 AM EST [facility] Outpatient Attender: Don Aguiar MD Physical Therap y 03/10/2019 10:00:00 AM EST MEDENT ([facility]) Outpatient Attender: Sumi BAKEReferrer: Sumi Georges MD 03/03/2019 09:57:00 AM EST - 03/03/2019 09:57:00 AM [facility] Outpatient Attender: Norbert Tracy/Nasrin/Raymundo/Elvia eicedrick 02/08/2019 08:45:00 AM EST [facility] ([facility] Emergency Attender: Herman Byrnes RPA-CReferrer: Sumi Georges MD EMERGENCY ROOM-ER 07/03/2017 03:44:00 PM EDT - 07/03/2017 06:15:00 PM [facility] Outpatient Attender: Sumi Gridererrer: Sumi pacheco MD EMERGENCY ROOM-LABOTHPROV 05/18/2017 07:51:00 AM EDT - 05/18/2017 07:51:00 AM [facility] Outpatient Attender: Sumi Georges MD EMERGENCY ROOM-LABOTHPROV 12/23/2015 08:44:00 AM EDT - 12/23/2015 08:44:00 AM [facility] Immunizations Vaccine Date Status Description Data Source(s) INFLUENZA VIRUS VACCINE QUADRIVALENT 2019- (6 MOS AN D UP) 12/27/2019 12:00:00 AM EDT [facility] Drugs Medications Medication Brand Name Start [...] 12:00:00 AM EST ORAL active MEDENT ( [facility]) 75 mg 03/12/2020 12:00:00 [...] Kit 01/04/2020 12:00:00 AM EST active MEDENT ([facility]) 17.5-3.13-1.6 gram 01/04/2020 12:00:00 AM EST recon [...] 12:00:00 AM EST RESPIRATORY active MEDENT ( [facility], ) 75 mg 03/22/2019 12:00:00 AM [...] relationship to ruiz Policy Ruiz Plan Information [facility] [id number] WI2 [id number] [facility] [id number] SPO [id number] [facility] [id number] SPO [id number] [employer] [id number] SPO [id number] [employer] [id number] SPO [id number] R F [id number] SPOUSE [id number] ANSI-Commercial [id number] ANSI-Commercial [id number] [facility] F [id number] SPOUSE [id number] [facility] Commercial [id number] Family Dependent [id number] [facility] CLAIM ADMIN WORK COMP [id number] SP [id number] [employer] [id number] [facility] [id number] [employer] (WC) Workers Compensation [id number] [facility] [id number] ANSI-Commercial [id number] ANSI-Commercial [id number] ANSI-Commercial [id number] ANSI-Commercial [id number] ANSI-Commercial [id number] ANSI-Commercial [id number] [facility] [id number] ANSI-Commercial [id number] ANSI-Commercial [id number] ANSI-Commercial [id number] ANSI-Commercial [id number] OTHER WORKERS COMPENSATION [id number] SP [id number] [facility] [id number] [facility] [id number] [facility] INSURANCE FUND [id number] SP [id number] ANSI-Commercial [id number] ANSI-Commercial [id number] ANSI-Commercial [id number] ANSI-Commercial [id number] ANSI-Commercial [id number] ANSI-Commercial [id number] ANSI-Commercial [id number] ANSI-Commercial [id number] [employer] (pr) Medigap Part B [id number] Family Dependent [id number] State Ins Fund () Workers Compensation [id number] Self [id number] State Ins Fund () Workers Compensation [id number] Self [id number] Special Funds-Dew () Workers Compensation [id number] Self [id number] [employer] PPO O [id number] S [id number] SPECIAL FUNDS O [id number] S [id number] [employer] (pr) Commercial [id number] Family Dependent [id number] State Ins Fund () Workers Compensation [id number] Self [id number] STATE INSURANCE FUND [id number] S [id number] SPECIAL FUNDS CONSERVATION [id number] S [id number] [place] [employer] [id number] S [id number] [employer] [id number] [place]2 [id number] STATE INSURANCE FUND WCB#[id number] SP WCB#[id number] [employer] [id number] [place]2 [id number] State Ins Fund () Workers Compensation Self Special Funds-Dew (WC) Workers Compensation Self State Ins Fund () Workers Compensation Self [employer] (pr) Commercial Family Dependent [facility] [id number] SP [id number] [facility] [id number] SP [id number] SPECIAL FUNDS P [id number] S [id number] [facility] [id number] SP [id number] 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 02/24/2020 12:00:00 AM EST [facility]CW1 ([facility]) I10 [id number] Essential hypertension Problem 02/24/2020 12 :00:00 AM EST eCW1 ([facility]) [id number] Screening for malignant neoplasm of colo n Screening for malignant neoplasm of colon Problem 01/04/2020 12:00:00 AM EST MEDENT ([facility]) Z79.899 Other fpc (current) drug therapy 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 Diagnosis 03/18/2020 10:49:00 AM [facility] l Z79.51 care home (current) use of inhaled stero ids SENIOR CARE (CURRENT) USE OF INHALED STEROIDS Diagnosis 03/18/2020 10:49:00 AM [facility] l Z79.2 care home (current) use of antibiotics L IRVING TERM (CURRENT) USE OF ANTIBIOTICS Diagnosis 03/18/2020 10:49:00 AM [facility] l U07.1 COVID-19 COVID-19 Diagnosis 03/18/2020 10:49:00 AM [facility] R50.9 Fever, unspecified FEVER, UNSPECIFIED Diagnosis 10:49:00 AM [facility] I10 Essential (primary) hypertension ESSENTIAL (PRIMARY) H YPERTENSION Diagnosis 03/16/2020 06:47:00 PM [facility] J45.909 Unspecified asthma, uncomplicated UNSPECIFIED THMA, UNCOMPLICATED Diagnosis 03/16/2020 06:47:00 PM [facility] M79.10 MYALGIA, UNSPECIFIED SITE MYALGIA, UNSPECIFIED SITE Di agnosis 03/16/2020 06:47:00 PM [facility] R53.83 Other fatigue OTHER FATIGUE Diagnosis 03/16/2020 06:47:00 PM [facility] R51.9 HEADACHE, UNSPECIFIED HEADACHE, UNSPECIFIED Diagnosis 02/24/2020 11:31:00 AM [facility] J30.2 Other seasonal allergic rhinitis OTHER SEASONAL ALLERGIC RHINITIS Diagnosis 02/24/2020 11:31:00 AM [facility] E05.90 Thyrotoxicosis, unspecified without thyr otoxic crisis or storm THYROTOXICOSIS, UNSP WITHOUT THYROTOXIC CRISIS OR Diagnosis 06/2019 07:42:00 AM [facility] E29.1 Testicular hypofunction TESTICULAR HYPOFUNCTION Diagno sis 10/04/2019 07:42:00 AM [facility] E78.00 PURE HYPERCHOLESTEROLEMIA, UNSPECIFIED P URE HYPERCHOLESTEROLEMIA, UNSPECIFIED Diagnosis 10/04/2019 07:42:00 AM [facility] l J98.01 Acute bronchospasm ACUTE BRONCHOSPASM Diagnosis 04/2019 09:57:00 AM [facility] Surgeries/Procedures Procedure Description Date Indications Data Source(s) COLONOSCOPY FLX DX W/WO COLLJ SPECIMENS 02/05/2020 12: 00:00 AM EST MEDENT ([facility]) Results ID Date Data Source [id number] 03/21/2020 11:43:00 AM EST [facility] Patient: ELVA DODD Observation Rep ort - [facility].VisitID: [id number] [place] [address] [phone], MRegistration Date/Time: 03/18/2020 09:32 Weight:122.4 kg (S). Height/Length:73 inches (S). BMI:35.6 FAMILY HISTORYNegative. No significant family medical history. (Electronically signed by Cindy Loco 03/19/2020 19:20) Addenda for ELVA DODD VisitID: [id number] Date: 03/18/2020 03/21/2020 11:25Wife of pt called [...] rce(s) Supporting Document(s) ID Date Data Source [id number] 03/19/2020 07:47:00 PM EST [facility] Patient: ELVA DODD Observation Rep ort - [facility].VisitID: [id number] [place] [address] [phone], MRegistration Date/Time: 03/18/2020 09:32 Weight:122.4 kg (S). Height/Length:73 inches (S). BMI:35.6 FAMILY HISTORYNegative. No significant family medical history. (Electronically signed by Cindy Loco 03/19/2020 19:20) Name Value Range Interpretation Code Description Data Sejal rce(s) Supporting Document(s) ID Date Data Source [id number] 03/18/2020 11:51:00 AM EST [facility] [...] rce(s) Supporting Document(s) ID Date Data Source [id number] 03/18/2020 12:31:00 PM EST [facility] TSYSORDER [id number] Name Value Range Interpretation Code Description Data Sejal rce(s) Supporting Document(s) ERYTHROCYTE SEDIMENTATION RATE 40 mm/hr 0-20 H [facility] ID Date Data Source [id number] 03/18/2020 12:24:00 PM EST [facility] TSYSORDER [id number] Name Value Range Interpretation Code Description Data Sejal rce(s) Supporting Document(s) FERRITIN 1240 ng/mL 26-388 H [facility] ID Date Data Source [id number] 03/18/2020 11:52:00 AM EST [facility] TSYSORDER [id number] Name Value Range Interpretation Code Description Data Sejal rce(s) Supporting Document(s) TROPONIN I < 0.017 ng/mL 0.0-0.056 [facility] ID Date Data Source [id number] 03/18/2020 11:51:00 AM EST [facility] TSYSORDER [id number] Name Value Range Interpretation Code Description Data Sejal rce(s) Supporting Document(s) PARTIAL THROMBOPLASTIN TIME 27.5 SECONDS 21.2-27.3 H [facility] ID Date Data Source [id number] 03/18/2020 11:51:00 AM EST [facility] TSYSORDER [id number] Name Value Range Interpretation Code Description Data Sejal rce(s) Supporting Document(s) PROTHROMBIN TIME (PATIENT) 9.9 SECONDS 9.1-11.6 [facility] INR 0.95 0.87-1.06 [facility] ID Date Data Source [id number] 03/18/2020 11:51:00 AM EST [facility] TSYSORDER [id number] Name Value Range Interpretation Code Description Data Sejal rce(s) Supporting Document(s) LACTIC ACID 1.3 mmol/L 0.4-2.0 [facility] ID Date Data Source [id number] 03/18/2020 11:50:00 AM EST [facility] TSYSORDER [id number] Name Value Range Interpretation Code Description Data Sejal rce(s) Supporting Document(s) C REACTIVE PROTEIN 37.0 mg/L 0.0-3.0 H [facility] dennis ID Date Data Source [id number] 03/18/2020 11:50:00 AM [facility] TSYSORDER [id number] Name Value Range Interpretation Code Description Data Sejal rce(s) Supporting Document(s) GLUCOSE 97 mg/dL 74-106 [facility] BLOOD UREA NITROGEN 15 mg/dL 7-18 [facility] ital CREATININE 1.10 mg/dL 0.7-1.3 [facility] SODIUM 130 mmol/L 136-145 L [facility] POTASSIUM 4.0 mmol/L 3.5-5.1 [facility] CHLORIDE 92 mmol/L 98-107 L [facility] CO2 27 mmol/L 21-32 [facility] CALCIUM 9.0 mg/dL 8.5-10.1 [facility] ANION GAP 11.0 mmol/L 5-12 [facility] GLOMERULAR FILTRATION RATE 69 mL/min [facility] GFR IS CALCULATED IN mL/min/1.73m2 TEMO L FUNCTION: >90MILDLY DECREASED: 60-89MILDY TO MODERATELY DECREASED: 45-59 MODERATELY TO SEVERELY DECREASED: 30-44SEVERELY DECREASED: 15-29RENAL FAILURE: <15 AST 48 U/L 15-37 H [facility] ALT 62 U/L 12-78 [facility] ALKALINE PHOSPHATASE 65 U/L 46-116 [facility]ital TOTAL BILIRUBIN 0.4 mg/dL 0.2-1.0 [facility] TOTAL PROTEIN 8.8 g/dl 6.4-8.2 H [facility] ALBUMIN 3.8 gm/dL 3.4-5.0 [facility] ID Date Data Source [id number] 03/18/2020 11:30:00 AM [facility] TSYSORDER [id number] Name Value Range Interpretation Code Description Data Sejal rce(s) Supporting Document(s) PH 7.39 7.31-7.41 [facility] VENOUS PCO2 46.8 mmHg 41-51 [facility] VENOUS PO2 29 mmHg 35-42 L [facility] VENOUS BLODD O2 SATURATION 36.0 % 68-77 L [facility] VENOUS BLOOD HCO3 27.6 meq/L 24.0-25.0 [facility] VENOUS BASE EXCESS 2.3 -3.0-3.0 [facility] VENOUS BLOOD CO2 29.1 mmol/L 23.0-32.0 [facility] ID Date Data Source [id number] 03/18/2020 11:27:00 AM [facility] l TSYSORDER [id number] Name Value Range Interpretation Code Description Data Sejal rce(s) Supporting Document(s) WHITE BLOOD COUNT 4.2 K/mm3 4.0-10.0 [facility] al RED BLOOD COUNT 5.21 M/mm3 4.50-6.00 [facility] HEMOGLOBIN 16.6 gm/dL 14.0-18.0 [facility] HEMATOCRIT 46.9 % 42.0-54.0 [facility] MEAN CELL VOLUME 90.0 fl 80-96 [facility] MEAN CORPUSCULAR HEMOGLOBIN 31.9 pg 27.0-31.0 H [facility] MEAN CORPUSCULAR HGB CONC 35.4 g/dl 32.0-36.0 [facility] RED CELL DISTRIBUTION WIDTH 12.6 % 10.0-14.5 [facility] PLATELET COUNT 161 K/mm3 172-450 L [facility] MEAN PLATELET VOLUME 10.0 fl 9.0-13.0 [facility] pital GRAN % 82.1 % 50-80.0 H [facility] IG% 0.5 % 0.0-0.2 H [facility] LYMPH % 10.5 % 25.0-50.0 L [facility] MONO % 6.7 % 2.0-10.0 [facility] EOS % 0.0 % 0-5.0 [facility] BASO % 0.2 % 0.0-2.0 [facility] GRAN # 3.4 K/mm3 2.0-8.00 [facility] IG# 0.0 K/mm3 0.0-0.2 [facility] LYMPH # 0.4 K/mm3 1.0-5.0 L [facility] MONO # 0.3 K/mm3 0.10-1.20 [facility] EOS # 0.0 K/mm3 0.0-0.5 [facility] BASO # 0.0 K/mm3 0.0-0.2 [facility] ID Date Data Source [id number] 03/18/2020 09:56:00 AM EST [facility] Name Value Range Interpretation Code Description Data Sejal rce(s) Supporting Document(s) SARS COV2 TRP DETECTED [facility] This lab was ordered by [facility] and reported by [facility]. ID Date Data Source [id number] 03/18/2020 11:47:00 AM EST [facility] TSYSORDER [id number] Results called to BENOITIain on 03/18/20-1146 byMEERA. Name Value Range Interpretation Code Description Data Sejal rce(s) Supporting Document(s) Adenovirus Not Detected Detected Not [facility] ospital Coronavirus 229E Not Detected Detected Not [facility] Coronavirus HKU1 Not Detected Detected Not [facility] Coronavirus NL63 Not Detected Detected Not [facility] Coronavirus OC43 Not Detected Detected Not [facility] Sars Cov 2 DETECTED Detected Not [facility] Human Metapneumovirus Not Detected Detected [facility] Human Rhinovirus Not Detected Detected Not [facility] Influenza A Not Detected Detected [facility] Influenza B Not Detected Detected Not [facility] Parainfluenza Virus 1 Not Detected Detected Not [facility] Parainfluenza Virus 2 Not Detected Detected Not [facility] Parainfluenza Virus 3 Not Detected Detected Not [facility] Parainfluenza Virus 4 Not Detected Detected Not [facility] Respiratory Syncytial Virus Not Detected Detected Not [facility] Bordetella parapertus (GC9115) Not Detected Detected Not [facility] Bordetella pertussis (ptxP) Not Detected Detected Not [facility] Chlamydia pneumoniae Not Detected Detected Not [facility] Mycoplasma pneumoniae Not Detected Detected Not [facility] The Above results have been determined b y using the [employer] system.[employer] is an automated in vitro diagnostic system thatutilizes nested multiplex Polymerase Chain Reaction (PCR)and high-resolution melting analysis to detect and identifymultiple nucleic acid targets from clinical specimens. ID Date Data Source [id number] 03/16/2020 07:13:00 PM EST [facility] Patient: ELVA DODD Rep ort - [facility].VisitID: [id number] [place] [address] [phone], MRegistration Date/Time: 03/16/2020 18:40 Weight:121.5 kg (S). [...] rce(s) Supporting Document(s) ID Date Data Source [id number] 03/12/2020 12:00:00 AM EST [facility] Name Value Range Interpretation Code Description Data Sejal rce(s) Supporting Document(s) SARS coronavirus 2 Ag Negative [facility] This lab was [facility] by [facility] and reported by [facility]. ID Date Data Source [id number] 02/24/2020 12:05:00 PM EST [facility] Name Value Range Interpretation Code Description Data Sejal rce(s) Supporting Document(s) SARS coronavirus 2 RNA [facility] This lab was ordered by [facility] nd reported by [facility]. ID Date Data Source [id number] 02/27/2020 04:10:00 PM EST [facility] Name Value Range Interpretation Code Description Data Sejal rce(s) Supporting Document(s) SARS COV2 [facility] Not Detected Not Detected [facility] This nucleic acid amplification test was developed [...] SARS-CoV-2 virusand/or diagnosis of COVID-19 infection under tnoxqla589(b)(1) of the Act, 21 U.S.C. 360bbb-3(b) (1), [...] negative(not detected) result in this assay.Performed at: [email or web address] [employer] [facility], [place], [place] [id number] Director: Meena cM PhD, Phone: [phone] ID Date Data Source [id number] 02/27/2020 04:05:00 PM EST [facility] Name Value Range Interpretation Code Description Data Sejal rce(s) Supporting Document(s) SARS-CoV-2, ERWIN Not Detected Not Detected [facility] This nucleic acid amplification test was developed and its performancecharacteristics determined by [employer]. Nucleic acidamplification tests include PCR and TMA. [...] in this assay. ID Date Data Source [id number] 01/31/2020 11:15:00 AM EST [facility] Name Value Range Interpretation Code Description Data [facility] rce(s) Supporting Document(s) SARS coronavirus 2 RNA [facility] This lab was ordered by [facility] and reported by [facility]. ID Date Data Source [id number] 10/04/2019 09:02:00 AM EDT [facility] [...] rce(s) Supporting Document(s) ID Date Data Source [id number] 10/05/2019 12:09:00 PM EDT [facility] Name Value Range Interpretation Code Description Data [facility] rce(s) Supporting Document(s) TESTOSTERONE, SERUM 268 ng/dL 264-416 [facility] Adult male reference interval is based o n a population ofhealthy nonobese males (BMI <30) between 19 and 39 yearsold. Maddison et.al. JCEM 2017,102;9821-5934. PMID:[id number].Performed at: - [facility] [id number] Director: Catherine Cleveland MD, Phone: [phone] ID Date Data Source [id number] 10/05/2019 12:05:00 PM EDT [facility] Name Value Range Interpretation Code Description Data Sejal rce(s) Supporting Document(s) Testosterone, Serum 268 ng/dL [id number] [facility] Adult male reference interval is based o n a population ofhealthy nonobese males (BMI <30) between 19 and 39 years old.radha Washburn.al. JCEM 2017,102;8340-6472. PMID: [id number]. ID Date Data Source [id number] 10/04/2019 08:51:00 AM EDT [facility] FAX [phone] Name Value Range Interpretation Code Description Data Sejal rce(s) Supporting Document(s) PSA 0.56 ng/mL 0.0-4.0 [facility] THIS ASSAY WAS PERFORMED ON THE [employer] USINGTHE B- GALACTOSIDASE/CRPG METHODOLOGY. THE PSA IS NOT AN ABSOLUTE TEST FOR MALIGNANCY. IT SHOULD BEUSED IN CONJUNCTION WITH INFORMATION AVAILABLE FROM THECLINICAL EVALUATION AND OTHER DIAGNOSTIC PROCEDURES. VALUES OBTAINED WITH DIFFERENT ASSAY METHODS CANNOT BE USEDINTERCHANGEABLY. ID Date Data Source [id number] 10/04/2019 08:51:00 AM EDT [facility] FAX [phone] Name Value Range Interpretation Code Description Data Sejal rce(s) Supporting Document(s) TSH 2.65 uIU/mL 0.36-3.74 [facility] ID Date Data Source [id number] 10/04/2019 08:39:00 AM EDT [facility] [phone] Name Value Range Interpretation Code Description Data Sejal rce(s) Supporting Document(s) CHOLESTEROL 228 mg/dL 0-200 [facility] TRIGLYCERIDES 134 mg/dL 0-150 [facility] LDL CHOLESTEROL 116 mg/dL 0-100 [facility] HDL CHOLESTEROL 85 mg/dL 40-60 H [facility] CHOL/HDL RATIO 2.7 0.0-5.0 [facility] ID Date Data Source [id number] 10/04/2019 08:39:00 AM EDT [facility] [phone] Name Value Range Interpretation Code Description Data Sejal rce(s) Supporting Document(s) GLUCOSE 98 mg/dL 74-106 [facility] BLOOD UREA NITROGEN 10 mg/dL 7-18 [facility] CREATININE 1.1 mg/dL 0.7-1.3 [facility] SODIUM 137 mmol/L 136-145 [facility] POTASSIUM 4.6 mmol/L 3.5-5.1 [facility] CHLORIDE 101 mmol/L 98-107 [facility] CO2 31 mmol/L 21-32 [facility] CALCIUM 8.9 mg/dL 8.5-10.1 [facility] ANION GAP 5.0 mmol/L 5-12 [facility] GLOMERULAR FILTRATION RATE 69 mL/min [facility] GFR IS CALCULATED IN mL/min/1.73m2 TEMO L FUNCTION: >90MILDLY DECREASED: 60-89MILDY TO MODERATELY DECREASED: 45-59 MODERATELY TO SEVERELY DECREASED: 30-44SEVERELY DECREASED: 15-29RENAL FAILURE: <15 AST 28 U/L 15-37 [facility] ALT 47 U/L 12-78 [facility] ALKALINE PHOSPHATASE 63 U/L 46-116 [facility] TOTAL BILIRUBIN 0.6 mg/dL 0.2-1.0 [facility] TOTAL PROTEIN 7.2 g/dl 6.4-8.2 [facility] ALBUMIN 3.8 gm/dL 3.4-5.0 [facility] ID Date Data Source [id number] 10/04/2019 08:31:00 AM EDT [facility] FAX [phone] Name Value Range Interpretation Code Description Data Sejal rce(s) Supporting Document(s) ESTIMATED AVERAGE GLUCOSE 105.4 mg/dL [facility] ID Date Data Source [id number] 10/04/2019 08:31:00 AM EDT [facility] FAX [phone] Name Value Range Interpretation Code Description Data Sejal rce(s) Supporting Document(s) HGBA1C 5.3 % 3.8-5.6 [facility] Diabetic > or = to 6.5%Prediabetes 5.7-6 .4%Normal <5.7 ID Date Data Source [id number] 10/04/2019 08:10:00 AM EDT [facility] FAX [phone] Name Value Range Interpretation Code Description Data Sejal rce(s) Supporting Document(s) WHITE BLOOD COUNT 4.6 K/mm3 4.0-10.0 [facility] al RED BLOOD COUNT 4.67 M/mm3 4.50-6.00 [facility] HEMOGLOBIN 15.4 gm/dL 14.0-18.0 [facility] HEMATOCRIT 44.3 % 42.0-54.0 [facility] MEAN CELL VOLUME 94.9 fl 80-96 [facility] MEAN CORPUSCULAR HEMOGLOBIN 33.0 pg 27.0-31.0 H [facility] MEAN CORPUSCULAR HGB CONC 34.8 g/dl 32.0-36.0 [facility] RED CELL DISTRIBUTION WIDTH 13.3 % 10.0-14.5 [facility] PLATELET COUNT 201 K/mm3 172-450 [facility] ID Date Data Source [id number] 04/05/2019 07:21:35 PM EST [facility], PCName: Elva Pizarro: 1Provider: Angelica [...] pain; SONNY = N; Verified Transmission to [employer] [facility]; Last Updated By: Terence Weller; 04/05/2019 10:26:47 AM 2. X-Ray I Ankle - 3 views (XRays were ordered, obtained and interpreted today in the office. Indication: pain/dysfunction.); Status:Complete; Done: [id number] Perform:SOS22; Due:[id number]; Last Updated By:Leena Coyle; 04/05/2019 9:45:40 AM;Ordered; For:Right ankle pain; Ordered By:Efren Leslie;Weight Bearing Status : Weight bearingLaterality: : Right 3. DME (SOS) Supply(s) Diagnostic Diagnostic Status: Complete Done: [id number] Ordered;For: Achilles tendinitis, Right ankle pain; Ordered By: Efren Leslie Performed: Due: [id number]; Last Updated By: Greta Jason; 04/05/2019 10:25:40 [...] rce(s) Supporting Document(s) ID Date Data Source [id number] 03/03/2019 10:34:00 AM EST [facility] DATE OF EXAMINATION: 03/03/2019 10:03 EST [...] co mpleted Patient has never smoked MEDENT ([facility], [facility]) Smoking 08/14/2019 12:00:00 AM EDT Patient has never smoked co mpleted Patient has never smoked MEDENT ([facility], ) Vital Signs ID Date Data Source UNK Name Value Range Interpretation Code Description Data Source(s) Body mass index (BMI) [Ratio] 35.6 kg/m2 35.6 k g/m2 [facility] ([facility], [facility]) Body height 73 [in_i] 73 [in_i] [facility] ([facility], [facility]) 6'1" Body weight 270.00 [lb_av] 270.00 [lb_av] MEDEN T ([facility], [facility]) Body temperature 98.6 [degF] 98.6 [degF] [facility] ([facility], [facility]) Oxygen saturation in Arterial blood by Pulse oximetry 95 % 95 % [facility] ([facility], [facility]) Respiratory rate 14 /min 14 /min MED[facility] ( [facility], [facility]) Heart rate 94 /min 94 /min MED[facility] ([facility], [facility]) Diastolic blood pressure 91 mm[Hg] 91 mm[Hg] MEDENT ([facility], [facility]) Systolic blood pressure 135 mm[Hg] 135 mm[Hg] M EDENT ([facility], [facility]) Body height 73 [in_i] 73 [in_i] eCW1 ([facility]) Body weight 270 [lb_av] 270 [lb_av] eCW1 ([facility]) Body mass index (BMI) [Ratio] 35.62 kg/m2 35.62 kg/m2 eCW1 ([facility]) Body temperature 98.3 [degF] 98.3 [degF] eCW1 ( [facility]) Heart rate 79 /min 79 /min eCW1 ([facility]) Respiratory rate 18 /min 18 /min eCW1 ([facility]) Oxygen saturation in Arterial blood by Pulse oximetry 98 % 98 % eCW1 ([facility]) Body temperature 97.9 [degF] 97.9 [degF] MEDENT ([facility]) Body weight 128.822 kg 128.822 kg [facility] ([facility]) Body mass index (BMI) [Ratio] 37.5 kg/m2 37.5 k g/m2 [facility] ([facility]) Heart rate 87 /min 87 /min [facility] ([facility]) Diastolic blood pressure 87 mm[Hg] 87 mm[Hg] [facility] ([facility]) Systolic blood pressure 132 mm[Hg] 132 mm[Hg] [facility] Body weight 284.00 [lb_av] 284.00 [lb_av] MEDEN T ([facility]) Body height 73 [in_i] 73 [in_i] [facility] ([facility]) 6'1" Body weight 127.008 kg 127.008 kg [facility] ([facility]) Body mass index (BMI) [Ratio] 36.9 kg/m2 36.9 k g/m2 [facility] ([facility]) Body weight 280.00 [lb_av] 280.00 [lb_av] [facility] Body height 73 [in_i] 73 [in_i] [facility] ([facility]) 6'1" Body temperature 97.4 [degF] 97.4 [degF] [facility] ([facility]) Oxygen saturation in Arterial blood by Pulse oximetry 97 % 97 % [facility] ([facility]) Room Air Heart rate 80 /min 80 /min [facility] ([facility]) Diastolic blood pressure 94 mm[Hg] 94 mm[Hg] [facility] ([facility]) Systolic blood pressure 142 mm[Hg] 142 mm[Hg] [facility] ([facility]) Body height 73 [in_i] 73 [in_i] [facility] ([facility]) 6'1" Oxygen saturation in Arterial blood by Pulse oximetry 96 % 96 % [facility] ([facility]) Heart rate 69 /min 69 /min [facility] ([facility]) Diastolic blood pressure 88 mm[Hg] 88 mm[Hg] [facility] ([facility]) Systolic blood pressure 128 mm[Hg] 128 mm[Hg] [facility] ([facility]) Body weight 125.250 kg 125.250 kg [facility] ([facility]) Body mass index (BMI) [Ratio] 36.4 kg/m2 36.4 k g/m2 [facility] Body weight 276.12 [lb_av] 276.12 [lb_av] LAURENCE Bailey ([facility])
[2020-03-21] MEDS ORDERED: VENL37.598 PO (12:57)
[2020-03-21] MEDS ORDERED: METH4PACK PO (12:57)
[2020-03-21] MEDS ORDERED: SYMB80INH INH (12:57)
[2020-03-21 13:04] LABS: BASO % 0.2 % (0.0-1.0); HEMATOCRIT 42.2 % (42.0-52.0); HEMOGLOBIN 14.9 g/dl (13.5-17.5); LYMPH # 0.4 10^3/uL (1.5-5.0); LYMPH % 6.8 % (24.0-44.0); MEAN CORPUSCULAR HGB CONC 35.3 g/dl (32.0-36.5); MEAN CORPUSCULAR VOLUME 90.6 fl (80.0-96.0); MONO # 0.2 10^3/uL (0.0-0.8); MONO % 2.6 % (0.0-5.0); NEUTROPHILS # 5.6 10^3/uL (1.5-8.5); NEUTROPHILS % 89.6 % (36.0-66.0); PLATELET COUNT, AUTOMATED 153 10^3/uL (150-450); RED BLOOD COUNT 4.66 10^6/uL (4.30-6.10); WHITE BLOOD COUNT 6.2 10^3/uL (4.0-10.0)
--- NOTE | 2020-03-21 13:07 | REP ---
INDICATION: Coronavirus workup. COMPARISON: 07/05/2017. TECHNIQUE: SINGLE PORTABLE AP VIEW OF THE CHEST WAS PERFORMED. FINDINGS: Diffuse left lung infiltrates are present. There are subtle peripheral right lung infiltrates present. Heart mediastinum are unchanged. There is mild elevation of the right hemidiaphragm. IMPRESSION: Diffuse bilateral infiltrates left greater than right. <Electronically signed by Kota Ness > 03/21/20 [id number]
[2020-03-21 13:23] LABS: D-DIMER QUANT 2242.68 ng/ml (<500)
[2020-03-21 13:49] LABS: ALBUMIN 2.9 GM/DL (3.2-5.2); ALT/SGPT 49 U/L (12-78); BILIRUBIN,TOTAL 0.7 MG/DL (0.2-1.0); BLOOD UREA NITROGEN 19 MG/DL (7-18); CALCIUM LEVEL 8.1 MG/DL (8.5-10.1); CARBON DIOXIDE LEVEL 26 MEQ/L (21-32); CHLORIDE LEVEL 94 MEQ/L (98-107); FERRITIN 2481 NG/ML (26-388); GLOMERULAR FILTRATION RATE > 60.0 (>56); GLUCOSE, FASTING 126 MG/DL (70-100); LDH LACTATE DEHYDROGENASE 576 U/L (87-241); POTASSIUM SERUM 3.8 MEQ/L (3.5-5.1); SODIUM LEVEL 127 MEQ/L (136-145); TOTAL PROTEIN 6.4 GM/DL (6.4-8.2); TROPONIN I < 0.02 NG/ML (< 0.10)
--- NOTE | 2020-03-21 14:21 | ECGEPIP ---
[facility] - ED Test Date: 2020-03-21 Pat Name: ELVA DODD Department: Room: - Gender: Male [employer]: lora : 1960 Requested By: Jose Haynes Order Number: [id number] Reading MD: Pantera Balderas Measurements Intervals [place] Rate: 92 P: 25 MS: 154 QRS: 29 QRSD: 96 T: 5 QT: 314 QTc: 389 Interpretive Statements SINUS RHYTHM Similar to tracing done 07-07-17 Electronically Signed on 03-21-2020 14:21:24 EST by Pantera Balderas
[2020-03-21] MEDS ORDERED: ALBUTEROL 90 MCG/ACT 8GM HFA INHALER INH PRN (14:45)
--- NOTE | 2020-03-21 14:48 | HPEPDOC ---
[facility] Medical History & Physical Date of Admission Mar 21, 2020 Date of Service: Mar 21, 2020 History and Physical CHIEF COMPLAINT: fatigue, malaise HISTORY OF PRESENT ILLNESS: 59 year old male with past medical history of hypertension, asthma and hyperlipidemia, presents to ED for worsening cough, fatigue, malaise and fevers. He states his symptoms began 03/11/20, and tested positive for COVID-19 on 03/15/20. Denies chest pain, headaches, abdominal pain, nausea, vomiting diarrhea. PAST MEDICAL HISTORY: #HTN #asthma #HLD ALLERGIES: Please see below. REVIEW OF SYSTEMS: Negative except as per HPI. HOME MEDICATIONS: Please see below. PHYSICAL EXAMINATION: VITAL SIGNS: See below General: NAD HEENT: NC/AT Lungs: CTA B/L, diminished breath sounds Heart: +S1S2 Abd: soft, NT, +BS Ext: no edema LABORATORY DATA: See below. MICROBIOLOGY: Please see below. A/P: 59yo male for several day history of worsening fever, cough and fatigue since 03/11/20. Tested positive for COVID-19 on 03/15/20. Found to be hypoxic in E D. PMHx HTN, asthma, HLD. #COVID-19 PNA with acute hypoxic respiratory failure - dexamethasone 6mg day #1 - remdesevir day #1 - IS, inhalers, tessalon - f/u procalcitonin - f/u inflammatory markers - supplemental oxygen to goal>90% - prophylactic dosing lovenox given ddimer<1000 - teds/sequentials #asthma - does not appear to be in exacerbation of asthma at this time - continue to monitor #HTN - continue metoprolol #HLD - continue pravastatin #anxiety/depression - continue venlafaxine #GERD - continue omprazole 20 daily #DVT prophylaxis - as per above - loevnox/mechanical Vital Signs Vital Signs Date Time Temp Pulse Resp B/P (MAP) Pulse Ox O2 Delivery O2 Flow Rate FiO2 03/21/20 13:34 Nasal Cannula 5.0 03/21/20 13:21 104.1 90 20 119/71 84 Laboratory Data Labs 24H Laboratory Tests 2 03/21/20 12:52: Immature Granulocyte % (Auto) 0.8, Neutrophils (%) (Auto) 89.6H, Lymphocytes (%) (Auto) 6.8L, Monocytes (%) (Auto) 2.6, Eosinophils (%) (Auto) 0.0, Basophils (%) (Auto) 0.2, Neutrophils # (Auto) 5.6, Lymphocytes # (Auto) 0.4L, Monocytes # (Auto) 0.2, Eosinophils # (Auto) 0.0, Basophils # (Auto) 0.0, Nucleated Red Blood Cells % (auto) 0.0, D-Dimer, Quantitative 2242.68H, Anion Gap 7L, Glomerular Filtration Rate > 60.0, Lactic Acid Level 2.1*H, Calcium Level 8.1L, Ferritin 2481H, Total Bilirubin 0.7, Aspartate Amino Transf (AST/SGOT) 54H, Alanine Aminotransferase (ALT/SGPT) 49, Alkaline Phosphatase 59, Lactate Dehydrogenase 576H, Troponin I < 0.02, C-Reactive Protein, Quantitative 11.70H, Total Protein 6.4, Albumin 2.9L, Albumin/Globulin Ratio 0.8 03/21/20 13:13: POC pH (Misc Panel) 7.488H, POC Base Excess (Misc Panel) 0.0, POC Saturated Percent O2 (Misc) 94L, POC pO2 (Misc Panel) 64.0L, POC pCO2 (Misc Panel) 30.8L, POC HCO3 (Misc Panel) 23.4, POC Total CO2 (Misc Panel) 24.0 CBC/BMP Laboratory Tests 03/21/20 12:52 Microbiology Microbiology 03/21/20 Blood Culture, Received Pending 03/21/20 Blood Culture, Received Pending Home Medications Scheduled Ascorbic Acid (Vitamin C) 250 Mg Tablet, 250 MG PO DAILY Budesonide/Formoterol (Symbicort 80-4.5 Mcg Inhaler) 6.9 Gm Hfa.aer.ad, 2 PUFFS INH BID Dexamethasone (Dexamethasone) 2 Mg Tablet, 1 TAB PO DAILY Metoprolol Succinate (Toprol Xl) 25 Mg Tab, 25 MG PO BID Omeprazole (Omeprazole) 20 Mg Capsule.dr, 20 MG PO DAILY Pravastatin Sodium (Pravachol) 40 Mg Tab, 40 MG PO DAILY Venlafaxine HCl (Venlafaxine HCl ER) 37.5 Mg Cap.er.24h, 37.5 MG PO DAILY Zinc Sulfate (Zinc Sulfate) 220 Mg Capsule, 220 MG PO DAILY@1200 Scheduled PRN Albuterol Sulfate (Ventolin Hfa) 18 Gm Hfa.aer.ad, 2 PUFFS INH QID PRN for SHORTNESS OF BREATH Allergies Coded Allergies: cephalexin (Verified Allergy, Intermediate, HIVES, 01/24/20) ENVIROMENTAL (Verified Allergy, Unknown, 01/24/20) A-FIB/CHADSVASC A-FIB History Current/History of A-Fib/PAF?: No ELVA VERNON MD Mar 21, 2020 14:48
--- OUTSIDE RECORDS SUMMARY | 2020-03-21 15:23 | CCD ---
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 Name Role Phone Axel Chaudhari MD Unavailable [...] Unavailable Pasquale Georges Moid MD Unavailable Unavailable Paqsuale Georges Moid MD Unavailable Unavailable Pasquale Georges [...] Unavailable Unavailable Elvia Leslie MD Unavailable Unavailable Evlia Leslie MD Unavailable Unavailable Elvia Leslie MD [...] Unavailable Elvia Leslie MD Unavailable Unavailable Elvia Lelsie MD Unavailable Unavailable Elvia Leslie MD Unavailable Unavailable Elvia Leslie MD Unavailable Unavailable Elvia Leslie MD Unavailable Unavailable Elvia Leslie MD Unavailable Unavailable Elvia Leslie MD Unavailable Unavailable Elvia Leslie MD Unavailable Unavailable Elvia Leslie MD Unavailable Unavailable lEvia Leslie MD Unavailable Unavailable Elvia Leslie MD [...] George MD Unavailable Unavailable Hernandez, A Jazmin HEALTH CARE LEGAL ASSISTANT Unavailable Unavailable Hernandez, A Jazmin HEALTH CARE LEGAL ASSISTANT Unavailable Unavailable Hernandez, A Jazmin HEALTH CARE LEGAL ASSISTANT Unavailable Unavailable Hernandez, A Jazmin HEALTH CARE LEGAL ASSISTANT Unavailable Unavailable Hernnadez, A Jazmin HEALTH CARE LEGAL ASSISTANT Unavailable Unavailable Hernandez, A Jazmin HEALTH CARE LEGAL ASSISTANT Unavailable Unavailable Hernandez, A Jazmin HEALTH CARE LEGAL ASSISTANT Unavailable Unavailable Hernandez, A Jazmin HEALTH CARE LEGAL ASSISTANT Unavailable Unavailable Hernandez, A Jazmin HEALTH CARE LEGAL ASSISTANT Unavailable Unavailable Hernandez, A Jazmin HEALTH CARE LEGAL ASSISTANT Unavailable Unavailable Hernandez, A Jazmin HEALTH CARE LEGAL ASSISTANT Unavailable Unavailable Hernandez, A Jazmin HEALTH CARE LEGAL ASSISTANT Unavailable Unavailable Hernandez, A Jazmin HEALTH CARE LEGAL ASSISTANT Unavailable Unavailable Hernandez, A Jazmin HEALTH CARE LEGAL ASSISTANT Unavailable Unavailable Hernandez, A Jazmin HEALTH CARE LEGAL ASSISTANT Unavailable Unavailable Hernandez, A Jazmin HEALTH CARE LEGAL ASSISTANT Unavailable Unavailable Hernandez, A Jazmin HEALTH CARE LEGAL ASSISTANT Unavailable Unavailable Hernandez, A Jazmin HEALTH CARE LEGAL ASSISTANT Unavailable Unavailable Hernandez, A Jazmin HEALTH CARE LEGAL ASSISTANT Unavailable Unavailable Hernandez, A Jazmin HEALTH CARE LEGAL ASSISTANT Unavailable Unavailable Hernandez, A Jazmin HEALTH CARE LEGAL ASSISTANT Unavailable Unavailable Hernandez, A Jazmin HEALTH CARE LEGAL ASSISTANT Unavailable Unavailable Hernandez, A Jazmin HEALTH CARE LEGAL ASSISTANT Unavailable Unavailable Hernandez, A Jazmin HEALTH CARE LEGAL ASSISTANT Unavailable Unavailable Hernandez, A Jazmin HEALTH CARE LEGAL ASSISTANT Unavailable Unavailable Hernandez, A Jazmin HEALTH CARE LEGAL ASSISTANT Unavailable Unavailable Hernandez, A Jazmin HEALTH CARE LEGAL ASSISTANT Unavailable Unavailable Hernandez, A Jazmin HEALTH CARE LEGAL ASSISTANT Unavailable Unavailable Hernandez, A Jazmin HEALTH CARE LEGAL ASSISTANT Unavailable Unavailable Hernandez, A Jazmin HEALTH CARE LEGAL ASSISTANT Unavailable Unavailable Hernandez, A Jazmin HEALTH CARE LEGAL ASSISTANT Unavailable Unavailable Hernandez, A Jazmin HEALTH CARE LEGAL ASSISTANT Unavailable Unavailable Hernandez, A Jazmin HEALTH CARE LEGAL ASSISTANT Unavailable Unavailable Hernandez, A Jazmin HEALTH CARE LEGAL ASSISTANT Unavailable Unavailable Hernandez, A Jazmin HEALTH CARE LEGAL ASSISTANT Unavailable Unavailable Hernandez, A Jazmin HEALTH CARE LEGAL ASSISTANT Unavailable Unavailable Hernandez, A Jazmin HEALTH CARE LEGAL ASSISTANT Unavailable Unavailable Hernandez, A Jazmin HEALTH CARE LEGAL ASSISTANT Unavailable Unavailable Hernandez, A Jazmin HEALTH CARE LEGAL ASSISTANT Unavailable Unavailable Hernandez, A Jazmin HEALTH CARE LEGAL ASSISTANT Unavailable Unavailable Hernandez, A Jazmin HEALTH CARE LEGAL ASSISTANT Unavailable Unavailable Hernandez, A Jazmin HEALTH CARE LEGAL ASSISTANT Unavailable Unavailable Hernandez, A Jazmin HEALTH CARE LEGAL ASSISTANT Unavailable Unavailable Hernandez, A Jazmin HEALTH CARE LEGAL ASSISTANT Unavailable [facility] Unavailable Unavailable Georges, [...] Unavailable Pasquale Georges Moid Unavailable Unavailable Andre Geroges MD Unavailable Unavailable Andre Georges MD Unavailable Unavailable Andre Georges MD Unavailable Unavailable Lindy Goergesd Unavailable Unavailable Lindy Georgesd Unavailable Unavailable Andre [...] is protected by Article 27-F of the [facility] Public Health law. If you continue you may have access to information: Regarding HIV / AIDS; Provided by facilities licensed or operated by the [facility] Office of Mental Health; or Provided by the [facility] Office for People With Developmental Disabilities. If such information is present, then the following [place] State mandated warning applies: This information has [...] law may result in a fine or [place] health care facility sentence or both. A general authorization for the release of medical or other information is NOT sufficient authorization for further disc losure. Family History Family Member Name Family Member Gender Family Member Status Date o f Status Description Data Source(s) Unknown Female Problem MEDENT ([facility]) Unknown Female Problem MEDENT ([facility]) Unknown Female Problem MEDENT ([facility]) Encounters Encounter Providers Location Date Indications Data Source(s ) Outpatient Attender: EVERT DOUGHERTY PAConsultant: [facility] 03/18/2020 11:10:00 AM [facility] Emergency Attender: EVERT Valentino: Александр Georges MD EMERGENCY ROOM- EMERGENCY ROOM 03/18/2020 10:49:00 AM EST - 03/18/2020 10:49:00 AM [facility] Patient discharged. Emergency Attender: GEORGE Valentino: Sumi pacheco MD 03/16/2020 06:47:00 PM EST - 03/16/2020 07:00:00 PM [facility] pital Patient discharged. Outpatient Attender: RAFIA strong 03/12/2020 07:05:00 AM EST MEDENT ([facility]) Outpatient Attender: Jazmin Ng FNPReferrer: Sumi Georges MD EMERGENCY ROOM- REFERRED LABS (DROP OFFS) 02/24/2020 12:49:00 PM EST - 02/24/2020 12:49:00 PM [facility] Outpatient Attender: Jazmin RIVERA 02/24/2020 11:31 :00 AM [facility] Outpatient [facility] 02/24/2020 12:00:00 AM EST eCW1 ([facility]) Outpatient Attender: Adán Chaudhari MD Main Office 01/04/2020 12:00:00 PM EST MEDENT ([facility]) Outpatient Attender: Sumi Sanchezer: Sumi pacheco MD EMERGENCY ROOM-LABOTHPROV 10/04/2019 07:42:00 AM EDT - 10/04/2019 07:42:00 AM [facility] Outpatient Attender: Efren Leslie MDReferrer: Sumi Georges MD 04/05/2019 07:21:35 PM EST [facility] Recurring Patient Referrer: Sumi Georges MD 04/05/2019 09:17: 39 AM EST [facility] Outpatient Attender: Don Aguiar MD Physical Therap y 03/10/2019 10:00:00 AM EST MEDENT ([facility]) Outpatient Attender: Sumi BAKEReferrer: Sumi Georges MD 03/03/2019 09:57:00 AM EST - 03/03/2019 09:57:00 AM [facility] Outpatient Attender: Norbert Tracy/Nasrin/Raymundo/Elvia eicedrick 02/08/2019 08:45:00 AM EST MEDENT ([facility] Emergency Attender: Herman Byrnes RPA-CReferrer: Sumi Georges MD EMERGENCY ROOM-ER 07/03/2017 03:44:00 PM EDT - 07/03/2017 06:15:00 PM [facility] Outpatient Attender: Sumi Gridererrer: Sumi pacheco MD EMERGENCY ROOM-LABOTHPROV 05/18/2017 07:51:00 AM EDT - 05/18/2017 07:51:00 AM [facility] Outpatient Attender: Sumi Georges MD EMERGENCY ROOM-LABOTHPROV 12/23/2015 08:44:00 AM EDT - 12/23/2015 08:44:00 AM [facility] Immunizations Vaccine Date Status Description Data Source(s) INFLUENZA VIRUS VACCINE QUADRIVALENT 2019- (6 MOS AN D UP) 12/27/2019 12:00:00 AM EDT [facility] Medications Medication Brand Name Start Date [...] 12:00:00 AM EST ORAL active MEDENT ( [facility]) 75 mg 03/12/2020 12:00:00 [...] Kit 01/04/2020 12:00:00 AM EST active [facility] 17.5-3.13-1.6 gram 01/04/2020 12:00:00 AM EST [...] 12:00:00 AM EST RESPIRATORY active MEDENT ( [facility], ) 75 mg 03/22/2019 12:00:00 [...] type / Coverage type Policy ID Covered green party ID Covered green party's relationship to ruiz Policy Ruiz Plan Information [facility] [id number] WI2 [id number] [facility] [id number] SPO [id number] [facility] [id number] SPO [id number] [employer] [id number] SPO [id number] [employer] [id number] SPO [id number] R F [id number] SPOUSE [id number] ANSI-Commercial [id number] ANSI-Commercial [id number] [facility] F [id number] SPOUSE [id number] [facility] Commercial [id number] Family Dependent Y1 [id number] [facility] CLAIM ADMIN WORK COMP [id number] SP [id number] [employer] [id number] [facility] [id number] [employer] (WC) Workers Compensation [id number] [facility] [id number] ANSI-Commercial [id number] ANSI-Commercial [id number] ANSI-Commercial [id number] ANSI-Commercial [id number] ANSI-Commercial [id number] ANSI-Commercial [id number] [facility] [id number] ANSI-Commercial [id number] ANSI-Commercial [id number] ANSI-Commercial [id number] ANSI-Commercial [id number] OTHER WORKERS COMPENSATION [id number] SP [id number] [facility] [id number] [facility] [id number] [facility] INSURANCE FUND [id number] SP [id number] ANSI-Commercial [id number] ANSI-Commercial [id number] ANSI-Commercial [id number] ANSI-Commercial [id number] ANSI-Commercial [id number] ANSI-Commercial [id number] ANSI-Commercial [id number] ANSI-Commercial [id number] [employer] (pr) Medigap Part B [id number] Family Dependent [id number] State Ins Fund () Workers Compensation [id number] Self [id number] State Ins Fund () Workers Compensation [id number] Self [id number] Special Funds-Dew () Workers Compensation [id number] Self [id number] [employer] PPO O [id number] S [id number] SPECIAL FUNDS O [id number] S [id number] [employer] (pr) Commercial [id number] Family Dependent [id number] State Ins Fund () Workers Compensation [id number] Self [id number] STATE INSURANCE FUND [id number] S [id number] SPECIAL FUNDS CONSERVATION [id number] S [id number] [place] [employer] [id number] S [id number] [employer] [id number] [place]2 [id number] STATE INSURANCE FUND WCB#[id number] SP [id number] [employer] [id number] [place]2 [id number] State Ins Fund () Workers Compensation Self Special Funds-Dew (WC) Workers Compensation Self State Ins Fund () Workers Compensation Self [employer] (pr) Commercial Family Dependent [facility] [id number] SP [id number] [facility] DIV [id number] SP [id number] SPECIAL FUNDS P [id number] S [id number] [facility] [id number] SP [id number] [facility] DIV [id number] SP [id number] STATE INSURANCE FUND [id number] SP [id number] STATE INSURANCE FUND [id number] SP [id number] SPECIAL FUNDS CONSERVATION-DEW [id number] SP [id number] Problems, Conditions, and Diagnoses Code Display Name Description Problem Type Effective Dates Data Source(s) J30.2 448308536 Seasonal allergic rhinitis, 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 02/24/2020 12:00:00 AM EST eCW1 ([facility]) I10 [id number] Essential hypertension Problem 02/24/2020 12 :00:00 AM EST eCW1 ([facility]) [id number] Screening for malignant neoplasm of colo n Screening for malignant neoplasm of colon Problem 01/04/2020 12:00:00 AM EST MEDENT ([facility]) Z79.899 Other shelter (current) drug therapy 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) 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 THERAPY Diagnosis 03/18/2020 10:49:00 AM [facility] l Z79.51 longterm (current) use of inhaled stero ids SHELTER (CURRENT) USE OF INHALED STEROIDS Diagnosis 03/18/2020 10:49:00 AM [facility] l Z79.2 longterm (current) use of antibiotics L IRVING TERM (CURRENT) USE OF ANTIBIOTICS Diagnosis 03/18/2020 10:49:00 AM [facility] l U07.1 COVID-19 COVID-19 Diagnosis 03/18/2020 10:49:00 AM [facility] R50.9 Fever, unspecified FEVER, UNSPECIFIED Diagnosis 10:49:00 AM [facility] I10 Essential (primary) hypertension ESSENTIAL (PRIMARY) H YPERTENSION Diagnosis 03/16/2020 06:47:00 PM [facility] J45.909 Unspecified asthma, uncomplicated UNSPECIFIED THMA, UNCOMPLICATED Diagnosis 03/16/2020 06:47:00 PM [facility] M79.10 MYALGIA, UNSPECIFIED SITE MYALGIA, UNSPECIFIED SITE Di agnosis 03/16/2020 06:47:00 PM [facility] R53.83 Other fatigue OTHER FATIGUE Diagnosis 03/16/2020 06:47:00 PM [facility] R51.9 HEADACHE, UNSPECIFIED HEADACHE, UNSPECIFIED Diagnosis 02/24/2020 11:31:00 AM [facility] J30.2 Other seasonal allergic rhinitis OTHER SEASONAL ALLERGIC RHINITIS Diagnosis 02/24/2020 11:31:00 AM [facility] E05.90 Thyrotoxicosis, unspecified without thyr otoxic crisis or storm THYROTOXICOSIS, UNSP WITHOUT THYROTOXIC CRISIS OR Diagnosis 06/2019 07:42:00 AM [facility] E29.1 Testicular hypofunction TESTICULAR HYPOFUNCTION Diagno sis 10/04/2019 07:42:00 AM [facility] E78.00 PURE HYPERCHOLESTEROLEMIA, UNSPECIFIED P URE HYPERCHOLESTEROLEMIA, UNSPECIFIED Diagnosis 10/04/2019 07:42:00 AM [facility] l J98.01 Acute bronchospasm ACUTE BRONCHOSPASM Diagnosis 04/2019 09:57:00 AM [facility] Surgeries/Procedures Procedure Description Date Indications Data Source(s) COLONOSCOPY FLX DX W/WO COLLJ SPECIMENS 02/05/2020 12: 00:00 AM EST MEDENT ([facility]) Results ID Date Data Source [id number] 03/21/2020 11:43:00 AM EST [facility] Patient: ELVA DODD Observation Rep ort - [facility].VisitID: [id number] [place] [address] [phone], MRegistration Date/Time: 03/18/2020 09:32 Weight:122.4 kg (S). Height/Length:73 inches (S). BMI:35.6 FAMILY HISTORYNegative. No significant family medical history. (Electronically signed by Cindy Loco 03/19/2020 19:20) Addenda for ELVA DODD VisitID: [id number] Date: 03/18/2020 03/21/2020 11:25Wife of pt called [...] rce(s) Supporting Document(s) ID Date Data Source [id number] 03/19/2020 07:47:00 PM EST [facility] Patient: ELVA DODD Observation Rep ort - [facility].VisitID: [id number] [place] [address] [phone], MRegistration Date/Time: 03/18/2020 09:32 Weight:122.4 kg (S). Height/Length:73 inches (S). BMI:35.6 FAMILY HISTORYNegative. No significant family medical history. (Electronically signed by Cindy Loco 03/19/2020 19:20) Name Value Range Interpretation Code Description Data Sejal rce(s) Supporting Document(s) ID Date Data Source [id number] 03/18/2020 11:51:00 AM EST [facility] [...] rce(s) Supporting Document(s) ID Date Data Source [id number] 03/18/2020 12:31:00 PM EST [facility] TSYSORDER [id number] Name Value Range Interpretation Code Description Data Sejal rce(s) Supporting Document(s) ERYTHROCYTE SEDIMENTATION RATE 40 mm/hr 0-20 H [facility] ID Date Data Source [id number] 03/18/2020 12:24:00 PM EST [facility] TSYSORDER [id number] Name Value Range Interpretation Code Description Data Sejal rce(s) Supporting Document(s) FERRITIN 1240 ng/mL 26-388 H [facility] ID Date Data Source [id number] 03/18/2020 11:52:00 AM EST [facility] TSYSORDER [id number] Name Value Range Interpretation Code Description Data Sejal rce(s) Supporting Document(s) TROPONIN I < 0.017 ng/mL 0.0-0.056 [facility] ID Date Data Source [id number] 03/18/2020 11:51:00 AM EST [facility] TSYSORDER [id number] Name Value Range Interpretation Code Description Data Sejal rce(s) Supporting Document(s) PARTIAL THROMBOPLASTIN TIME 27.5 SECONDS 21.2-27.3 H [facility] ID Date Data Source [id number] 03/18/2020 11:51:00 AM EST [facility] TSYSORDER [id number] Name Value Range Interpretation Code Description Data Sejal rce(s) Supporting Document(s) PROTHROMBIN TIME (PATIENT) 9.9 SECONDS 9.1-11.6 [facility] INR 0.95 0.87-1.06 [facility] ID Date Data Source [id number] 03/18/2020 11:51:00 AM EST [facility] TSYSORDER [id number] Name Value Range Interpretation Code Description Data Sejal rce(s) Supporting Document(s) LACTIC ACID 1.3 mmol/L 0.4-2.0 [facility] ID Date Data Source [id number] 03/18/2020 11:50:00 AM EST [facility] TSYSORDER [id number] Name Value Range Interpretation Code Description Data Sejal rce(s) Supporting Document(s) C REACTIVE PROTEIN 37.0 mg/L 0.0-3.0 H [facility] dennis ID Date Data Source [id number] 03/18/2020 11:50:00 AM [facility] TSYSORDER [id number] Name Value Range Interpretation Code Description Data Sejal rce(s) Supporting Document(s) GLUCOSE 97 mg/dL 74-106 [facility] BLOOD UREA NITROGEN 15 mg/dL 7-18 [facility] ital CREATININE 1.10 mg/dL 0.7-1.3 [facility] SODIUM 130 mmol/L 136-145 L [facility] POTASSIUM 4.0 mmol/L 3.5-5.1 [facility] CHLORIDE 92 mmol/L 98-107 L [facility] CO2 27 mmol/L 21-32 [facility] CALCIUM 9.0 mg/dL 8.5-10.1 [facility] ANION GAP 11.0 mmol/L 5-12 [facility] GLOMERULAR FILTRATION RATE 69 mL/min [facility] GFR IS CALCULATED IN mL/min/1.73m2 TEMO L FUNCTION: >90MILDLY DECREASED: 60-89MILDY TO MODERATELY DECREASED: 45-59 MODERATELY TO SEVERELY DECREASED: 30-44SEVERELY DECREASED: 15-29RENAL FAILURE: <15 AST 48 U/L 15-37 H [facility] ALT 62 U/L 12-78 [facility] ALKALINE PHOSPHATASE 65 U/L 46-116 [facility] pital TOTAL BILIRUBIN 0.4 mg/dL 0.2-1.0 [facility] TOTAL PROTEIN 8.8 g/dl 6.4-8.2 H [facility] ALBUMIN 3.8 gm/dL 3.4-5.0 [facility] ID Date Data Source [id number] 03/18/2020 11:30:00 AM [facility] TSYSORDER [id number] Name Value Range Interpretation Code Description Data Sejal rce(s) Supporting Document(s) PH 7.39 7.31-7.41 [facility] VENOUS PCO2 46.8 mmHg 41-51 [facility] VENOUS PO2 29 mmHg 35-42 L [facility] VENOUS BLODD O2 SATURATION 36.0 % 68-77 L [facility] VENOUS BLOOD HCO3 27.6 meq/L 24.0-25.0 [facility] VENOUS BASE EXCESS 2.3 -3.0-3.0 [facility] VENOUS BLOOD CO2 29.1 mmol/L 23.0-32.0 [facility] ID Date Data Source [id number] 03/18/2020 11:27:00 AM [facility] l TSYSORDER [id number] Name Value Range Interpretation Code Description Data Sejal rce(s) Supporting Document(s) WHITE BLOOD COUNT 4.2 K/mm3 4.0-10.0 [facility] al RED BLOOD COUNT 5.21 M/mm3 4.50-6.00 [facility] HEMOGLOBIN 16.6 gm/dL 14.0-18.0 [facility] HEMATOCRIT 46.9 % 42.0-54.0 [facility] MEAN CELL VOLUME 90.0 fl 80-96 [facility] MEAN CORPUSCULAR HEMOGLOBIN 31.9 pg 27.0-31.0 H [facility] MEAN CORPUSCULAR HGB CONC 35.4 g/dl 32.0-36.0 [facility] RED CELL DISTRIBUTION WIDTH 12.6 % 10.0-14.5 [facility] PLATELET COUNT 161 K/mm3 172-450 L [facility] MEAN PLATELET VOLUME 10.0 fl 9.0-13.0 [facility] pital GRAN % 82.1 % 50-80.0 H [facility] IG% 0.5 % 0.0-0.2 H [facility] LYMPH % 10.5 % 25.0-50.0 L [facility] MONO % 6.7 % 2.0-10.0 [facility] EOS % 0.0 % 0-5.0 [facility] BASO % 0.2 % 0.0-2.0 [facility] GRAN # 3.4 K/mm3 2.0-8.00 [facility] IG# 0.0 K/mm3 0.0-0.2 [facility] LYMPH # 0.4 K/mm3 1.0-5.0 L [facility] MONO # 0.3 K/mm3 0.10-1.20 [facility] EOS # 0.0 K/mm3 0.0-0.5 [facility] BASO # 0.0 K/mm3 0.0-0.2 [facility] ID Date Data Source [id number] 03/18/2020 09:56:00 AM EST [facility] Name Value Range Interpretation Code Description Data Sejal rce(s) Supporting Document(s) SARS COV2 TRP DETECTED [facility] This lab was ordered by [facility] and reported by [facility]. ID Date Data Source [id number] 03/18/2020 11:47:00 AM EST [facility] TSYSORDER [id number] Results called to PABLOIain on 03/18/20-1146 byMEERA. Name Value Range Interpretation Code Description Data Sejal rce(s) Supporting Document(s) Adenovirus Not Detected Detected Not [facility]spital Coronavirus 229E Not Detected Detected Not [facility] Coronavirus HKU1 Not Detected Detected Not [facility] Coronavirus NL63 Not Detected Detected Not [facility] Coronavirus OC43 Not Detected Detected Not [facility] Sars Cov 2 DETECTED Detected Not [facility] Human Metapneumovirus Not Detected Detected [facility] Human Rhinovirus Not Detected Detected Not [facility] Influenza A Not Detected Detected [facility] Influenza B Not Detected Detected Not [facility] Parainfluenza Virus 1 Not Detected Detected Not [facility] Parainfluenza Virus 2 Not Detected Detected Not [facility] Parainfluenza Virus 3 Not Detected Detected Not [facility] Parainfluenza Virus 4 Not Detected Detected Not [facility] Respiratory Syncytial Virus Not Detected Detected Not [facility] Bordetella parapertus ([id number]) Not Detected Detected Not [facility] Bordetella pertussis (ptxP) Not Detected Detected Not [facility] Chlamydia pneumoniae Not Detected Detected Not [facility] Mycoplasma pneumoniae Not Detected Detected Not [facility] The Above results have been determined b y using the [employer] system.Film[employer] is an automated in vitro diagnostic system thatutilizes nested multiplex Polymerase Chain Reaction (PCR)and high-resolution melting analysis to detect and identifymultiple nucleic acid targets from clinical specimens. ID Date Data Source [id number] 03/16/2020 07:13:00 PM EST [facility] Patient: ELVA DODD Rep ort - [facility].VisitID: [id number] [place] [address] [phone], MRegistration Date/Time: 03/16/2020 18:40 Weight:121.5 kg (S). [...] rce(s) Supporting Document(s) ID Date Data Source [id number] 03/12/2020 12:00:00 AM EST [facility] Name Value Range Interpretation Code Description Data Sejal rce(s) Supporting Document(s) SARS coronavirus 2 Ag Negative [facility] This lab was ordered by [facility] and reported by [facility]. ID Date Data Source [id number] 02/24/2020 12:05:00 PM EST [facility] Name Value Range Interpretation Code Description Data Sejal rce(s) Supporting Document(s) SARS coronavirus 2 RNA [facility] This lab was ordered by [facility] nd reported by [facility]. ID Date Data Source [id number] 02/27/2020 04:10:00 PM EST [facility] Name Value Range Interpretation Code Description Data Sejal rce(s) Supporting Document(s) SARS COV2 [facility] Not Detected Not Detected [facility] This nucleic acid amplification test was [...] SARS-CoV-2 virusand/or diagnosis of COVID-19 infection under ifwxccm490(b)(1) of the Act, 21 U.S.C. 360bbb-3(b) (1), [...] negative(not detected) result in this assay.Performed at: [id number] [facility], [place], [place] [id number] Director: Meena Mc PhD, Phone: [phone] ID Date Data Source [id number] 02/27/2020 04:05:00 PM EST [facility] Name Value Range Interpretation Code Description Data Sejal rce(s) Supporting Document(s) SARS-CoV-2, ERWIN Not Detected Not Detected [facility] This nucleic acid amplification test was developed and its performancecharacteristics determined by [employer]. Nucleic acidamplification tests include PCR and TMA. [...] in this assay. ID Date Data Source [id number] 01/31/2020 11:15:00 AM EST [facility] Name Value Range Interpretation Code Description Data [facility] rce(s) Supporting Document(s) SARS coronavirus 2 RNA [facility] This lab was ordered by [facility] and reported by [facility]. ID Date Data Source [id number] 10/04/2019 09:02:00 AM EDT [facility] [...] rce(s) Supporting Document(s) ID Date Data Source [id number] 10/05/2019 12:09:00 PM EDT [facility] Name Value Range Interpretation Code Description Data [facility] rce(s) Supporting Document(s) TESTOSTERONE, SERUM 268 ng/dL 264-556 [facility] Adult male reference interval is based o n a population ofhealthy nonobese males (BMI <30) between 19 and 39 yearsold. Maddison et.al. JCEM 2017,102;0641-0185. PMID:[id number].Performed at: - [facility] [id number] Director: Catherine Cleveland MD, Phone: [phone] ID Date Data Source [id number] 10/05/2019 12:05:00 PM EDT [facility] Name Value Range Interpretation Code Description Data Sejal rce(s) Supporting Document(s) Testosterone, Serum 268 ng/dL [id number] [facility] Adult male reference interval is based o n a population ofhealthy nonobese males (BMI <30) between 19 and 39 years old.radha Washburn.al. JCEM 2017,102;1647-0795. PMID: [id number]. ID Date Data Source [id number] 10/04/2019 08:51:00 AM EDT [facility] FAX [phone] Name Value Range Interpretation Code Description Data Sejal rce(s) Supporting Document(s) PSA 0.56 ng/mL 0.0-4.0 [facility] THIS ASSAY WAS PERFORMED ON THE [employer] USINGTHE B- GALACTOSIDASE/CRPG METHODOLOGY. THE PSA IS NOT AN ABSOLUTE TEST FOR MALIGNANCY. IT SHOULD BEUSED IN CONJUNCTION WITH INFORMATION AVAILABLE FROM THECLINICAL EVALUATION AND OTHER DIAGNOSTIC PROCEDURES. VALUES OBTAINED WITH DIFFERENT ASSAY METHODS CANNOT BE USEDINTERCHANGEABLY. ID Date Data Source [id number] 10/04/2019 08:51:00 AM EDT [facility] l FAX [phone] Name Value Range Interpretation Code Description Data Sejal rce(s) Supporting Document(s) TSH 2.65 uIU/mL 0.36-3.74 [facility] ID Date Data Source [id number] 10/04/2019 08:39:00 AM EDT [facility] FA[facility] [phone] Name Value Range Interpretation Code Description Data Sejal rce(s) Supporting Document(s) CHOLESTEROL 228 mg/dL 0-200 H [facility] TRIGLYCERIDES 134 mg/dL 0-150 [facility] LDL CHOLESTEROL 116 mg/dL 0-100 H [facility] HDL CHOLESTEROL 85 mg/dL 40-60 H [facility] CHOL/HDL RATIO 2.7 0.0-5.0 [facility] ID Date Data Source [id number] 10/04/2019 08:39:00 AM EDT [facility] [phone] Name Value Range Interpretation Code Description Data Sejal rce(s) Supporting Document(s) GLUCOSE 98 mg/dL 74-106 [facility] BLOOD UREA NITROGEN 10 mg/dL 7-18 [facility] ital CREATININE 1.1 mg/dL 0.7-1.3 [facility] SODIUM 137 mmol/L 136-145 [facility] POTASSIUM 4.6 mmol/L 3.5-5.1 [facility] CHLORIDE 101 mmol/L 98-107 [facility] CO2 31 mmol/L 21-32 [facility] CALCIUM 8.9 mg/dL 8.5-10.1 [facility] ANION GAP 5.0 mmol/L 5-12 [facility] GLOMERULAR FILTRATION RATE 69 mL/min [facility] GFR IS CALCULATED IN mL/min/1.73m2 TEMO L FUNCTION: >90MILDLY DECREASED: 60-89MILDY TO MODERATELY DECREASED: 45-59 MODERATELY TO SEVERELY DECREASED: 30-44SEVERELY DECREASED: 15-29RENAL FAILURE: <15 AST 28 U/L 15-37 [facility] ALT 47 U/L 12-78 [facility] ALKALINE PHOSPHATASE 63 U/L 46-116 [facility] pital TOTAL BILIRUBIN 0.6 mg/dL 0.2-1.0 [facility] TOTAL PROTEIN 7.2 g/dl 6.4-8.2 [facility] ALBUMIN 3.8 gm/dL 3.4-5.0 [facility] ID Date Data Source [id number] 10/04/2019 08:31:00 AM EDT [facility] l FAX [phone] Name Value Range Interpretation Code Description Data Sejal rce(s) Supporting Document(s) ESTIMATED AVERAGE GLUCOSE 105.4 mg/dL [facility] ID Date Data Source [id number] 10/04/2019 08:31:00 AM EDT [facility] l FAX [phone] Name Value Range Interpretation Code Description Data Sejal rce(s) Supporting Document(s) HGBA1C 5.3 % 3.8-5.6 [facility] Diabetic > or = to 6.5%Prediabetes 5.7-6 .4%Normal <5.7 ID Date Data Source [id number] 10/04/2019 08:10:00 AM EDT [facility] l FAX [phone] Name Value Range Interpretation Code Description Data Sejal rce(s) Supporting Document(s) WHITE BLOOD COUNT 4.6 K/mm3 4.0-10.0 [facility] al RED BLOOD COUNT 4.67 M/mm3 4.50-6.00 [facility] HEMOGLOBIN 15.4 gm/dL 14.0-18.0 [facility] HEMATOCRIT 44.3 % 42.0-54.0 [facility] MEAN CELL VOLUME 94.9 fl 80-96 [facility] MEAN CORPUSCULAR HEMOGLOBIN 33.0 pg 27.0-31.0 H [facility] MEAN CORPUSCULAR HGB CONC 34.8 g/dl 32.0-36.0 [facility] RED CELL DISTRIBUTION WIDTH 13.3 % 10.0-14.5 [facility] PLATELET COUNT 201 K/mm3 172-450 [facility] ID Date Data Source [id number] 04/05/2019 07:21:35 PM EST [facility], PCName: Elva Pizarro: 1Provider: Angelica [...] pain; SONNY = N; Verified Transmission to [facility]; Last Updated By: Terence Weller; 04/05/2019 10:26:47 AM 2. X-Ray I Ankle - 3 views (XRays were ordered, obtained and interpreted today in the office. Indication: pain/dysfunction.); Status:Complete; Done: [id number] Perform:SOS22; Due:[id number]; Last Updated By:Leena Coyle; 04/05/2019 9:45:40 AM;Ordered; For:Right ankle pain; Ordered By:Efren Leslie;Weight Bearing Status : Weight bearingLaterality: : Right 3. DME (SOS) Supply(s) Diagnostic Diagnostic Status: Complete Done: [id number] Ordered;For: Achilles tendinitis, Right ankle pain; Ordered By: Efren Leslie Performed: Due: [id number]; Last Updated By: Greta Jason; 04/05/2019 10:25:40 [...] rce(s) Supporting Document(s) ID Date Data Source [id number] 03/03/2019 10:34:00 AM EST [facility] DATE OF EXAMINATION: 03/03/2019 [...] co mpleted Patient has never smoked MEDENT ([facility], [facility]) Smoking 08/14/2019 12:00:00 AM EDT Patient has never smoked co mpleted Patient has never smoked [facility] ([facility], ) Vital Signs ID Date Data Source [id number] Name Value Range Interpretation Code Description Data Source(s) Body mass index (BMI) [Ratio] 35.6 kg/m2 35.6 k g/m2 [facility] ([facility], [facility]) Body height 73 [in_i] 73 [in_i] [facility] ([facility]) 6'1" Body weight 270.00 [lb_av] 270.00 [lb_av] MEDEN T ([facility], [facility]) Body temperature 98.6 [degF] 98.6 [degF] [facility] ([facility], [facility]) Oxygen saturation in Arterial blood by Pulse oximetry 95 % 95 % [facility] ([facility], [facility]) Respiratory rate 14 /min 14 /min MED[facility] ( [facility], [facility]) Heart rate 94 /min 94 /min MEDENT ([facility], [facility]) Diastolic blood pressure 91 mm[Hg] 91 mm[Hg] MEDENT ([facility], [facility]) Systolic blood pressure 135 mm[Hg] 135 mm[Hg] M EDENT ([facility], [facility]) Body height 73 [in_i] 73 [in_i] eCW1 ([facility]) Body weight 270 [lb_av] 270 [lb_av] eCW1 ([facility]) Body mass index (BMI) [Ratio] 35.62 kg/m2 35.62 kg/m2 eCW1 ([facility]) Body temperature 98.3 [degF] 98.3 [degF] eCW1 ( [facility]) Heart rate 79 /min 79 /min eCW1 ([facility]) Respiratory rate 18 /min 18 /min eCW1 ([facility]) Oxygen saturation in Arterial blood by Pulse oximetry 98 % 98 % eCW1 ([facility]) Body temperature 97.9 [degF] 97.9 [degF] MEDENT ([facility]) Body weight 128.822 kg 128.822 kg [facility] ([facility]) Body mass index (BMI) [Ratio] 37.5 kg/m2 37.5 k g/m2 [facility] ([facility]) Heart rate 87 /min 87 /min [facility] ([facility]) Diastolic blood pressure 87 mm[Hg] 87 mm[Hg] [facility] ([facility]) Systolic blood pressure 132 mm[Hg] 132 mm[Hg] [facility] Body weight 284.00 [lb_av] 284.00 [lb_av] MEDEN T ([facility]) Body height 73 [in_i] 73 [in_i] [facility] ([facility]) 6'1" Body weight 127.008 kg 127.008 kg [facility] ([facility]) Body mass index (BMI) [Ratio] 36.9 kg/m2 36.9 k g/m2 [facility] ([facility]) Body weight 280.00 [lb_av] 280.00 [lb_av] [facility] ([facility]) Body height 73 [in_i] 73 [in_i] [facility] ([facility]) 6'1" Body temperature 97.4 [degF] 97.4 [degF] [facility] ([facility]) Oxygen saturation in Arterial blood by Pulse oximetry 97 % 97 % [facility] ([facility]) Room Air Heart rate 80 /min 80 /min [facility] ([facility]) Diastolic blood pressure 94 mm[Hg] 94 mm[Hg] [facility] ([facility]) Systolic blood pressure 142 mm[Hg] 142 mm[Hg] [facility] ([facility]) Body height 73 [in_i] 73 [in_i] [facility] ([facility]) 6'1" Oxygen saturation in Arterial blood by Pulse oximetry 96 % 96 % [facility] ([facility]) Heart rate 69 /min 69 /min [facility] ([facility]) Diastolic blood pressure 88 mm[Hg] 88 mm[Hg] [facility] ([facility]) Systolic blood pressure 128 mm[Hg] 128 mm[Hg] [facility] ([facility]) Body weight 125.250 kg 125.250 kg [facility] ([facility]) Body mass index (BMI) [Ratio] 36.4 kg/m2 36.4 k g/m2 [facility]) Body weight 276.12 [lb_av] 276.12 [lb_av] LAURENCE Bailey ([facility])
[2020-03-21 15:45] LABS: INR 1.03; PROTHROMBIN TIME 13.7 SECONDS (12.5-14.3)
[2020-03-21 15:46] LABS: PARTIAL THROMBOPLASTIN TIME 31.5 SECONDS (24.2-38.5)
[2020-03-21] MEDS: dexameTHASONE 4 MG/ML 1ML VIAL (J1100 PER 1MG) IV SCH (15:59)
[2020-03-21] MEDS: ASPIRIN 81 MG ENTERIC TAB PO SCH (15:59)
[2020-03-21] MEDS ORDERED: REMDESIVIR 200 MG in NS 250 ML IV ONE ×2 (17:00→23:00)
[2020-03-21] MEDS: SYMBICORT 80/4.5MCG INHALER 6GM INH SCH (19:40)
[2020-03-21] MEDS: METOPROLOL SUCC *XL* 25MG TAB (TopROL *XL*) PO SCH (20:42)
[2020-03-21] MEDS: ACETAMINOPHEN TAB 650MG DOSE (2X325MG) PO PRN (20:43)
[2020-03-21 21:55] VITALS: BP 119/79
[2020-03-21 23:00] VITALS: O2SAT 93
[2020-03-22] VITALS (12 sets, daily range): BP systolic 103–115; BP diastolic 53–64; O2SAT 85–96
[2020-03-22] MEDS ORDERED: SODIUM CHLORIDE 0.9% INJ 10 ML SYR IV ONE
[2020-03-22] MEDS: SYMBICORT 80/4.5MCG INHALER 6GM INH SCH ×2 (07:50→20:05)
[2020-03-22] MEDS ORDERED: ENOXAPARIN 40MG/0.4ML SYRINGE (J1650 PER 10MG) SC SCH (09:00)
[2020-03-22] MEDS: dexameTHASONE 4 MG/ML 1ML VIAL (J1100 PER 1MG) IV SCH (09:10)
[2020-03-22] MEDS: OMEPRAZOLE 20 MG CAP PO SCH (09:10)
[2020-03-22] MEDS: METOPROLOL SUCC *XL* 25MG TAB (TopROL *XL*) PO SCH ×2 (09:10→21:53)
[2020-03-22] MEDS: ASPIRIN 81 MG ENTERIC TAB PO SCH (09:10)
[2020-03-22] MEDS: ENOXAPARIN 40MG/0.4ML SYRINGE (J1650 PER 10MG) SC SCH ×2 (09:11→21:54)
[2020-03-22 09:54] LABS: BASO % 0.1 % (0.0-1.0); HEMATOCRIT 43.1 % (42.0-52.0); HEMOGLOBIN 14.9 g/dl (13.5-17.5); LYMPH # 0.5 10^3/uL (1.5-5.0); LYMPH % 5.1 % (24.0-44.0); MEAN CORPUSCULAR HEMOGLOBIN 31.6 pg (27.0-33.0); MEAN CORPUSCULAR HGB CONC 34.6 g/dl (32.0-36.5); MEAN CORPUSCULAR VOLUME 91.3 fl (80.0-96.0); MONO # 0.2 10^3/uL (0.0-0.8); MONO % 2.1 % (0.0-5.0); NEUTROPHILS # 8.5 10^3/uL (1.5-8.5); NEUTROPHILS % 91.5 % (36.0-66.0); PLATELET COUNT, AUTOMATED 178 10^3/uL (150-450); RED BLOOD COUNT 4.72 10^6/uL (4.30-6.10); WHITE BLOOD COUNT 9.3 10^3/uL (4.0-10.0)
[2020-03-22 10:23] LABS: BLOOD UREA NITROGEN 14 MG/DL (7-18); CARBON DIOXIDE LEVEL 30 MEQ/L (21-32); CHLORIDE LEVEL 93 MEQ/L (98-107); CREATININE FOR GFR 0.96 MG/DL (0.70-1.30); GLOMERULAR FILTRATION RATE > 60.0 (>56); GLUCOSE, FASTING 110 MG/DL (70-100); MAGNESIUM LEVEL 2.1 MG/DL (1.8-2.4); POTASSIUM SERUM 3.7 MEQ/L (3.5-5.1); SODIUM LEVEL 130 MEQ/L (136-145)
[2020-03-22] MEDS ORDERED: ISOVUE-370 76% 100ML VIAL As Ordered ONE (10:34)
[2020-03-22] MEDS: PRAVASTATIN 20 MG TAB PO SCH (10:41)
[2020-03-22] MEDS: VENLAFAXINE **XR** 37.5 MG CAPSULE PO SCH (10:41)
[2020-03-22] MEDS: ACETAMINOPHEN TAB 650MG DOSE (2X325MG) PO PRN (10:41)
--- NOTE | 2020-03-22 11:47 | REP ---
INDICATION: Covid+, Obseity.. COMPARISON: CT 03/16/2005, radiograph 03/21/2020. TECHNIQUE: CT angiogram chest performed following the intravenous administration of 100 cc of Isovue 370. Sagittal and coronal reconstruction images are performed. Study is limited due to patient motion. FINDINGS: Lungs: There are diffuse patchy bilateral infiltrates. Mediastinum: Partially calcified nonenlarged subcarinal lymph node is seen. Pulmonary arteries: No evidence of pulmonary embolism. Anais: No adenopathy. Axilla: No adenopathy. Pleura: No effusion. Heart: Not enlarged. Thoracic aorta: No aneurysm or dissection. Upper abdominal structures: There is a small cyst in the upper pole of each kidney as seen on prior CT of abdomen 2016. Visualized osseous structures: Unremarkable. IMPRESSION: No CT evidence of pulmonary diffuse patchy bilateral infiltrates. <Electronically signed by Kota Ness > 03/22/20 1144
--- NOTE | 2020-03-22 15:36 | IPNPDOC ---
Text Note Date of Service The patient was seen on 03/22/20. NOTE Tested positive for Covid on Mar 15 Symptom onset on Mar 11 Subjective: Patient seen and examined at bedside today. Patient reports he is extremely exhausted, and feels weak. He is having high temperatures and was requesting for a wet cloth to be placed on his head. He reports he has been worsening since 3-4 days but feels better today than yesterday. He is on 4 L of nasal cannula saturating at 92%. Physical exam: - Gen.: Patient alert oriented 3, reports feeling very weak. CVS: S1-S2 heard, no murmurs appreciated. Respiratory: Clear breath sounds heard in the upper lungs, mild distant sounds in the lower lungs, no wheezes, rhonchi or rubs. Abdomen: Soft, nontender, positive bowel sounds. 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 Assessment: 59-year-old male patient with history of hypertension, asthma, dyslipidemia, presented to the [facility] ED with complaining of fatigue, cough, malaise, fevers since few days. In the ED he was found to be hypoxic. Today he is on 4-5 L of nasal cannula saturating at 92% and was having intermittent high fevers. Acute hypoxia respiratory failure 2/2 Covid 19: -Patient was started on Remdisvir, today would be day 2. - Today would be day 2 of dexamethasone 6 mg daily. - Will continue Lovenox 40 mg twice a day for now. - Patient has a d-dimer of 2242. - Will get a CTA given patient is Covid positive and obese. - Continue albuterol inhalers, Tessalon Perles for cough. Asthma: - Patient has history of asthma, not in exacerbation at this time. - Continue to monitor Hypertension:- - Continue metoprolol home medication Dyslipidemia: - Continue pravastatin home medications Anxiety/depression: - Will continue venlafaxine GERD: - Continue omeprazole 20 daily DVT prophylaxis: - Lovenox 40 mg twice a day Disposition: - Patient is feeling tired and weak at this time, and actively having intermittent fevers. pending clinical improvement. VS,Fishbone, I+O VS, Fishbone, I+O Laboratory Tests 03/22/20 09:05 03/22/20 09:06 Vital Signs Date Time Temp Pulse Resp B/P (MAP) Pulse Ox O2 Delivery O2 Flow Rate FiO2 03/22/20 13:53 98.9 93 19 60 Nasal Cannula 5.0 03/22/20 09:10 103/53 I&O- Last 24 Hours up to 6 AM 03/22/20 06:00 Intake Total 320 ml Output Total 600 ml Balance -280 ml GME ATTESTATION GME ATTESTATION My faculty preceptor for this patient encounter was physically present during the encounter and was fully available. All aspects of the patient interview, examination, medical decision making process, and medical care plan development were reviewed and approved by the faculty preceptor. The faculty preceptor is aware and concurs with the plan as stated in the body of this note and will attest to such by his/her cosignature. ATTENDING NOTE I, Rudolph Smith MD, have independently examined this patient and performed my own physical exam, as well as reviewed the documentation and edited where necessary. I have discussed in detail with the resident / student the findings and plan of treatment as documented by the resident / student and edited their note. I agree with their findings and treatment plan and have edited their documentation. Mary Ferguson MD Mar 22, 2020 15:36 RUDOLPH SMITH MD Mar 29, 2020 12:48
[2020-03-22] MEDS: REMDESIVIR 100 MG in NS 250 ML IV SCH (21:53)
[2020-03-22] MEDS: FLUTICASONE PROP 0.05% NASAL SPRAY 16 GM (FLONASE) NARES SCH (21:54)
[2020-03-22] MEDS: SODIUM CHLORIDE 0.9% INJ 10 ML SYR IV SCH (23:40)
[2020-03-23] VITALS (7 sets, daily range): BP systolic 105–135; BP diastolic 56–76; O2SAT 91–92
[2020-03-23 07:08] LABS: BASO % 0.3 % (0.0-1.0); HEMATOCRIT 41.4 % (42.0-52.0); HEMOGLOBIN 14.4 g/dl (13.5-17.5); LYMPH # 0.8 10^3/uL (1.5-5.0); LYMPH % 10.2 % (24.0-44.0); MEAN CORPUSCULAR HEMOGLOBIN 31.5 pg (27.0-33.0); MEAN CORPUSCULAR HGB CONC 34.8 g/dl (32.0-36.5); MEAN CORPUSCULAR VOLUME 90.6 fl (80.0-96.0); MONO # 0.4 10^3/uL (0.0-0.8); MONO % 5.5 % (0.0-5.0); NEUTROPHILS # 6.2 10^3/uL (1.5-8.5); NEUTROPHILS % 82.5 % (36.0-66.0); PLATELET COUNT, AUTOMATED 198 10^3/uL (150-450); RED BLOOD COUNT 4.57 10^6/uL (4.30-6.10); WHITE BLOOD COUNT 7.5 10^3/uL (4.0-10.0)
[2020-03-23 07:19] LABS: BLOOD UREA NITROGEN 15 MG/DL (7-18); CALCIUM LEVEL 8.1 MG/DL (8.5-10.1); CARBON DIOXIDE LEVEL 26 MEQ/L (21-32); CHLORIDE LEVEL 96 MEQ/L (98-107); CREATININE FOR GFR 0.75 MG/DL (0.70-1.30); GLOMERULAR FILTRATION RATE > 60.0 (>56); GLUCOSE, FASTING 100 MG/DL (70-100); MAGNESIUM LEVEL 2.4 MG/DL (1.8-2.4); SODIUM LEVEL 131 MEQ/L (136-145)
[2020-03-23] MEDS: SYMBICORT 80/4.5MCG INHALER 6GM INH SCH ×2 (08:03→20:00)
[2020-03-23] MEDS: METOPROLOL SUCC *XL* 25MG TAB (TopROL *XL*) PO SCH ×2 (09:00→20:46)
[2020-03-23] MEDS ORDERED: SODIUM CHLORIDE NASAL 0.65% SPRAY BTL (OCEAN) PRN (09:45)
--- NOTE | 2020-03-23 09:55 | IPNPDOC ---
Text Note Date of Service The patient was seen on 03/23/20. NOTE Tested positive on March 15 Symptom onset on March 11 Subjective: Patient seen and examined at bedside today. Patient is very anxious, that his saturations are dropping and his getting up and trying to walk. He is on 5 L saturating at 93% resting. Is denies having any shortness of breath, cough. He reports feeling weak but better than yesterday. Denies having any acute events overnight. Physical exam: Gen.: Patient is alert and oriented 3, no acute distress. CVS S1-S2 heard, no murmurs appreciated. Respiratory: Distant breath sounds in the bilateral lower lobes, clear breath sounds heard in the upper lobes, no wheezes rhonchi or rubs. Abdomen soft, nontender, positive bowel sounds. Extremities: No pedal edema, no cyanosis. 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 CTA on 03/22/20, reported as no evidence of PE, lungs have diffuse patchy bilateral infiltration. Assessment: 59-year-old male patient with history of asthma, hypertension, HDL, obesity presented to [facility] ED with complaining of fatigue, cough, malaise and fevers since few days. In the ED he was found to be hypoxic. Today patient is still on 5 L of nasal cannula saturating > 90% at rest. No fevers overnight. Acute hypoxic respiratory failure 2/2 Covid19: - Patient is on day 3 of Remdisvir, day 3 of dexamethasone 6 mg daily. - Will continue Lovenox 40 MG twice a day - Continue albuterol inhaler, Brandie Blount Encouraged patient to use incentive spirometry. - Patient reports having dry nose will give him saline nasal sprays. Asthma: - She has history of asthma, not in acute exacerbation at this time. - Will continue to monitor - Patient is already on albuterol inhaler. Hypertension: - Continue metoprolol 125 mg he did - Hold parameters would be SBP less than 100 mmHg Dyslipidemia: - Will continue home medication pravastatin 40 MG by mouth daily Anxiety/depression: - Will continue venlafaxine 37.5 MG by mouth GERD: -Continue omeprazole 20 mg daily DVT prophylaxis: -Patient is on Lovenox 40 mg twice a day Disposition: - If patient is desaturating into the 80s on rest switch him to high flow nasal cannula/Vapotherm. VS,Fishbone, I+O VS, Fishbone, I+O Laboratory Tests 03/23/20 06:36 Vital Signs Date Time Temp Pulse Resp B/P (MAP) Pulse Ox O2 Delivery O2 Flow Rate FiO2 03/23/20 08:00 97.1 49 20 135/76 (95) 93 Nasal Cannula 5.0 I&O- Last 24 Hours up to 6 AM 03/23/20 06:00 Intake Total 2380 ml Output Total 1500 ml Balance 880 ml Mary Ferguson MD Mar 23, 2020 09:55
[2020-03-23] MEDS: ASPIRIN 81 MG ENTERIC TAB PO SCH (09:59)
[2020-03-23] MEDS: PRAVASTATIN 20 MG TAB PO SCH (09:59)
[2020-03-23] MEDS: OMEPRAZOLE 20 MG CAP PO SCH (10:00)
[2020-03-23] MEDS: FLUTICASONE PROP 0.05% NASAL SPRAY 16 GM (FLONASE) NARES SCH ×2 (10:00→20:46)
[2020-03-23] MEDS: VENLAFAXINE **XR** 37.5 MG CAPSULE PO SCH (10:00)
[2020-03-23] MEDS: ENOXAPARIN 40MG/0.4ML SYRINGE (J1650 PER 10MG) SC SCH ×2 (10:00→20:47)
[2020-03-23] MEDS: dexameTHASONE 4 MG/ML 1ML VIAL (J1100 PER 1MG) IV SCH (10:00)
[2020-03-23] MEDS: REMDESIVIR 100 MG in NS 250 ML IV SCH (23:09)
[2020-03-23] MEDS: SODIUM CHLORIDE 0.9% INJ 10 ML SYR IV SCH (23:09)
[2020-03-24 04:13] VITALS: BP 141/66
[2020-03-24] MEDS: SYMBICORT 80/4.5MCG INHALER 6GM INH SCH ×2 (07:31→19:31)
[2020-03-24 08:00] VITALS: BP 114/56
[2020-03-24] MEDS: VENLAFAXINE **XR** 37.5 MG CAPSULE PO SCH (10:17)
[2020-03-24] MEDS: PRAVASTATIN 20 MG TAB PO SCH (10:17)
[2020-03-24] MEDS: ASPIRIN 81 MG ENTERIC TAB PO SCH (10:17)
[2020-03-24] MEDS: OMEPRAZOLE 20 MG CAP PO SCH (10:17)
[2020-03-24] MEDS: ENOXAPARIN 40MG/0.4ML SYRINGE (J1650 PER 10MG) SC SCH (10:18)
[2020-03-24] MEDS: dexameTHASONE 4 MG/ML 1ML VIAL (J1100 PER 1MG) IV SCH (10:18)
[2020-03-24] MEDS: METOPROLOL SUCC *XL* 25MG TAB (TopROL *XL*) PO SCH ×2 (10:18→20:27)
[2020-03-24] MEDS: DOXYCYCLINE HYCLATE 100 MG in D5W MINI-BAG PLUS 100 ML IV SCH ×2 (10:19→20:28)
[2020-03-24] MEDS: FLUTICASONE PROP 0.05% NASAL SPRAY 16 GM (FLONASE) NARES SCH ×2 (10:19→20:28)
[2020-03-24] MEDS: NYSTATIN 500,000 U/5 ML SUSP UDC SS SCH ×2 (12:13→21:44)
[2020-03-24 14:00] VITALS: BP 124/69
--- NOTE | 2020-03-24 15:03 | IPNPDOC ---
Date Seen The patient was seen on 03/24/20. Progress Note SUBJECTIVE: Patient seen and examined at bedside this morning. Doing well. Denies shortness of breath, fevers, chills, nausea, vomiting, chest pain, pal pitations, diarrhea. Her RN, saturates on lying on the left side versus the right side. Presently liters at 94%. OBJECTIVE PHYSICAL EXAMINATION: VITAL SIGNS: please see below General: NAD, comfortable HEENT: PERRLA, EOMI, sclerae clear Neck: supple, normal ROM, no JVD Respiratory: Reduced air entry bilaterally, however, otherwise clear to auscultation, no crackles, wheezes or rales. CVS: RRR, normal S1, S2, no murmurs Abdo: soft, no masses, no hepatosplenomegaly, BS+, no rebound tenderness Extremities: no edema, pulses 2+ MSK: no joint deformities, normal ROM Neuro: no focal neuro deficits, moving all 4 extremities, CN2-12 intact. Strength 5/5 in all 4 extremities. No nystagmus. Psych: calm, cooperative, AAO x 3 LABORATORY DATA, IMAGING STUDIES, MICROBIOLOGY: Please see below. DVT prophylaxis ordered?: Lovenox prophylactic doses of 3.5 mg/kg every 12 hours ASSESSMENT AND PLAN: 59-year-old male patient with history of asthma, hypertension, HDL, obesity, presenting with hypoxia. Admitted to hospitalist corrina talavera for management of Coumadin 19 infection. Present saturating 94% on 8 L. PROBLEMS: Acute hypoxic respiratory failure 2/2 Covid19: - Remdesivir (Day 4), dexamethasone 6 mg IV daily (day 4) - procal elevated, XR c/w pneumonia - stared doxycycline (day 1) - weight based prophylactic lovenox - Continue albuterol inhaler, Tessalon Jose Alejandro Encouraged patient to use incentive spirometry. - Patient reports having dry nose will give him saline nasal sprays. Asthma: -combivent Hypertension: - Continue metoprolol 25 mg - Hold parameters Dyslipidemia: - pravastatin 40 MG Anxiety/depression: - Will continue venlafaxine 37.5 MG GERD: -Continue omeprazole 20 mg daily DVT prophylaxis: -Lovenox 0.5 mg/kg every 12 hours Disposition: -Pending clinical improvement VS, I&O, 24H, Fishbone Vital Signs/I&O Vital Signs Date Time Temp Pulse Resp B/P (MAP) Pulse Ox O2 Delivery O2 Flow Rate FiO2 03/24/20 10:18 73 114/56 03/24/20 08:00 98.0 18 93 Nasal Cannula 10.0 03/24/20 07:45 31 I&O- Last 24 Hours up to 6 AM 03/24/20 06:00 Intake Total 1100 ml Output Total 900 ml Balance 200 ml Laboratory Data Microbiology Microbiology 03/21/20 Blood Culture - Preliminary, Resulted No Growth after 72 hours. All specime... 03/21/20 Blood Culture - Preliminary, Resulted No Growth after 72 hours. All specime... EL PATIÑO MD Mar 24, 2020 15:03
[2020-03-24] MEDS ORDERED: COMBIVENT RESPIMAT 100-20MCG INHALER 4GM INH PRN (15:15)
--- NOTE | 2020-03-24 16:17 | REP ---
INDICATION: pneumonia. COMPARISON: 03/21/2020 TECHNIQUE: Portable FINDINGS: The technique utilized in obtaining the radiograph has magnified the cardiac silhouette and accentuated the interstitial markings. The cardiomediastinal silhouette is unchanged. The heart is not enlarged. Patchy opacities are again seen throughout the lung martínez bilaterally possibly increased slightly in the right upper lobe region. The pleural angles are unchanged. The osseous structures are unchanged. IMPRESSION: Bilateral lung field opacities essentially unchanged from the prior exam with the exception of the right upper lobe where airspace disease may have increased. <Electronically signed by King Farias > 03/24/20 0149
[2020-03-24 19:31] VITALS: O2SAT 96
[2020-03-24 20:00] VITALS: BP_SYST 111; BP_SYST 167; BP_DIAS 60; BP_DIAS 77
[2020-03-24] MEDS: ENOXAPARIN 60MG/0.6ML SYRINGE (J1650 PER 10MG) SC SCH (20:27)
[2020-03-24] MEDS ORDERED: zolPIDEM TARTRATE 5 MG TAB PO ONE (21:00)
[2020-03-24] MEDS: REMDESIVIR 100 MG in NS 250 ML IV SCH (21:57)
[2020-03-24] MEDS: SODIUM CHLORIDE 0.9% INJ 10 ML SYR IV SCH (23:00)
[2020-03-25 04:00] VITALS: BP 128/84
[2020-03-25] MEDS: SYMBICORT 80/4.5MCG INHALER 6GM INH SCH ×2 (07:52→20:08)
[2020-03-25 08:01] VITALS: BP 131/64
[2020-03-25] MEDS: ENOXAPARIN 60MG/0.6ML SYRINGE (J1650 PER 10MG) SC SCH (09:11)
[2020-03-25] MEDS: DOXYCYCLINE HYCLATE 100 MG in D5W MINI-BAG PLUS 100 ML IV SCH ×2 (09:11→21:04)
[2020-03-25] MEDS: dexameTHASONE 4 MG/ML 1ML VIAL (J1100 PER 1MG) IV SCH (09:12)
[2020-03-25] MEDS: ASPIRIN 81 MG ENTERIC TAB PO SCH (09:12)
[2020-03-25] MEDS: NYSTATIN 500,000 U/5 ML SUSP UDC SS SCH ×2 (09:12→21:04)
[2020-03-25] MEDS: METOPROLOL SUCC *XL* 25MG TAB (TopROL *XL*) PO SCH ×2 (09:12→21:05)
[2020-03-25] MEDS: OMEPRAZOLE 20 MG CAP PO SCH (09:12)
[2020-03-25] MEDS: FLUTICASONE PROP 0.05% NASAL SPRAY 16 GM (FLONASE) NARES SCH ×2 (09:13→21:03)
[2020-03-25] MEDS: PRAVASTATIN 20 MG TAB PO SCH (10:40)
[2020-03-25] MEDS: VENLAFAXINE **XR** 37.5 MG CAPSULE PO SCH (10:40)
--- NOTE | 2020-03-25 10:43 | REP ---
INDICATION: SOB;covid COMPARISON: 03/24/2020 TECHNIQUE: Portable AP view of the chest FINDINGS: The mediastinum and cardiac silhouette are stable and within normal limits for portable technique. The lung martínez demonstrate subtle patchy right basilar and left-sided airspace disease which is relatively similar to prior examination. No effusion. No pneumothorax. Skeletal structures intact. IMPRESSION: Subtle bilateral airspace disease similar to prior examination. <Electronically signed by Jonny Patterson > 03/25/20 [id number]
--- NOTE | 2020-03-25 10:47 | IPNPDOC ---
Text Note Date of Service The patient was seen on 03/25/20. NOTE SUBJECTIVE: No acute events overnight, patient required venti mask as his oxygen saturations dropped but this was not symptomatic, states last night was the first night he slept in the past 5 days because he received a one time ambien. Patient reports no changes to his SOB, overall doing well, but is frustrated because he would like to go home. He denies any fever, chills, night sweats, chest pain, palpitations, N/V/D. Currently at 89% on 7L NC. OBJECTIVE: PHYSICAL EXAMINATION: VITAL SIGNS: please see below General: Laying back in bed comfortably speaking in complete sentences with nasal cannula in place HEENT: NC, AT, EOMI, sclerae clear Neck: supple, normal ROM, no JVD Respiratory: Diminished breath sounds bilaterally, otherwise no wheezes, crackles, or rhonchi. CVS: RRR, normal S1, S2, no murmurs Abdo: soft, no masses, no hepatosplenomegaly, BS+, no rebound tenderness Extremities: no edema, pulses 2+ MSK: no joint deformities, normal ROM Neuro: no focal neurologic deficits, moves all 4 extremities, CN2-12 grossly intact. Psych: calm, cooperative, A/O x 3 LABORATORY DATA, IMAGING STUDIES, MICROBIOLOGY: Please see below. DVT prophylaxis ordered?: Lovenox prophylactic doses of 0.5 mg/kg every 12 hours ASSESSMENT AND PLAN: 59-year-old male patient with history of asthma, hypertension, HDL, obesity, presenting with hypoxia. Admitted to hospitalist service for management of COVID-19 infection. Patient continues to have intermittent hypoxia and requires intermediate doses of oxygen by nasal cannula. #. Acute hypoxic respiratory failure 2/2 Covid-19 - Remdesivir (Day 5), will continue for 10 days total, dexamethasone 6 mg IV daily (day 5) - procal elevated, CXR c/w pneumonia; continue Doxy (day 2) - Given downtrending D dimer, will de-escalate lovenox to 40 BID - Continue albuterol inhaler, Tessalon Perles Continue incentive spirometry. - Repeat portable CXR this AM. #. Nocturnal hypoxia -Likely multifactorial, suspect HENRY given body habitus and possible pulmonary HTN, will obtain Echo for same. His O2 dropping and this being the first night he has slept because of ambien are likely not coincidental. DO NOT recommend further use of agents that cause respiratory depression. This was discussed with the patient and he verbalized that he understood the reasoning for this. - Repeat BNP #. Asthma: -combivent #. Hypertension: - Continue metoprolol 25 mg w/ holding parameters #. Dyslipidemia: - pravastatin 40 MG #. Anxiety/depression: - Will continue Venlafaxine 37.5 MG #. GERD: -Continue omeprazole 20 mg daily DVT prophylaxis: -Lovenox 40mg IV BID Disposition: Pending clinical improvement CODE STATUS: FULL CODE Prognosis: Guarded VS,Fishbone, I+O VS, Fishbone, I+O Vital Signs Date Time Temp Pulse Resp B/P (MAP) Pulse Ox O2 Delivery O2 Flow Rate FiO2 03/25/20 09:12 71 131/64 03/25/20 08:01 98.9 18 96 Nasal Cannula 7.0 03/24/20 14:00 I&O- Last 24 Hours up to 6 AM 03/25/20 06:00 Intake Total 1100 ml Output Total 1300 ml Balance -200 ml GME ATTESTATION GME ATTESTATION My faculty preceptor for this patient encounter was physically present during the encounter and was fully available. All aspects of the patient interview, examination, medical decision making process, and medical care plan development were reviewed and approved by the faculty preceptor. The faculty preceptor is aware and concurs with the plan as stated in the body of this note and will attest to such by his/her cosignature. ATTENDING NOTE I, Rudolph Davis MD, have independently examined this patient and performed my own physical exam, as well as reviewed the documentation and edited where necessary. I have discussed in detail with the resident / student the findings and plan of treatment as documented by the resident / student and edited their note. I agree with their findings and treatment plan and have edited their documentation. ABDIEL CAMPUZANO DO Mar 25, 2020 10:46 RUDOLPH DAVIS MD Mar 29, 2020 12:49
[2020-03-25 16:40] VITALS: BP 137/63
[2020-03-25 20:00] VITALS: BP 114/59
[2020-03-25] MEDS: ENOXAPARIN 40MG/0.4ML SYRINGE (J1650 PER 10MG) SC SCH (21:04)
[2020-03-25] MEDS: REMDESIVIR 100 MG in NS 250 ML IV SCH (22:29)
[2020-03-25] MEDS: SODIUM CHLORIDE 0.9% INJ 10 ML SYR IV SCH (23:58)
[2020-03-26 04:00] VITALS: BP 137/66
[2020-03-26 06:42] LABS: BASO % 0.2 % (0.0-1.0); EOS # 0.1 10^3/uL (0.0-0.5); EOS % 1.5 % (0.0-3.0); HEMATOCRIT 41.3 % (42.0-52.0); HEMOGLOBIN 14.5 g/dl (13.5-17.5); LYMPH # 0.9 10^3/uL (1.5-5.0); LYMPH % 9.8 % (24.0-44.0); MEAN CORPUSCULAR HEMOGLOBIN 32.1 pg (27.0-33.0); MEAN CORPUSCULAR HGB CONC 35.1 g/dl (32.0-36.5); MEAN CORPUSCULAR VOLUME 91.4 fl (80.0-96.0); MONO # 0.3 10^3/uL (0.0-0.8); MONO % 3.8 % (0.0-5.0); NEUTROPHILS # 7.2 10^3/uL (1.5-8.5); NEUTROPHILS % 82.3 % (36.0-66.0); PLATELET COUNT, AUTOMATED 268 10^3/uL (150-450); RED BLOOD COUNT 4.52 10^6/uL (4.30-6.10); WHITE BLOOD COUNT 8.8 10^3/uL (4.0-10.0)
[2020-03-26 07:04] LABS: ALBUMIN 2.4 GM/DL (3.2-5.2); ALT/SGPT 66 U/L (12-78); BILIRUBIN,TOTAL 0.7 MG/DL (0.2-1.0); BLOOD UREA NITROGEN 13 MG/DL (7-18); CALCIUM LEVEL 8.1 MG/DL (8.5-10.1); CARBON DIOXIDE LEVEL 28 MEQ/L (21-32); CHLORIDE LEVEL 101 MEQ/L (98-107); CREATININE FOR GFR 0.74 MG/DL (0.70-1.30); GLOMERULAR FILTRATION RATE > 60.0 (>56); GLUCOSE, FASTING 84 MG/DL (70-100); POTASSIUM SERUM 4.3 MEQ/L (3.5-5.1); SODIUM LEVEL 135 MEQ/L (136-145); TOTAL PROTEIN 5.7 GM/DL (6.4-8.2)
[2020-03-26] MEDS: SYMBICORT 80/4.5MCG INHALER 6GM INH SCH ×2 (07:55→21:33)
[2020-03-26 08:25] VITALS: BP 110/59
[2020-03-26] MEDS ORDERED: ZINC SULFATE 220 MG CAP PO SCH (09:00)
[2020-03-26] MEDS: NYSTATIN 500,000 U/5 ML SUSP UDC SS SCH ×2 (10:32→20:03)
[2020-03-26] MEDS: ASPIRIN 81 MG ENTERIC TAB PO SCH (10:32)
[2020-03-26] MEDS: DOXYCYCLINE HYCLATE 100 MG in D5W MINI-BAG PLUS 100 ML IV SCH ×2 (10:32→20:03)
[2020-03-26] MEDS: dexameTHASONE 4 MG/ML 1ML VIAL (J1100 PER 1MG) IV SCH (10:33)
[2020-03-26] MEDS: ENOXAPARIN 40MG/0.4ML SYRINGE (J1650 PER 10MG) SC SCH ×2 (10:33→20:02)
[2020-03-26] MEDS: METOPROLOL SUCC *XL* 25MG TAB (TopROL *XL*) PO SCH ×2 (10:33→20:24)
[2020-03-26] MEDS: PRAVASTATIN 20 MG TAB PO SCH (10:33)
[2020-03-26] MEDS: VENLAFAXINE **XR** 37.5 MG CAPSULE PO SCH (10:33)
[2020-03-26] MEDS: OMEPRAZOLE 20 MG CAP PO SCH (10:33)
[2020-03-26] MEDS: FLUTICASONE PROP 0.05% NASAL SPRAY 16 GM (FLONASE) NARES SCH ×2 (10:34→20:03)
--- NOTE | 2020-03-26 14:00 | IPNPDOC ---
Text Note Date of Service The patient was seen on 03/26/20. NOTE SUBJECTIVE: No acute events overnight, patient reports he feels much better t francy mentally and is doing well overall. He denies any fever, chills, night sweats, chest pain, palpitations, N/V/D. He has been weened down to nasal cannula by nursing staff. OBJECTIVE: PHYSICAL EXAMINATION: VITAL SIGNS: please see below General: Laying in bed comfortably speaking in complete sentences with nasal cannula in place HEENT: NC, AT, EOMI, sclerae clear Neck: supple, normal ROM, no JVD Respiratory: Diminished breath sounds bilaterally, no wheezes, crackles, or rhonchi. CVS: RRR, normal S1, S2, no murmurs Abdo: soft, no masses, no hepatosplenomegaly, BS+, no rebound tenderness Extremities: no edema, pulses 2+ MSK: no joint deformities, normal ROM Neuro: no focal neurologic deficits, moves all 4 extremities, CNII-XII grossly intact. Psych: calm, cooperative, A/O x 3 LABORATORY DATA, IMAGING STUDIES, MICROBIOLOGY: Please see below. DVT prophylaxis ordered?: Lovenox prophylactic doses of 0.5 mg/kg every 12 hours ASSESSMENT AND PLAN: 59-year-old male patient with history of asthma, hypertension, HDL, obesity, presenting with hypoxia. Admitted to hospitalist service for management of COVID-19 infection. Patient continues to have intermittent hypoxia and requires intermediate doses of oxygen by nasal cannula. #. Acute hypoxic respiratory failure 2/2 Covid-19 - Remdesivir (Day 6), will continue for 10 days total, dexamethasone 6 mg IV daily (day 6) - procal elevated, CXR c/w pneumonia; continue Doxy (day 3) - Given downtrending D dimer, continue Lovenox to 40 BID - Continue albuterol inhaler, Tessalon Perles Continue incentive spirometry. Adding Zinc, vitamin C - Repeat CXR from 03/25 showing subtle bilateral airspace disease similar to prior examination. #. Nocturnal hypoxia -Resolved -Do not give respiratory depressing medications #. Asthma: -combivent #. Hypertension: - Continue metoprolol 25 mg w/ holding parameters #. Dyslipidemia: - pravastatin 40 MG #. Anxiety/depression: - Will continue Venlafaxine 37.5 MG #. GERD: -Continue omeprazole 20 mg daily DVT prophylaxis: -Lovenox 40mg IV BID Disposition: Pending clinical improvement CODE STATUS: FULL CODE Prognosis: Guarded VS,Fishbone, I+O VS, Fishbone, I+O Laboratory Tests 03/26/20 06:06 Vital Signs Date Time Temp Pulse Resp B/P (MAP) Pulse Ox O2 Delivery O2 Flow Rate FiO2 03/26/20 10:33 66 110/59 03/26/20 09:00 4.0 03/26/20 08:25 97.8 18 91 Nasal Cannula 03/24/20 14:00 I&O- Last 24 Hours up to 6 AM 03/26/20 06:00 Intake Total 1330 ml Output Total 1000 ml Balance 330 ml GME ATTESTATION GME ATTESTATION My faculty preceptor for this patient encounter was physically present during the encounter and was fully available. All aspects of the patient interview, examination, medical decision making process, and medical care plan development were reviewed and approved by the faculty preceptor. The faculty preceptor is aware and concurs with the plan as stated in the body of this note and will attest to such by his/her cosignature. ATTENDING NOTE I, Rudolph Davis MD, have independently examined this patient and performed my own physical exam, as well as reviewed the documentation and edited where necessary. I have discussed in detail with the resident / student the findings and plan of treatment as documented by the resident / student and edited their note. I agree with their findings and treatment plan and have edited their documentation. ABDIEL CAMPUZANO DO Mar 26, 2020 14:00 RUDOLPH DAVIS MD Mar 29, 2020 12:58
[2020-03-26 16:21] VITALS: BP 122/66
[2020-03-26] MEDS: ASCORBIC ACID 250 MG TAB PO SCH (16:22)
[2020-03-26 19:56] VITALS: BP 159/72
[2020-03-26] MEDS: REMDESIVIR 100 MG in NS 250 ML IV SCH (22:59)
[2020-03-27 04:14] VITALS: BP 137/66
[2020-03-27 07:42] VITALS: BP 138/69
[2020-03-27 07:50] VITALS: O2SAT 88
[2020-03-27] MEDS: SYMBICORT 80/4.5MCG INHALER 6GM INH SCH ×2 (07:51→20:08)
[2020-03-27] MEDS: METOPROLOL SUCC *XL* 25MG TAB (TopROL *XL*) PO SCH ×2 (09:00→20:07)
[2020-03-27 09:07] LABS: BASO % 0.2 % (0.0-1.0); EOS # 0.2 10^3/uL (0.0-0.5); EOS % 1.8 % (0.0-3.0); HEMATOCRIT 44.5 % (42.0-52.0); HEMOGLOBIN 15.3 g/dl (13.5-17.5); LYMPH # 0.9 10^3/uL (1.5-5.0); LYMPH % 9.6 % (24.0-44.0); MEAN CORPUSCULAR HEMOGLOBIN 31.9 pg (27.0-33.0); MEAN CORPUSCULAR HGB CONC 34.4 g/dl (32.0-36.5); MEAN CORPUSCULAR VOLUME 92.7 fl (80.0-96.0); MONO # 0.4 10^3/uL (0.0-0.8); MONO % 3.8 % (0.0-5.0); NEUTROPHILS # 7.8 10^3/uL (1.5-8.5); NEUTROPHILS % 81.2 % (36.0-66.0); PLATELET COUNT, AUTOMATED 355 10^3/uL (150-450); WHITE BLOOD COUNT 9.6 10^3/uL (4.0-10.0)
[2020-03-27 09:29] LABS: ALBUMIN 2.7 GM/DL (3.2-5.2); ALT/SGPT 80 U/L (12-78); BILIRUBIN,TOTAL 0.6 MG/DL (0.2-1.0); BLOOD UREA NITROGEN 13 MG/DL (7-18); CALCIUM LEVEL 8.6 MG/DL (8.5-10.1); CARBON DIOXIDE LEVEL 28 MEQ/L (21-32); CHLORIDE LEVEL 100 MEQ/L (98-107); CREATININE FOR GFR 0.83 MG/DL (0.70-1.30); GLOMERULAR FILTRATION RATE > 60.0 (>56); GLUCOSE, FASTING 90 MG/DL (70-100); SODIUM LEVEL 138 MEQ/L (136-145); TOTAL PROTEIN 6.3 GM/DL (6.4-8.2)
[2020-03-27] MEDS: dexameTHASONE 4 MG/ML 1ML VIAL (J1100 PER 1MG) IV SCH (09:46)
[2020-03-27] MEDS: NYSTATIN 500,000 U/5 ML SUSP UDC SS SCH ×2 (09:46→20:07)
[2020-03-27] MEDS: ENOXAPARIN 40MG/0.4ML SYRINGE (J1650 PER 10MG) SC SCH (09:46)
[2020-03-27] MEDS: ASPIRIN 81 MG ENTERIC TAB PO SCH (09:47)
[2020-03-27] MEDS: VENLAFAXINE **XR** 37.5 MG CAPSULE PO SCH (09:47)
[2020-03-27] MEDS: OMEPRAZOLE 20 MG CAP PO SCH (09:47)
[2020-03-27] MEDS: ASCORBIC ACID 250 MG TAB PO SCH (09:47)
[2020-03-27] MEDS: PRAVASTATIN 20 MG TAB PO SCH (09:47)
[2020-03-27] MEDS: DOXYCYCLINE HYCLATE 100MG TABLET PO SCH ×2 (09:47→20:07)
[2020-03-27] MEDS: FLUTICASONE PROP 0.05% NASAL SPRAY 16 GM (FLONASE) NARES SCH ×2 (09:48→20:07)
--- NOTE | 2020-03-27 10:24 | ECHO ---
DATE OF PROCEDURE: 03/25/2020 Age: 59 Gender: Male Height: 185 cm Weight: 125 kg REFERRING PHYSICIAN: Malcolm Jade DO INDICATION: Dyspnea. MEASUREMENTS: IVS 1.1 cm LV 5.1 cm LVPW 1.1 cm LA 4.6 cm Aorta 3.5 cm RV 4.8 cm FINDINGS: This study is of fair technical quality, underlying sinus rhythm. Left ventricle is of normal size and has normal systolic function, estimated LVEF approximately 60%. No segmental wall motion abnormalities are appreciated. Right ventricle appears mildly dilated on limited views. Both atria are at least mildly enlarged. Aortic valve is sclerotic, but has three cusps and preserved mobility. Mitral, tricuspid, and pulmonic valve appears structurally normal. No pericardial effusion is noted. Inferior vena cava was not visualized. Aortic root and aortic arch appear normal, abdominal aorta was not well visualized. Doppler interrogation reveals no significant aortic stenosis or insufficiency. Same applies for mitral and tricuspid valves. Trace pulmonic insufficiency seen. Mitral inflow pattern and tissue Doppler imaging of the mitral annulus reveals likely normal diastolic function. CONCLUSIONS: 1. Study is of fair technical quality, underlying sinus rhythm. 2. Normal LV size with likely normal LV systolic and diastolic function. 3. Aortic sclerosis, but no stenosis or insufficiency. 4. Functionally competent mitral, tricuspid, and pulmonic valves. 5. Unable to estimate central venous pressure and pulmonary artery pressure. MTDD
--- NOTE | 2020-03-27 10:55 | IPNPDOC ---
Text Note Date of Service The patient was seen on 03/27/20. NOTE SUBJECTIVE: No acute events overnight, patient reports he feels got no sleep last night because he felt like his nose was stuffed and he couldn't breath. He denies any fever, chills, night sweats, chest pain, palpitations, N/V/D. He went back up on his oxygen to 5 L overnight but is already back to 3L this morning. He has had some blood clots in his nose and after receiving saline nasal spray blew out several large blood clots. OBJECTIVE: PHYSICAL EXAMINATION: VITAL SIGNS: please see below General: Laying in bed comfortably speaking in complete sentences with nasal can nula in place HEENT: NC, AT, EOMI, sclerae clear Neck: supple, normal ROM, no JVD Respiratory: Diminished breath sounds bilaterally, no wheezes, crackles, or rhonchi. CVS: RRR, normal S1, S2, no murmurs Abdo: soft, no masses, no hepatosplenomegaly, BS+, no rebound tenderness Extremities: no edema, pulses 2+ MSK: no joint deformities, normal ROM Neuro: no focal neurologic deficits, moves all 4 extremities, CN II-XII grossly intact. Psych: calm, cooperative, A/O x 3 LABORATORY DATA, IMAGING STUDIES, MICROBIOLOGY: Please see below. DVT prophylaxis ordered?: Lovenox prophylactic doses of 0.5 mg/kg every 12 hours ASSESSMENT AND PLAN: 59-year-old male patient with history of asthma, hypertension, HDL, obesity, presenting with hypoxia. Admitted to hospitalist service for management of COVID-19 infection. Patient continues to have intermittent hypoxia and requires intermediate doses of oxygen by nasal cannula. #. Acute hypoxic respiratory failure 2/2 Covid-19 - Remdesivir (Day 7), will continue with last day on Wednesday 03/29, dexamethasone 6 mg IV daily (day 7) - procal elevated, CXR c/w pneumonia; continue Doxy (day 4) - Given blood clots will decrease Lovenox to 40 daily, it is also encouraging that his d dimer has been downtrending as well. - Continue albuterol inhaler, Tessalon Perles Continue incentive spirometry, Zinc, vitamin C, saline nasal spray. - Repeat CXR from 03/25 showing subtle #. Transaminitis -Mild elevation of AST and ALT is expected not only with COVID but with Remdesivir as well. He is not demonstrating any additional clinical signs/symptoms of liver inflammation at this time. Advise discontinuation in the event ALT>10 ULN but should likely be discontinued if a trend shows it continuing to trend upward, will continue to follow with daily liver panels. #. Asthma: -Combivent #. Hypertension: - Continue metoprolol 25 mg w/ holding parameters #. Dyslipidemia: - Pravastatin 40 MG #. Anxiety/depression: - Continue Venlafaxine 37.5 MG #. GERD: -Continue omeprazole 20 mg daily DVT prophylaxis: -Lovenox 40mg IV BID Disposition: Pending clinical improvement CODE STATUS: FULL CODE Prognosis: Guarded VS,Fishbone, I+O VS, Fishbone, I+O Laboratory Tests 03/27/20 08:41 Vital Signs Date Time Temp Pulse Resp B/P (MAP) Pulse Ox O2 Delivery O2 Flow Rate FiO2 03/27/20 09:00 65 138/69 03/27/20 07:50 88 Nasal Cannula 5.0 03/27/20 07:42 97.3 17 03/24/20 14:00 I&O- Last 24 Hours up to 6 AM 03/27/20 06:00 Intake Total 2321 ml Output Total 1700 ml Balance 621 ml GME ATTESTATION GME ATTESTATION My faculty preceptor for this patient encounter was physically present during the encounter and was fully available. All aspects of the patient interview, examination, medical decision making process, and medical care plan development were reviewed and approved by the faculty preceptor. The faculty preceptor is aware and concurs with the plan as stated in the body of this note and will attest to such by his/her cosignature. ABDIEL CAMPUZANO DO Mar 27, 2020 10:55
[2020-03-27] MEDS ORDERED: ENOXAPARIN 40MG/0.4ML SYRINGE (J1650 PER 10MG) SC SCH (11:30)
[2020-03-27] MEDS: ZINC SULFATE 220 MG CAP PO SCH (12:03)
[2020-03-27 16:00] VITALS: BP 113/72
[2020-03-27 19:56] VITALS: BP 118/61
[2020-03-27] MEDS: REMDESIVIR 100 MG in NS 250 ML IV SCH (23:31)
[2020-03-28] MEDS ORDERED: SODIUM CHLORIDE 0.9% INJ 10 ML SYR IV SCH
[2020-03-28 04:13] VITALS: BP 131/81
[2020-03-28 08:00] VITALS: BP 112/71
[2020-03-28 08:03] LABS: BASO % 0.2 % (0.0-1.0); EOS # 0.1 10^3/uL (0.0-0.5); EOS % 1.3 % (0.0-3.0); HEMATOCRIT 42.9 % (42.0-52.0); HEMOGLOBIN 14.9 g/dl (13.5-17.5); LYMPH # 1.1 10^3/uL (1.5-5.0); LYMPH % 12.5 % (24.0-44.0); MEAN CORPUSCULAR HEMOGLOBIN 31.8 pg (27.0-33.0); MEAN CORPUSCULAR HGB CONC 34.7 g/dl (32.0-36.5); MEAN CORPUSCULAR VOLUME 91.7 fl (80.0-96.0); MONO # 0.3 10^3/uL (0.0-0.8); MONO % 3.8 % (0.0-5.0); NEUTROPHILS # 6.9 10^3/uL (1.5-8.5); NEUTROPHILS % 78.7 % (36.0-66.0); PLATELET COUNT, AUTOMATED 389 10^3/uL (150-450); RED BLOOD COUNT 4.68 10^6/uL (4.30-6.10); WHITE BLOOD COUNT 8.8 10^3/uL (4.0-10.0)
[2020-03-28] MEDS: SYMBICORT 80/4.5MCG INHALER 6GM INH SCH (08:05)
[2020-03-28 08:22] LABS: ALBUMIN 2.5 GM/DL (3.2-5.2); ALT/SGPT 87 U/L (12-78); BILIRUBIN,TOTAL 0.4 MG/DL (0.2-1.0); BLOOD UREA NITROGEN 18 MG/DL (7-18); CALCIUM LEVEL 8.1 MG/DL (8.5-10.1); CARBON DIOXIDE LEVEL 25 MEQ/L (21-32); CHLORIDE LEVEL 104 MEQ/L (98-107); CREATININE FOR GFR 0.84 MG/DL (0.70-1.30); GLOMERULAR FILTRATION RATE > 60.0 (>56); GLUCOSE, FASTING 94 MG/DL (70-100); POTASSIUM SERUM 4.6 MEQ/L (3.5-5.1); SODIUM LEVEL 138 MEQ/L (136-145); TOTAL PROTEIN 6.2 GM/DL (6.4-8.2)
[2020-03-28] MEDS: NYSTATIN 500,000 U/5 ML SUSP UDC SS SCH (08:43)
[2020-03-28] MEDS: DOXYCYCLINE HYCLATE 100MG TABLET PO SCH (08:47)
[2020-03-28] MEDS: PRAVASTATIN 20 MG TAB PO SCH (08:47)
[2020-03-28] MEDS: VENLAFAXINE **XR** 37.5 MG CAPSULE PO SCH (08:47)
[2020-03-28] MEDS: OMEPRAZOLE 20 MG CAP PO SCH (08:47)
[2020-03-28 08:48] VITALS: BP 112/71
[2020-03-28] MEDS: ASPIRIN 81 MG ENTERIC TAB PO SCH (08:48)
[2020-03-28] MEDS: ASCORBIC ACID 250 MG TAB PO SCH (08:48)
[2020-03-28] MEDS: METOPROLOL SUCC *XL* 25MG TAB (TopROL *XL*) PO SCH (08:48)
[2020-03-28] MEDS: dexameTHASONE 4 MG/ML 1ML VIAL (J1100 PER 1MG) IV SCH (08:49)
[2020-03-28] MEDS: FLUTICASONE PROP 0.05% NASAL SPRAY 16 GM (FLONASE) NARES SCH (08:49)
[2020-03-28] MEDS ORDERED: ENOXAPARIN 40MG/0.4ML SYRINGE (J1650 PER 10MG) SC SCH (09:00)
[2020-03-28] MEDS ORDERED: DEXA2TA PO (10:23)
[2020-03-28] MEDS ORDERED: ASCO250T20 PO (10:23)
[2020-03-28] MEDS ORDERED: ZINC220CA PO (10:23)
--- NOTE | 2020-03-28 10:31 | DS.PDOC ---
Discharge Summary General Date of Admission Mar 21, 2020 at 14:49 Date of Discharge 03/28/2020 Primary Care Physician: Deann Georges Attending Physician: HERMELINDO SMITH MD Discharge Summary PROCEDURES PERFORMED DURING STAY: Transthoracic echocardiogram "LVEF approximately 60%. CONCLUSIONS: 1. Study is of fair technical quality, underlying sinus rhythm. 2. Normal LV size with likely normal LV systolic and diastolic function. 3. Aortic sclerosis, but no stenosis or insufficiency. 4. Functionally competent mitral, tricuspid, and pulmonic valves. 5. Unable to estimate central venous pressure and pulmonary artery pressure." ADMITTING/DISCHARGE DIAGNOSES: Hypoxemic respiratory failure secondary to Covid 19 pneumonia Koba 19 pneumonia Transaminitis Asthma Hypertension Dyslipidemia Anxiety/depression GERD COMPLICATIONS/CHIEF COMPLAINT: Hypoxemic respiratory failure 2/2 COVID-19 pneumonia HISTORY OF PRESENT ILLNESS: "59 year old male with past medical history of hypertension, asthma and hyperlipidemia, presents to ED for worsening cough, fatigue, malaise and fevers. He states his symptoms began 03/11/20, and tested positive for COVID-19 on 03/15/20. Denies chest pain, headaches, abdominal pain, nausea, vomiting diarrhea." HOSPITAL COURSE: Patient was admitted for acute hypoxemic respiratory failure requiring 4-5 L of nasal cannula. He was started on REM duskier, dexamethasone, intermediate dosing of Lovenox, inhalers, and antibiotics for superimposed bacterial pneumonia as well as Covid 19 pneumonia. On days 2, 3, and 4 the pat ient's oxygen saturations continued to drop and he required increasing amounts of oxygen including high flow nasal cannula for short duration of time getting up to 9 or 10 L. On day 5 during the daytime he was able to be weaned down to 5 L nasal cannula and on day 6 and 7 he experienced significant improvement in his oxygenation status and was able to be weaned down to 2-3 L of oxygen and was deemed stable for discharge home. He was sent home with home health as well as home oxygen following failure to adequately maintain his saturations during a 6 minute walk test. Specifically he was instructed to use 4 L with activity and 3 L at rest. DISCHARGE MEDICATIONS: Please see below. ALLERGIES: Please see below. PHYSICAL EXAMINATION ON DISCHARGE: VITAL SIGNS: Please see below. General: Laying in bed comfortably speaking in complete sentences with nasal cannula in place HEENT: NC, AT, EOMI, sclerae clear Neck: supple, normal ROM, no JVD Respiratory: Diminished breath sounds bilaterally, no wheezes, crackles, or rhonchi. CVS: RRR, normal S1, S2, no murmurs Abdo: soft, no masses, no hepatosplenomegaly, BS+, no rebound tenderness Extremities: no edema, pulses 2+ MSK: no joint deformities, normal ROM Neuro: no focal neurologic deficits, moves all 4 extremities, CN II-XII grossly intact. Psych: calm, cooperative, A/O x 3 LABORATORY DATA: Please see below. IMAGIN03/21/20 chest x-ray: Diffuse bilateral infiltrates left greater than right. 03/22/20 CT angiogram: No CT evidence of pulmonary diffuse patchy bilateral infiltrates. 03/24/20 chest x-ray: Bilateral lung field opacities essentially unchanged from the prior exam with the exception of the right upper lobe where airspace disease may have increased. 03/25/20 chest x-ray: Subtle bilateral airspace disease similar to prior examination. PROGNOSIS: Fair ACTIVITY: As tolerated DIET: As tolerated DISCHARGE PLAN: Home DISPOSITION: Home, Self-Care. DISCHARGE INSTRUCTIONS: 1. Please follow-up with PCP within one week. 2. Please complete dexamethasone regimen as instructed. 3. Please return to hospital if symptoms worsen. DISCHARGE CONDITION: Stable. TIME SPENT ON DISCHARGE: 33 minutes. Vital Signs/I&Os Vital Signs Date Time Temp Pulse Resp B/P (MAP) Pulse Ox O2 Delivery O2 Flow Rate FiO2 03/28/20 09:51 2.0 03/28/20 08:48 77 112/71 03/28/20 08:00 97.2 19 89 Nasal Cannula 03/24/20 14:00 I&O- Last 24 Hours up to 6 AM 03/28/20 05:59 Intake Total 1782 ml Output Total 1300 ml Balance 482 ml Laboratory Data Labs 24H Laboratory Tests 2 03/28/20 07:42: Immature Granulocyte % (Auto) 3.5H, Neutrophils (%) (Auto) 78.7H, Lymphocytes (%) (Auto) 12.5L, Monocytes (%) (Auto) 3.8, Eosinophils (%) (Auto) 1.3, Basophils (%) (Auto) 0.2, Neutrophils # (Auto) 6.9, Lymphocytes # (Auto) 1.1L, Monocytes # (Auto) 0.3, Eosinophils # (Auto) 0.1, Basophils # (Auto) 0.0, Nucleated Red Blood Cells % (auto) 0.0, D-Dimer, Quantitative 1467.04H, Anion Gap 9, Glomerular Filtration Rate > 60.0, Calcium Level 8.1L, Total Bilirubin 0.4, Aspartate Amino Transf (AST/SGOT) 51H, Alanine Aminotransferase (ALT/SGPT) 87H, Alkaline Phosphatase 71, Total Protein 6.2L, Albumin 2.5L, Albumin/Globulin Ratio 0.7 CBC/BMP Laboratory Tests 03/28/20 07:42 Microbiology Microbiology 03/21/20 Blood Culture - Final, Complete NO GROWTH AFTER 5 DAYS 03/21/20 Blood Culture - Final, Complete NO GROWTH AFTER 5 DAYS Discharge Medications Scheduled Ascorbic Acid (Vitamin C) 250 Mg Tablet, 250 MG PO DAILY Budesonide/Formoterol (Symbicort 80-4.5 Mcg Inhaler) 6.9 Gm Hfa.aer.ad, 2 PUFFS INH BID, (Reported) Dexamethasone (Dexamethasone) 2 Mg Tablet, 1 TAB PO DAILY Metoprolol Succinate (Toprol Xl) 25 Mg Tab, 25 MG PO BID, (Reported) Omeprazole (Omeprazole) 20 Mg Capsule.dr, 20 MG PO DAILY, (Reported) Pravastatin Sodium (Pravachol) 40 Mg Tab, 40 MG PO DAILY, (Reported) Venlafaxine HCl (Venlafaxine HCl ER) 37.5 Mg Cap.er.24h, 37.5 MG PO DAILY, (Reported) Zinc Sulfate (Zinc Sulfate) 220 Mg Capsule, 220 MG PO DAILY@1200 Scheduled PRN Albuterol Sulfate (Ventolin Hfa) 18 Gm Hfa.aer.ad, 2 PUFFS INH QID PRN for SHORTNESS OF BREATH, (Reported) Allergies Coded Allergies: cephalexin (Verified Allergy, Intermediate, HIVES, 01/24/20) ENVIROMENTAL (Verified Allergy, Unknown, 01/24/20) GME ATTESTATION GME ATTESTATION My faculty preceptor for this patient encounter was physically present during the encounter and was fully available. All aspects of the patient interview, examination, medical decision making process, and medical care plan development were reviewed and approved by the faculty preceptor. The faculty preceptor is aware and concurs with the plan as stated in the body of this note and will attest to such by his/her cosignature. ABDIEL CAMPUZANO DO Mar 28, 2020 10:31
[2020-03-28] MEDS: ZINC SULFATE 220 MG CAP PO SCH (12:25)
== END 2020-03-28 16:09 | disposition home health service (06) | DRG 177 ==
LOC: M ED 12:21 → M ED INP 14:49 → ENRESERVDT 20:08 → ENRESERVTM 20:08 → M 4MAIN 21:51
PROVIDERS: ADMIT Internal Medicine; ATTEND Internal Medicine
PROC: 3E0333Z Introduction of Anti-inflammatory into Peripheral Vein, Percutaneous Approach (ICD-10-PCS; principal; 2020-03-21)
PROC: XW033E5 Introduction of Remdesivir Anti-infective into Peripheral Vein, Percutaneous Approach, New Technology Group 5 (ICD-10-PCS; 2020-03-21)
DX: U07.1 COVID-19 (principal); J12.89 Other viral pneumonia; J96.01 Acute respiratory failure with hypoxia; J45.909 Unspecified asthma, uncomplicated; E78.5 Hyperlipidemia, unspecified; I10 Essential (primary) hypertension; E66.9 Obesity, unspecified; F41.9 Anxiety disorder, unspecified; F32.9 Major depressive disorder, single episode, unspecified; K21.9 Gastro-esophageal reflux disease without esophagitis; Z79.899 Other long term (current) drug therapy; Z88.1 Allergy status to other antibiotic agents; Z68.36 Body mass index [BMI] 36.0-36.9, adult

== ENCOUNTER → 2021-01-07 | Outpatient (CLI) | payer OTHER ==
[~2021-01-07] MED LIST changes: +ASCO250T20 PO; +DEXA2TA PO; +METH4PACK PO; +SYMB80INH INH; +VENL37.598 PO; +ZINC220CA PO
--- NOTE | 2021-01-07 11:01 | REP ---
INDICATION: PAIN IN RT HIP. COMPARISON: None. TECHNIQUE: Axial T1 and T2. Sagittal T2. Coronal T1, fat suppressed proton density, fat suppressed T2 and STIR. FINDINGS: There is a 7.1 x 3.6 x 4.2 cm sized smoothly marginated structure of intense T1 and T2 prolongation within the right iliopsoas muscle. There is an additional structure of similar imaging characteristics in the base of the obturator externus muscle which measures 4.3 x 1.7 x 2.5 cm. The femoral heads are spherical in shape and symmetric in appearance. There is mild bilateral rather symmetric appearing hip joint space narrowing. There is mild subchondral acetabular T2 hyper signal on the right. There is mild to moderate bilateral T2 hyper signal in the trochanteric tendono bursal region of each hip. There is no laura hip joint effusion. Dedicated small [id number] magnified right hip images in all 3 planes shows linear hyper signal in the superolateral labrum. IMPRESSION: 1. There is evidence of ileo psoas bursitis and obturator externus bursitis with large focal fluid collections on the right as described above. 2. Hip degenerative changes as described above. There is subchondral edema in the right acetabulum as described above. 3. Right hip labral signal changes possibly reflecting a labral tear. This could be further evaluated with hip MRI arthrography if clinically relevant. 4. Mild to moderate bilateral trochanteric tendono bursitis. <Electronically signed by King Farias > 01/07/21 [id number]
== END ==
LOC: M PLAIMG 08:18
PROVIDERS: ATTEND Orthopaedic Surgery
DX: M25.551 Pain in right hip (principal); M16.11 Unilateral primary osteoarthritis, right hip; M70.61 Trochanteric bursitis, right hip; M70.62 Trochanteric bursitis, left hip

== ENCOUNTER → 2021-11-20 | Outpatient (CLI) | payer OTHER ==
[~2021-11-20] MED LIST changes: -RIFA300C3 PO; +RIFA300C8 PO
[2021-11-20 09:41] LABS: HEMATOCRIT 47.2 % (42.0-52.0); HEMOGLOBIN 15.8 g/dl (13.5-17.5); MEAN CORPUSCULAR HEMOGLOBIN 32.6 pg (27.0-33.0); MEAN CORPUSCULAR HGB CONC 33.5 g/dl (32.0-36.5); MEAN CORPUSCULAR VOLUME 97.5 fl (80.0-96.0); PLATELET COUNT, AUTOMATED 190 10^3/uL (150-450); RED BLOOD COUNT 4.84 10^6/uL (4.30-6.10); WHITE BLOOD COUNT 4.6 10^3/uL (4.0-10.0)
[2021-11-20 10:01] LABS: HEMOGLOBIN A1c 5.3 %
[2021-11-20 10:25] LABS: ALT/SGPT 48 U/L (12-78); BILIRUBIN,TOTAL 0.9 MG/DL (0.2-1.0); BLOOD UREA NITROGEN 12 MG/DL (7-18); CALCIUM LEVEL 9.5 MG/DL (8.8-10.2); CARBON DIOXIDE LEVEL 29 MEQ/L (21-32); CHLORIDE LEVEL 102 MEQ/L (98-107); CHOLESTEROL LEVEL 234 MG/DL (<200); CHOLESTEROL RISK RATIO 2.543 (<5); CREATININE FOR GFR 0.98 MG/DL (0.70-1.30); GLOMERULAR FILTRATION RATE > 60.0 (>49); GLUCOSE, FASTING 100 MG/DL (70-100); HDL CHOLESTEROL 92 MG/DL (>40); LDL CHOLESTEROL 96 MG/DL (<100); NON-HDL-C 142 MG/DL; POTASSIUM SERUM 4.7 MEQ/L (3.5-5.1); PROSTATIC SPECIFIC AG MONITOR 0.63 NG/ML (< 4.00); SODIUM LEVEL 134 MEQ/L (136-145); TRIGLYCERIDES LEVEL 230 MG/DL (<150)
[2021-11-20 10:49] LABS: TESTOSTERONE 321 NG/DL (241-827)
== END ==
LOC: M LAB 08:12
PROVIDERS: ATTEND Family Medicine
DX: I10 Essential (primary) hypertension (principal); R53.83 Other fatigue; E03.9 Hypothyroidism, unspecified; M47.817 Spondylosis without myelopathy or radiculopathy, lumbosacral region

== ENCOUNTER → 2023-01-27 | Outpatient (CLI) | payer OTHER ==
[~2023-01-27] MED LIST changes: +MONT-5 PO; -SING10TA32 PO
[2023-01-27 10:15] LABS: HEMATOCRIT 45.2 % (42.0-52.0); HEMOGLOBIN 15.7 g/dl (13.5-17.5); MEAN CORPUSCULAR HEMOGLOBIN 33.6 pg (27.0-33.0); MEAN CORPUSCULAR HGB CONC 34.7 g/dl (32.0-36.5); MEAN CORPUSCULAR VOLUME 96.8 fl (80.0-96.0); PLATELET COUNT, AUTOMATED 211 10^3/uL (150-450); RED BLOOD COUNT 4.67 10^6/uL (4.30-6.10); WHITE BLOOD COUNT 10.7 10^3/uL (4.0-10.0)
[2023-01-27 10:35] LABS: HEMOGLOBIN A1c 5.2 % (4.0-6.0)
[2023-01-27 10:54] LABS: ALBUMIN 3.7 G/DL (3.2-5.2); ALKALINE PHOSPHATASE 71 U/L (46-116); ALT/SGPT 47 U/L (7.0-40); AST/SGOT 25 U/L (<34); BILIRUBIN,TOTAL 0.4 MG/DL (0.3-1.2); BLOOD UREA NITROGEN 10 MG/DL (9-23); CALCIUM LEVEL 9.3 MG/DL (8.3-10.6); CARBON DIOXIDE LEVEL 28 MMOL/L (20-31); CHLORIDE LEVEL 103 MMOL/L (98-107); CHOLESTEROL LEVEL 244 MG/DL (<200); CHOLESTEROL RISK RATIO 2.94 (<5); CREATININE FOR GFR 0.89 MG/DL (0.70-1.30); GLOMERULAR FILTRATION RATE > 60.0 (>49); GLUCOSE, FASTING 71 MG/DL (74-106); HDL CHOLESTEROL 82.9 MG/DL (>40); LDL CHOLESTEROL 130.3 MG/DL (<100); NON-HDL-C 161.1 MG/DL; SODIUM LEVEL 137 MMOL/L (136-145); TESTOSTERONE 446 NG/DL (241-827); TOTAL PROTEIN 7.3 G/DL (5.7-8.2); TRIGLYCERIDES LEVEL 154 MG/DL (<150)
[2023-01-27 12:35] LABS: THYROID STIMULATING HORMONE 4.206 uIU/ML (0.55-4.78)
== END ==
LOC: M LAB 09:35
PROVIDERS: ATTEND Family Medicine
DX: I10 Essential (primary) hypertension (principal); E11.9 Type 2 diabetes mellitus without complications; R53.83 Other fatigue; E03.9 Hypothyroidism, unspecified

== ENCOUNTER → 2023-12-27 | Outpatient (REF) ==
[~2023-12-27] MED LIST changes: -EFFE37.5 PO; +EFFE37.52 PO; +RIFA300C62 PO; -RIFA300C8 PO
== END ==
LOC: M RAD 08:57
PROVIDERS: ATTEND Internal Medicine
DX: R06.02 Shortness of breath (principal)

== ENCOUNTER 2025-01-08 09:39 | Day surgery (SDC) | payer OTHER ==
[~2025-01-08] VITALS: Ht 185.4 cm; Wt 117.9 kg
[~2025-01-08 09:39] MED LIST changes: +SEMA0.252 SQ
[2025-01-08] MEDS ORDERED: LIDOCAINE 2% 100 MG/5 ML SDV (FOR ANES.) As Ordered ONE (10:16)
[2025-01-08 11:01] VITALS: BP 107/62; O2SAT 95
== END 2025-01-08 11:17 | disposition home or self-care (01) ==
LOC: M OPP 09:39
PROVIDERS: ATTEND Internal Medicine Gastroenterology
DX: Z12.11 Encounter for screening for malignant neoplasm of colon (principal); K57.30 Diverticulosis of large intestine without perforation or abscess without bleeding; K64.0 First degree hemorrhoids; Z80.0 Family history of malignant neoplasm of digestive organs; G47.30 Sleep apnea, unspecified; Z88.8 Allergy status to other drugs, medicaments and biological substances; Z91.048 Other nonmedicinal substance allergy status; Z79.85 Long-term (current) use of injectable non-insulin antidiabetic drugs; Z79.899 Other long term (current) drug therapy; J45.909 Unspecified asthma, uncomplicated